=== PATIENT | male | born 1940 | race Caucasian/White ===

== ENCOUNTER → 2017-06-08 | Outpatient (CLI) | payer OTHER ==
[~2017-06-08] MED LIST: ADVIN25050 INH; ALBU1AER9 INH; ASPI81TA21 PO; FURO20TA PO; OXYC-57 PO; SIMV20TA2 PO; TIOTCAP INH; oxygen NAE
[2017-06-08 17:44] LABS: BASO % 0.3 %; BASO ABS # 0.04 K/uL (0-0.2); COMPLETE YES; EOS % 1.5 %; HEMATOCRIT 39.8 % (42-52); IG% 0.6 %; LYMPH % 21.4 %; LYMPH ABS # 3.03 K/uL (1.2-3.4); MEAN CELL VOLUME 96.1 fL (80-100); MEAN CORPUSCULAR HEMOGLOBIN 31.9 pg (25-34); MEAN CORPUSCULAR HGB CONC 33.2 g/dl (32-36); MEAN PLATELET VOLUME 10.2 fL (7.4-10.4); MONO % 6.8 %; NEUT % 69.4 %; PLATELET COUNT 216 K/uL (130-400); RED BLOOD COUNT 4.14 M/uL (4.7-6.1); WHITE BLOOD COUNT 14.17 K/uL (4.8-10.8)
[2017-06-08 17:56] LABS: URINE APPEARANCE CLEAR (CLEAR); URINE BILIRUBIN NEG (NEG); URINE COLOR YELLOW; URINE EPITHELIAL CELL AUTO 0-5 /lpf (0-5); URINE NITRITE NEG (NEG); UROBILINOGEN NEG (NEG); ZZUR CULT IF INDIC CLEAN CATCH NO
[2017-06-08 18:08] LABS: MANUAL MICROSCOPIC REQUIRED? NO; REVIEW REQ? NO
[2017-06-08 18:12] LABS: ALT/SGPT 19 U/L (12-78); AST/SGOT 16 U/L (15-37); BLOOD UREA NITROGEN 20 mg/dl (7-18); BUN/CREATININE RATIO 12.3 (10-20); CALCIUM 9.4 mg/dl (8.5-10.1); CARBON DIOXIDE 30 mmol/L (21-32); CHLORIDE 106 mmol/L (98-107); GLUCOSE 89 mg/dl (70-99); POTASSIUM 4.5 mmol/L (3.5-5.1); SODIUM 141 mmol/L (136-145)
[2017-06-08 18:14] LABS: ALKALINE PHOSPHATASE 99 U/L (45-117); CHOLESTEROL 147 mg/dl (0-200); CHOLESTEROL/HDL RATIO 3.8; HDL CHOLESTEROL 39 mg/dl; LDL CHOLESTEROL CALCULATED 84 mg/dl; TRIGLYCERIDES 120 mg/dl (0-150); VERY LOW DENSITY LIPOPROT CALC 24 mg/dl
== END | disposition home or self-care (01) ==
LOC: C.LABBFT 11:56
PROVIDERS: ATTEND Internal Medicine
DX: I50.9 Heart failure, unspecified (principal); E78.00 Pure hypercholesterolemia, unspecified

== ENCOUNTER → 2017-12-15 | Outpatient (CLI) | payer OTHER ==
[2017-12-15 17:15] LABS: BASO % 0.3 %; BASO ABS # 0.04 K/uL (0-0.2); EOS % 1.5 %; EOS ABS # 0.21 K/uL (0-0.5); HEMATOCRIT 40.9 % (42-52); HEMOGLOBIN 13.4 g/dL (14.0-18.0); IG# 0.11 K/uL (0.00-0.02); LYMPH % 21.2 %; LYMPH ABS # 2.94 K/uL (1.2-3.4); MEAN CELL VOLUME 94.5 fL (80-100); MEAN CORPUSCULAR HEMOGLOBIN 30.9 pg (25-34); MEAN CORPUSCULAR HGB CONC 32.8 g/dl (32-36); MONO % 7.6 %; MONO ABS # 1.05 K/uL (0.11-0.59); NEUT % 68.6 %; NEUT ABS # 9.51 K/uL (1.4-6.5); PLATELET COUNT 214 K/uL (130-400); RED CELL DISTRIBUTION WIDTH CV 14.1 % (11.5-14.5); RED CELL DISTRIBUTION WIDTH SD 48.5 fL (36.4-46.3); WHITE BLOOD COUNT 13.86 K/uL (4.8-10.8)
[2017-12-15 17:38] LABS: ALBUMIN 3.8 gm/dl (3.4-5.0); BLOOD UREA NITROGEN 27 mg/dl (7-18); CALCIUM 9.5 mg/dl (8.5-10.1); CARBON DIOXIDE 29 mmol/L (21-32); CREATININE 1.36 mg/dl (0.60-1.40); GLUCOSE 90 mg/dl (70-99); PHOSPHORUS 3.1 mg/dl (2.5-4.9); POTASSIUM 4.5 mmol/L (3.5-5.1); SODIUM 138 mmol/L (136-145)
== END | disposition home or self-care (01) ==
LOC: C.LABBFT 13:21
PROVIDERS: ATTEND Internal Medicine
DX: D64.9 Anemia, unspecified (principal); N18.3 Chronic kidney disease, stage 3 (moderate)

== ENCOUNTER 2019-08-18 14:00 | Inpatient (IN) ==
[2019-08-18] MEDS ORDERED: methylPREDNISolone 125 MG/2 ML VIAL IV STA (14:16)
[2019-08-18] MEDS ORDERED: ALBUT/IPRATROP 3MG/0.5MG NEB 3 ML VIAL NEB STA (14:16)
[2019-08-18] MEDS ORDERED: SODIUM CHLORIDE 0.9% 500 ML IV ONE ×2 (14:17→15:27)
--- NOTE | 2019-08-18 14:46 | XRay Report ---
SINGLE VIEW CHEST CLINICAL HISTORY: Atypical chest pain. FINDINGS: 2 AP, portable, upright chest radiographs are compared to study dated 04/19/2015. Correlatio n is made with chest CT dated 01/06/2012. The examination is degraded by portable technique and patien t rotation. The cardiomediastinal silhouette is unremarkable noting atherosclerotic calcification of the thoracic aorta. There is advanced emphysematous change. A bleb largely fills the right lung. The re is airspace consolidation seen in the left mid to lower lung and a small left pleural effusion. No pneumothorax is seen. The skeletal structures are osteopenic. The bony thorax is grossly intact. IMPRESSION: 1. Airspace consolidation is seen in the left mid to lower lung and there is a small left pleural eff usion. The appearance is typical for pneumonia/aspiration pneumonitis. Clinical correlation will be r equired and radiographic follow-up to resolution is recommended. 2. Advanced emphysematous change is again noted. A bleb largely fills the right lung and this is unch anged from prior examinations. Electronically signed by: Reggie Huerta M.D. 08/18/2019 2:45 PM
[2019-08-18 14:49] LABS: Basophils # (auto) 0.01 K/uL (0-0.2); Basophils % (auto) 0.1 %; Eosinophils # (auto) 0.01 K/uL (0-0.5); Eosinophils % (auto) 0.1 %; Hematocrit (blood only) 36.1 % (42-52); Hemoglobin 12.1 g/dL (14.0-18.0); Immature Granulocytes # (auto) 0.07 K/uL (0.00-0.02); Immature Granulocytes % (auto) 0.8 %; Lymphocytes # (auto) 0.45 K/uL (1.2-3.4); Lymphocytes % (auto) 5.3 %; Mean Corpuscular Hemoglobin 31.7 pg (25-34); Mean Corpuscular Hgb Conc 33.5 g/dL (32-36); Mean Corpuscular Volume 94.5 fL (80-100); Mean Platelet Volume 10.5 fL (7.4-10.4); Monocytes # (auto) 0.31 K/uL (0.11-0.59); Monocytes % (auto) 3.6 %; Neutrophils # (auto) 7.67 K/uL (1.4-6.5); Neutrophils % (auto) 90.1 %; Platelet Count 154 K/uL (130-400); RDW Standard Deviation 51.6 fL (36.4-46.3); Red Blood Count 3.82 M/uL (4.7-6.1); White Blood Count 8.52 K/uL (4.8-10.8)
[2019-08-18] MEDS ORDERED: PIPERACILL/TAZOBAC CONSULT ACTIVE PRN (14:50)
[2019-08-18] MEDS ORDERED: VANCOMYCIN HCL 1,250 MG in SODIUM CHLORIDE 0.9% 500 ML IV ONE (14:50)
[2019-08-18] MEDS ORDERED: VANCOMYCIN CONSULT ACTIVE PRN (14:50)
[2019-08-18] MEDS ORDERED: PIPERACILLIN/TAZOBACTAM 4.5 GM/120 ML BAG IV ONE (14:50)
[2019-08-18 15:06] LABS: Alanine Aminotransferase 22 U/L (12-78); Albumin Level 2.7 gm/dl (3.4-5.0); Aspartate Aminotransferase 30 U/L (15-37); BUN Creatinine Ratio 24.1 (10-20); Blood Urea Nitrogen 79 mg/dl (7-18); Calcium 9.7 mg/dl (8.5-10.1); Carbon Dioxide 22 mmol/L (21-32); Chloride 109 mmol/L (98-107); Est GFR (African American) 19.6; Glucose 106 mg/dl (70-99); Lipase 25 U/L (73-393); Magnesium 2.6 mg/dl (1.8-2.4); Potassium 5.9 mmol/L (3.5-5.1); Sodium 141 mmol/L (136-145)
[2019-08-18 15:13] LABS: Base Excess VBG -6.8 mEq/L; HCO3 VBG 21 mmol/L; PCO2 VBG 50 mmHg (38-50); PO2 VBG 20 mmHg; pH VBG 7.23 (7.36-7.41)
[2019-08-18 15:15] LABS: Oxygen Saturation VBG < 60.0 %
[2019-08-18 15:16] LABS: Albumin Globulin Ratio 0.5 (0.9-2); Alkaline Phosphatase 115 U/L (45-117); Bilirubin,Total 1.3 mg/dl (0.2-1); NT Pro B Type Natriuretic Pept 21648 pg/ml (0-1800); Phosphorus 5.9 mg/dl (2.5-4.9); Total Protein 7.7 gm/dl (6.4-8.2); Troponin I 0.141 ng/ml (0-0.045)
--- NOTE | 2019-08-18 16:31 | History & Physical Report ---
Date of Service August 18, 2019 Assessment & Plan (1) Sepsis: Admits to PCU on telemetry. Vital signs every 4 hours Patient was started on vancomycin and Zosyn in the ER for pneumonia. Continue continued treatment with vancomycin and Zosyn for hospital-acquired pneumonia and sepsis. Repeated lactate trended down from 2.7-1.8. DVT prophylaxis heparin 5000 units every 12 hours. Pulmonology consult placed. Dr. Arita informed. Continue supplemental oxygen and BiPAP. Follow-up blood cultures. Continue Solu-Medrol 40 mg IV twice daily. Continue duo nebs and home medicine albuterol sulfate 90 MCG's 2 puffs every 4 hours as needed, Advair discus 1 each inhalation twice daily. Spiriva 1 cap inhalation daily. And increase as per RT. Full code Present on Admission?: Yes (2) Pneumonia: As above Present on Admission?: Yes (3) Acute on chronic respiratory failure: As above Refer to pulmonary. She will most likely need pulmonary rehabilitation. Present on Admission?: Yes (4) Pulmonary hypertension, secondary: Continue current regimen. Will discuss with pulmonary Dr. Arita. Present on Admission?: Yes (5) Pulmonary emphysema: As above Present on Admission?: Yes (6) Hypercholesterolemia: Lipid panel pending. Continue atorvastatin 80 mg p.o. every afternoon. Present on Admission?: Yes (7) Elevated prostate specific antigen (PSA): PSA pending. Follow-up with the results. Present on Admission?: Yes (8) Chronic kidney disease, stage IV (severe): Avoid nephrotoxic agents. Patient creatinine is worsening. Refered to nephrology. Patient appears to be intravascularly dry,with some third spacing such as small left pleural effusion. Present on Admission?: Yes (9) Cardiac failure: Patient appears to be euvolemic. Elevated BNP is due to poor clearance and caused by failing kidneys. Present on Admission?: Yes (10) Anemia: Appears to be of chronic disease. Continue monitoring H&H. Present on Admission?: Yes (11) Elevated troponin: Likely due to worsening renal failure and poor clearance. Patient does not have complaints of chest pain. There are noted T wave inversion in inferior leads, anterior leads and lateral leads. Could be a sign of demand ischemia due to acute infection associated with sepsis and tachycardia. Plan to do TTE. Will repeat troponin in addition x2 with EKG. Consider consulting cardiology in a.m. Present on Admission?: Yes History of Present Illness Chief Complaint: Acute respiratory failure, hypoxia and shortness of breath associated with cough. Primary Care Provider: Andrew Matthews MD Patient is a 79 years old male with past medical history of abdominal aortic aneurysm without rupture, congestive heart failure, chronic kidney disease stage III, chronic respiratory failure, elevated PSA, hypercholesterolemia, COPD/emphysema who presents to the emergency room with a complaint of constant shortness of breath that started yesterday and it is worsening. She reports that shortness of breath is associated with cough with very small amount of sputum. Patient was given DuoNeb treatments en route to the emergency department which he reports made him feel better. Patient said that he is typically on oxygen 2 to 3L but denies using BiPAP or CPAP. Patient continues chewing tobacco but states that he quit smoking approximately 15 years ago. Patient denies having fever, chills, headache, chest pain, abdominal pain, frequency, urgency, syncope or near syncope. Labs are reviewed: Which shows WBCs of 8.52, hemoglobin 12.1, hematocrit 36.1. PT 10.9, INR 1.1, APTT 34.3. Gas pH 7.23, PCO2 50, PO2 20, HCO2 21, sodium 141, potassium 5.9-we will repeat potassium BMP stat pending, BUN 79, creatinine 3.28, GFR of 17, lactate of 2.7 repeated 1.8, calcium of 9.7, phosphorus 5.9 , magnesium 2.6, total bilirubin 1.3, AST 30, ALT 22, alkaline phosphatase 115, troponin 0 0.141, BNP 40306, lipase 25, procalcitonin 7.4 extremely high TSH 0.624. Blood cultures pending. Chest x-ray significant for a spares consolidation in the left mid to lower lung and there is a small left pleural effusion. The appearance is typical for pneumonia/aspiration pneumonitis. Advanced emphysematous changes is again noted. Labs largely feels the right lung and this is unchanged from the prior examination. Emergency room patient was given DuoNeb x1, 1 L of normal saline bolus, Solu-Medrol 125 mg x 1, Zosyn 4.5 mg x 1, BiPAP. Decision was made to admit patient to PCU on telemetry for further management and treatment of pneumonia, respiratory failure, sepsis and hypoxia. Allergies Allergy/AdvReac Type Severity Reaction Status Date / Time No Known Allergies Allergy Unknown Verified 08/18/19 16:18 Home Medications Home Medications Medication Instructions Recorded Confirmed Type Oxygen Home #1 ea 06/13/19 06/13/19 History albuterol sulfate 90 mcg/actuation 2 puffs INHALATION Q4H PRN #3 gm 06/13/19 08/18/19 History aerosol inhaler aspirin [Aspir-81] 81 mg PO Q OTHER DAY 08/18/19 08/18/19 History atorvastatin [Lipitor] 80 mg PO QPM 08/18/19 08/18/19 History fluticasone propion-salmeterol 1 ea INHALATION BID 08/18/19 08/18/19 History [Advair Diskus] furosemide [Lasix] 20 mg PO DAILY 08/18/19 08/18/19 History metoprolol succinate [Toprol XL] 25 mg PO DAILY 08/18/19 08/18/19 History potassium chloride [Klor-Con M20] 20 meq PO BID 08/18/19 08/18/19 History tiotropium bromide [Spiriva with 1 cap INHALATION DAILY 08/18/19 08/18/19 History HandiHaler] Past Med/Surg History Medical History Anemia (Acute) Cardiac failure (Acute) Chronic kidney disease, stage 3 (Acute) Chronic respiratory failure (Acute) COPD (chronic obstructive pulmonary disease) Elevated prostate specific antigen (PSA) (Acute) Hypercholesterolemia (Acute) Hypokalemia (Acute) Leukocytosis (Acute) Pulmonary emphysema (Acute) Pulmonary hypertension, secondary (Acute) Vitamin D deficiency (Acute) Family History Other No significant family history Social History Preferred Language: Hebrew Communication Ability: Effective Roofer Required: No Beliefs That Will Affect Care: None Current Living Situation: Alone Other Information That Helps Us Care for You: No Feels Safe at Home: Yes Safety Concerns: Feels Safe At This Time Smoking Status: Former smoker Do You Dip or Chew Tobacco: Yes (1 can of snuff /week.) ; Smoking End Date: 15 years ago. ; Second Hand Exposure: No ; Tobacco Cessation Education Requested by Patient: No Hx Alcohol Use: No Hx Substance Use: No Review of Systems Review of Systems: All systems reviewed & are unremarkable except as noted in HPI & below Physical Exam Constitutional: WD/WN, vitals as above well developed and + cachectic Eyes: PERRL, conjunctivae normal, anicteric sclerae ENMT: external ear and nose normal, oropharynx normal Neck: trachea midline, no thyromegaly Respiratory: + respiratory distress Auscultation: + crackles and + wheezes Cardiovascular: Heart Sounds: normal S1 and normal S2 Vessels: dorsalis pedis pulses present Musculoskeletal: no cyanosis or clubbing, extremities motor strength 5/5 Skin: no rashes, warm and dry Neurologic: patellar DTR's 2+ bilat, sensation intact Psychiatric: A+Ox3, euthymic affect Lymphatic: no cervical or axillary lymphadenopathy Results & Data Vital Signs (Past 12 Hours) Vital Signs Temp Pulse Pulse Resp BP Pulse Ox 08/18/19 16:00 110 H 21 97 08/18/19 15:30 115 H 27 H 94 08/18/19 15:00 115 H 25 H 95 08/18/19 14:30 118 H 19 08/18/19 14:26 119 H 25 H 93 08/18/19 14:25 119 H 25 H 93 08/18/19 14:16 122 H 19 92 08/18/19 14:05 36.6 C 124 H 21 107/77 89 L Code Status & VTE Plan Code Status Full Code VTE Prophylaxis Plan VTE Prophylaxis will be ordered: Yes PG Care Time/CCT Total # of Minutes Spent Total Time Spent with Patient: Total time spent is greater than 50% in environmental services coordinator rdination of care (as documented) at patient's floor/unit and/or counseling patient: (1) Sepsis Sepsis acute organ dysfunction status: unspecified Sepsis type: sepsis due to unspecified organism Qualified Code(s): A41.9 - Sepsis, unspecified organism (2) Pneumonia Laterality: unspecified laterality Lung location: unspecified part of lung Pneumonia type: due to unspecified organism Qualified Code(s): J18.9 - Pneumonia, unspecified organism (3) Acute on chronic respiratory failure Respiratory failure complication: hypoxia Qualified Code(s): J96.21 - Acute and chronic respiratory failure with hypoxia
--- NOTE | 2019-08-18 16:32 | Emergency Department Note ---
Entered by Trace Dejesus acting as a scribe for Hernan White MD History of Present Illness General Chief complaint: Shortness of Breath/Dyspnea Stated complaint: sob Time Seen by Provider: 08/18/19 14:01 Source: patient and RN notes reviewed History of Present Illness Onset (ago): day(s) (yesterday) Location: chest Pain Consistency: + constant Quality: + other (shortness of breath) Associated symptoms: + cough; no chest pain Treatments prior to arrival: other (Duoneb) The patient is a 79 year old male, with past medical history of COPD and emphysema, who presents to the Emergency Room with complaints of constant shortness of breath beginning yesterday. The RN notes the patient denies having chest pain, but she states the patient has had a cough. The patient states he is bringing up very little sputum with his cough. The RN also notes the patient was given a Duoneb treatment en route to the ED, which the patient reports made him feel better. The patient states he is typically on oxygen, but he denies ever using a BIPAP or CPAP. The patient states he does not believe his present symptoms are a flare up of his emphysema, as he notes his present symptoms feel different from his past emphysema flare ups. The patient admits to chewing tobacco, but he states he quit smoking about 15 years ago. Home Medications Home Medications Medication Instructions Recorded Confirmed Type Oxygen Home #1 ea 06/13/19 06/13/19 History albuterol sulfate 90 mcg/actuation 2 puffs INHALATION Q4H PRN #3 gm 06/13/19 08/18/19 History aerosol inhaler aspirin [Aspir-81] 81 mg PO Q OTHER DAY 08/18/19 08/18/19 History atorvastatin [Lipitor] 80 mg PO QPM 08/18/19 08/18/19 History fluticasone propion-salmeterol 1 ea INHALATION BID 08/18/19 08/18/19 History [Advair Diskus] furosemide [Lasix] 20 mg PO DAILY 08/18/19 08/18/19 History metoprolol succinate [Toprol XL] 25 mg PO DAILY 08/18/19 08/18/19 History potassium chloride [Klor-Con M20] 20 meq PO BID 08/18/19 08/18/19 History tiotropium bromide [Spiriva with 1 cap INHALATION DAILY 08/18/19 08/18/19 History HandiHaler] Allergies Allergy/AdvReac Type Severity Reaction Status Date / Time No Known Allergies Allergy Unknown Verified 08/18/19 16:18 Past Med/Surg History Medical History Anemia (Acute) Cardiac failure (Acute) Chronic kidney disease, stage 3 (Acute) Chronic respiratory failure (Acute) COPD (chronic obstructive pulmonary disease) Elevated prostate specific antigen (PSA) (Acute) Hypercholesterolemia (Acute) Hypokalemia (Acute) Leukocytosis (Acute) Pulmonary emphysema (Acute) Pulmonary hypertension, secondary (Acute) Vitamin D deficiency (Acute) Family History Other No significant family history Social History Preferred Language: Tam[place] Communication Ability: Effective Medical Office Specialist Required: No Beliefs That Will Affect Care: None Current Living Situation: Alone Other Information That Helps Us Care for You: No Feels Safe at Home: Yes Safety Concerns: Feels Safe At This Time Smoking Status: Former smoker Do You Dip or Chew Tobacco: Yes (1 can of snuff /week.) ; Smoking End Date: 15 years ago. ; Second Hand Exposure: No ; Tobacco Cessation Education Requested by Patient: No Hx Alcohol Use: No Hx Substance Use: No Review of Systems See HPI for pertinent positives & negatives. and A total of 10 systems reviewed and were otherwise negative Physical Exam Vital Signs Vital Signs - 24 hr 08/18/19 14:05 08/18/19 14:16 08/18/19 14:25 Temperature 36.6 C Temperature Source Oral Pulse Rate 124 H 122 H 119 H Pulse Rate [Apical] Pulse Rate from SpO2 Sensor 122 H Respiratory Rate 21 19 25 H Respiratory Effort / Characteristics Spontaneous Accessory Muscle Use Labored Short of Breath Spontaneous Respiratory Depth Deep Respiratory Pattern Tachypnea Blood Pressure 107/77 Blood Pressure Mean 91 Pulse Oximetry 89 L 92 93 Oxygen Delivery Method Non-rebreather Oxygen Flow Rate 3 Fraction of Inspired Oxygen 60 Sepsis Recent Fever Within 48 Hours No Sepsis New/Unexplained Change in Mental Status No Sepsis Action Taken by Nursing No Action Required Oxygen Flow Rate - Titration 15 08/18/19 14:26 08/18/19 14:30 08/18/19 15:00 Temperature Temperature Source Pulse Rate 118 H 115 H Pulse Rate [Apical] 119 H Pulse Rate from SpO2 Sensor 129 H 116 H Respiratory Rate 25 H 19 25 H Respiratory Effort / Characteristics Spontaneous Respiratory Depth Respiratory Pattern Blood Pressure Blood Pressure Mean Pulse Oximetry 93 95 Oxygen Delivery Method BiPAP Oxygen Flow Rate Fraction of Inspired Oxygen 60 Sepsis Recent Fever Within 48 Hours Sepsis New/Unexplained Change in Mental Status Sepsis Action Taken by Nursing Oxygen Flow Rate - Titration 08/18/19 15:30 08/18/19 16:00 08/18/19 16:12 Temperature Temperature Source Pulse Rate 115 H 110 H Pulse Rate [Apical] Pulse Rate from SpO2 Sensor 109 H 111 H Respiratory Rate 27 H 21 Respiratory Effort / Characteristics Spontaneous Respiratory Depth Respiratory Pattern Blood Pressure Blood Pressure Mean Pulse Oximetry 94 97 Oxygen Delivery Method BiPAP Oxygen Flow Rate Fraction of Inspired Oxygen 40 Sepsis Recent Fever Within 48 Hours Sepsis New/Unexplained Change in Mental Status Sepsis Action Taken by Nursing Oxygen Flow Rate - Titration GENERAL: Chronically ill and cachectic appearing. HENT: Normocephalic, atraumatic. Oropharynx with dry mucous membranes and otherwise unremarkable. Poor dentition. EYES: Normal conjunctiva. Sclera non-icteric. NECK: Supple. No nuchal rigidity. FROM. No JVD. RESPIRATORY: In moderate respiratory distress with accessory muscle use. Diminished breath sounds throughout. CARDIAC: tachycardic rate, normal rhythm. Extremities warm and well perfused. Pulses equal. ABDOMEN: Soft, non-distended. No tenderness to palpation. No rebound or guarding. No masses. RECTAL: Deferred. MUSCULOSKELETAL: Chest examination reveals no tenderness. The back is symmetrical on inspection without obvious abnormality. There is no CVA tenderness to palpation. No joint edema. LOWER EXTREMITIES: Calves are equal size bilaterally and non-tender. No edema. No discoloration. NEURO: Normal sensorium. No sensory or motor deficits noted. SKIN: No rash or jaundice noted. Course Course 1411: Past medical records reviewed. The patient was evaluated in room A11B. A complete history and physical exam was performed. 1520: I reviewed the [facility]. Dr. Wallace will evaluate the patient for further management. Consultations Consultation #1: I reviewed the patient's case with Dr. Wallace-[facility]. Dr. Wallace will evaluate the patient for further management. Time: 15:20 Administered Medications Albuterol (Duoneb) 3 ml NEB Q4R SAYRA Stop: 09/17/19 18:59 Last Admin: 08/19/19 03:17 Dose: 3 ml Documented by: [id number] Admin: 08/18/19 22:58 Dose: 3 ml Documented by: [id number] Admin: 08/18/19 19:47 Dose: 3 ml Documented by: [id number] Heparin Sodium (Porcine) (Heparin Sodium (Porcine)) 5,000 units SQ Q12 SAYRA Stop: 09/17/19 20:59 Last Admin: 08/18/19 21:09 Dose: 5,000 units Documented by: [id number] Cosigned by: [id number] Methylprednisolone 30 mg/ (Syringe) 0.48 mls @ 1.5 mls/min IV Q12H SAYRA Stop: 09/17/19 18:59 Last Admin: 08/18/19 19:28 Dose: 1.5 mls/min Documented by: [id number] Piperacillin Sod/Tazobactam (Sod 3.375 gm/ Dextrose) 115 mls @ 28.75 mls/hr IV Q12H SAYRA; Protocol Stop: 08/26/19 00:00 Last Admin: 08/19/19 00:00 Dose: 28.8 mls/hr Documented by: [id number] Fluticasone/Salmeterol (Advair Diskus 500/50) 1 puffs INH BID SAYRA Stop: 09/17/19 20:59 Last Admin: 08/18/19 21:09 Dose: 1 puffs Documented by: [id number] Tiotropium Bradshaw (Spiriva) 1 puffs INH DAILY SAYRA Stop: 09/17/19 18:59 Last Admin: 08/18/19 20:43 Dose: 1 puffs Documented by: [id number] Discontinued Medications Albuterol (Duoneb) 3 ml NEB NOW STA Stop: 08/18/19 14:17 Last Admin: 08/18/19 14:24 Dose: 3 ml Documented by: [id number] Sodium Chloride (Nss) 500 mls @ 999 mls/hr IV .Q31M ONE Stop: 08/18/19 14:47 Last Infusion: 08/18/19 15:14 Dose: 0 mls/hr Documented by: [id number] Admin: 08/18/19 14:36 Dose: 999 mls/hr Documented by: [id number] Piperacillin Sod/Tazobactam Sod (Zosyn) 4.5 gm in 120 mls @ 240 mls/hr IV NOW ONE Stop: 08/18/19 15:19 Last Infusion: 08/18/19 16:16 Dose: 0 mls/hr Documented by: [id number] Admin: 08/18/19 15:39 Dose: 240 mls/hr Documented by: [id number] Vancomycin HCl 1,250 mg/ (Sodium Chloride) 525 mls @ 200 mls/hr IV NOW ONE Stop: 08/18/19 17:27 Last Infusion: 08/18/19 18:16 Dose: 0 mls/hr Documented by: [id number] Admin: 08/18/19 15:38 Dose: 200 mls/hr Documented by: [id number] Sodium Chloride (Nss) 500 mls @ 999 mls/hr IV .Q31M ONE Stop: 08/18/19 15:57 Last Infusion: 08/18/19 17:22 Dose: 0 mls/hr Documented by: [id number] Admin: 08/18/19 16:16 Dose: 999 mls/hr Documented by: [id number] Furosemide 20 mg/ Syringe 2 mls @ 4 mls/min IV [id number] SAYRA Stop: 09/17/19 20:59 Last Admin: 08/18/19 19:29 Dose: 4 mls/min Documented by: [id number] Sodium Chloride (Nss 1000ml) 1,000 mls @ 80 mls/hr IV .[id number] SAYRA Stop: 08/19/19 06:41 Last Admin: 08/18/19 18:40 Dose: 80 mls/hr Documented by: [id number] Methylprednisolone (Solumedrol) 125 mg IV NOW STA Stop: 08/18/19 14:17 Last Admin: 08/18/19 14:36 Dose: 125 mg Documented by: [id number] Critical Care Time Critical Care Time: Yes Total Critical Care Time: 55 I have personally spent 55 minutes of critical care time in the direct management of this patient. This includes bedside care, interpretation of diagnostic studies, and testing, discussion with consultants, patient, and family members, and other required patient management activities. This 55 minutes is in excess of all separately billable procedures. Medical Decision Making Differential Diagnosis Differential diagnosis: Etiologies such as infections, reactive airway disease, pneumonia, pneumothorax, COPD, CHF, cardiac ischemia, pulmonary embolism, musculoskeletal, gastrointestinal, as well as others were entertained. Medical Records Attestation: I reviewed the patient's medical records. Home Medications Current Medication List: was personally reviewed by me Laboratory Data Attestation: I reviewed the patient's lab results. Result diagrams: 08/19/19 02:34 08/19/19 02:34 Lab Results 08/18/19 08/18/19 08/18/19 Range/Units 14:35 14:35 14:35 WBC 8.52 (4.8-10.8) K/uL RBC 3.82 L (4.7-6.1) M/uL Hgb 12.1 L (14.0-18.0) g/dL Hct 36.1 L (42-52) % MCV 94.5 (80-100) fL MCH 31.7 (25-34) pg MCHC 33.5 (32-36) g/dL RDW Std Deviation 51.6 H (36.4-46.3) fL RDW Coeff of Rupali 15.0 H (11.5-14.5) % Plt Count 154 (130-400) K/uL MPV 10.5 H (7.4-10.4) fL Immature Gran % (Auto) 0.8 % Neut % (Auto) 90.1 % Lymph % (Auto) 5.3 % Banner % (Auto) 3.6 % Eos % (Auto) 0.1 % Baso % (Auto) 0.1 % Immature Gran # (Auto) 0.07 H (0.00-0.02) K/uL Neut # (Auto) 7.67 H (1.4-6.5) K/uL Lymph # (Auto) 0.45 L (1.2-3.4) K/uL Banner # (Auto) 0.31 (0.11-0.59) K/uL Eos # (Auto) 0.01 (0-0.5) K/uL Baso # (Auto) 0.01 (0-0.2) K/uL PT (9.0-12.0) Seconds INR (0.9-1.1) APTT (21.0-31.0) Seconds PTT Ratio VBG pH (7.36-7.41) VBG pCO2 (38-50) mmHg VBG pO2 mmHg VBG HCO3 mmol/L VBG O2 Saturation % VBG Base Excess mEq/L Barometric Pressure mm/Hg Sodium 141 (136-145) mmol/L Potassium 5.9 H (3.5-5.1) mmol/L Chloride 109 H (98-107) mmol/L Carbon Dioxide 22 (21-32) mmol/L Anion Gap 11.0 (3-11) BUN 79 H (7-18) mg/dl Creatinine 3.28 H (0.6-1.4) mg/dl Est Cr Clr Drug Dosing Not Reportable Est GFR ( Amer) 19.6 Est GFR (Non-Af Amer) 17.0 BUN/Creatinine Ratio 24.1 H (10-20) Glucose 106 H (70-99) mg/dl Lactate 2.7 H* (0.4-2.0) mmol/L Calcium 9.7 (8.5-10.1) mg/dl Phosphorus 5.9 H (2.5-4.9) mg/dl Magnesium 2.6 H (1.8-2.4) mg/dl Total Bilirubin 1.3 H (0.2-1) mg/dl AST 30 (15-37) U/L ALT 22 (12-78) U/L Alkaline Phosphatase 115 (45-117) U/L Troponin I 0.141 H* (0-0.045) ng/ml NT-Pro-B Natriuret Pep 69704 H (0-1800) pg/ml Total Protein 7.7 (6.4-8.2) gm/dl Albumin 2.7 L (3.4-5.0) gm/dl Globulin 5.0 H (2.5-4.0) gm/dl Albumin/Globulin Ratio 0.5 L (0.9-2) Lipase 25 L (73-393) U/L Procalcitonin (0-0.5) ng/ml 08/18/19 08/18/19 08/18/19 Range/Units 14:35 14:35 15:01 WBC (4.8-10.8) K/uL RBC (4.7-6.1) M/uL Hgb (14.0-18.0) g/dL Hct (42-52) % MCV (80-100) fL MCH (25-34) pg MCHC (32-36) g/dL RDW Std Deviation (36.4-46.3) fL RDW Coeff of Rupali (11.5-14.5) % Plt Count (130-400) K/uL MPV (7.4-10.4) fL Immature Gran % (Auto) % Neut % (Auto) % Lymph % (Auto) % Banner % (Auto) % Eos % (Auto) % Baso % (Auto) % Immature Gran # (Auto) (0.00-0.02) K/uL Neut # (Auto) (1.4-6.5) K/uL Lymph # (Auto) (1.2-3.4) K/uL Banner # (Auto) (0.11-0.59) K/uL Eos # (Auto) (0-0.5) K/uL Baso # (Auto) (0-0.2) K/uL PT 10.9 (9.0-12.0) Seconds INR 1.1 (0.9-1.1) APTT 34.3 H (21.0-31.0) Seconds PTT Ratio 1.3 VBG pH 7.23 L (7.36-7.41) VBG pCO2 50 (38-50) mmHg VBG pO2 20 mmHg VBG HCO3 21 mmol/L VBG O2 Saturation < 60.0 % VBG Base Excess -6.8 mEq/L Barometric Pressure 736.4 mm/Hg Sodium (136-145) mmol/L Potassium (3.5-5.1) mmol/L Chloride (98-107) mmol/L Carbon Dioxide (21-32) mmol/L Anion Gap (3-11) BUN (7-18) mg/dl Creatinine (0.6-1.4) mg/dl Est Cr Clr Drug Dosing Est GFR ( Amer) Est GFR (Non-Af Amer) BUN/Creatinine Ratio (10-20) Glucose (70-99) mg/dl Lactate (0.4-2.0) mmol/L Calcium (8.5-10.1) mg/dl Phosphorus (2.5-4.9) mg/dl Magnesium (1.8-2.4) mg/dl Total Bilirubin (0.2-1) mg/dl AST (15-37) U/L ALT (12-78) U/L Alkaline Phosphatase (45-117) U/L Troponin I (0-0.045) ng/ml NT-Pro-B Natriuret Pep (0-1800) pg/ml Total Protein (6.4-8.2) gm/dl Albumin (3.4-5.0) gm/dl Globulin (2.5-4.0) gm/dl Albumin/Globulin Ratio (0.9-2) Lipase (73-393) U/L Procalcitonin 7.40 H (0-0.5) ng/ml Imaging Data Radiologist's Impression: Radiology results as stated below per my review and the radiologist's interpretation: SINGLE VIEW CHEST CLINICAL HISTORY: Atypical chest pain. FINDINGS: 2 AP, portable, upright chest radiographs are compared to study dated 04/19/2015. Correlation is made with chest CT dated 01/06/2012. The examination is degraded by portable technique and patient rotation. The cardiomediastinal silhouette is unremarkable noting atherosclerotic calcification of the thoracic aorta. There is advanced emphysematous change. A bleb largely fills the right lung. There is airspace consolidation seen in the left mid to lower lung and a small left pleural effusion. No pneumothorax is seen. The skeletal structures are osteopenic. The bony thorax is grossly intact. IMPRESSION: 1. Airspace consolidation is seen in the left mid to lower lung and there is a small left pleural effusion. The appearance is typical for pneumonia/aspiration pneumonitis. Clinical correlation will be required and radiographic follow-up to resolution is recommended. 2. Advanced emphysematous change is again noted. A bleb largely fills the right lung and this is unchanged from prior examinations. Electronically signed by: Reggie Huerta M.D. 08/18/2019 2:45 PM ECG Data Attestation: I personally reviewed and interpreted this ECG as follows: Indication: + SOB/dyspnea Rate (beats per minute): 133 Rhythm: + sinus tachycardia ECG [place]: + Normal ECG ST segments: no Normal ST segments (ST and T wave abnormalities anteriorly), no ST depression and no ST elevation ECG Findings: + Other (QTC 419; lateral artifact ) Additional Comments: REPEAT ECG: Sinus tachycardia. Rate of 115. Occasional PVCs. Normal axis. No acute ischemia. ST and T wave abnormalities anteriorly. QTC 442 Blood Pressure Blood Pressure Findings: Normal blood pressure MDM Narrative The patient is a pleasant 79-year-old gentleman with a past medical history of emphysema and pulmonary hypertension who presents emergency department with worsening shortness of breath over the past 24 hours per HPI. On arrival the patient is in moderate respiratory distress, cachectic and dry appearing. He is using accessory muscle use. And saturating low 90s on 6 L nasal cannula. Given the patient's respiratory failure patient was placed on BiPAP on arrival given steroids and DuoNeb with improvement in his work of breathing. EKG without overt acute ischemia. Chest x-ray demonstrates chronic large right- sided bleb and likely left sided aspiration pneumonia. WBC within normal limits. H/H 12.1/36.1 approximate 2 prior range of values. Platelets within normal limits. Chemistry demonstrates acute on chronic renal failure with creatinine of 3.2 increased from the patient's baseline of 1.2-2.0. Potassium is 5.9 likely related to the patient's dehydration. There are no EKG changes at this time. Lactate 2.7 and VBG pH 7.23 however no significant acidosis on chemistry. Troponin 0.14 likely related to demand in the setting of the patient's pneumonia. BNP 21K, in the setting of the patient's history of pulmonary hypertension. However the patient does appear clinically dry at this time in the setting of suspicion for sepsis. Blood cultures were drawn. The patient was ordered for vancomycin and Zosyn for empiric broad coverage. Case was discussed with Dr. Wallace [facility] hospitalist, who will evaluate the patient for admission. Continuous Cardiac Monitoring: Indication: Respiratory failure Rhythm: Sinus tachycardia Rate: 119 Other: 95% on Bipap 40% FiO2 Impression & Plan Sepsis, Pneumonia, Acute on chronic respiratory failure, Elevated troponin, Acute on chronic kidney failure Discharge Plan Visit Data *Final* Discharge Date/Time: 08/18/19 17:30 Chief Complaint: Shortness of Breath/Dyspnea Stated Complaint: sob ED Provider: Hernan White Discharge Problem: Sepsis, Pneumonia, Acute on chronic respiratory failure, Elevated troponin, Acute on chronic kidney failure Patient Disposition: Admitted As Inpatient Discharge Instructions Interventions: ED Discharge Assessment Last Done: 08/18/19 17:30 Discharge Problem: Sepsis Qualifiers: Sepsis type: sepsis due to unspecified organism Sepsis acute organ dysfunction status: unspecified Qualified Code(s): A41.9 - Sepsis, unspecified organism Pneumonia Qualifiers: Pneumonia type: due to unspecified organism Laterality: unspecified laterality Lung location: unspecified part of lung Qualified Code(s): J18.9 - Pneumonia, unspecified organism Acute on chronic respiratory failure Qualifiers: Respiratory failure complication: hypoxia Qualified Code(s): J96.21 - Acute and chronic respiratory failure with hypoxia The scribe's documentation has been prepared under my direction and personally reviewed by me in its entirety. I confirm that the note above accurately reflects all work, treatment, procedures, and medical decision making performed by me.
[2019-08-18] MEDS ORDERED: SODIUM CHLORIDE 0.9% 1000ML 1,000 ML IV SCH (18:12)
[2019-08-18] MEDS ORDERED: ALUMINUM/MAGNESIUM SUSP 30 ML UDC PO PRN (18:12)
[2019-08-18] MEDS ORDERED: MAGNESIUM HYDROXIDE SUSP 30 ML UDC PO PRN (18:12)
[2019-08-18] MEDS ORDERED: ACETAMINOPHEN 325 MG TAB PO PRN (18:12)
[2019-08-18] MEDS ORDERED: POLYETHYLENE (MIRALAX) 17 GM PACK PO PRN (18:12)
[2019-08-18] MEDS ORDERED: ALBUTEROL HFA 8 GM INHALER INH PRN (18:24)
[2019-08-18 18:33] LABS: INR 1.1 (0.9-1.1); Partial Thromboplastin Ratio 1.3; Partial Thromboplastin Time 34.3 Seconds (21.0-31.0); Prothrombin Time 10.9 Seconds (9.0-12.0)
[2019-08-18] MEDS ORDERED: ALBUTEROL HFA 8 GM INHALER INH SCH (19:00)
[2019-08-18] MEDS ORDERED: FUROSEMIDE 20 MG TAB PO SCH (19:00)
[2019-08-18 19:27] LABS: Thyroid Stimulating Hormone 0.624 uIu/ml (0.300-4.500)
[2019-08-18] MEDS: methylPREDNISolone 30 MG in SYRINGE 0 ML IV SCH (19:28)
--- NOTE | 2019-08-18 19:43 | Pharmacy Report ---
Pharmacy Abx Initial Consult - Date of Service August 18, 2019 - Pharmacy Dosing Scope Date of Consult: 08/18/19 Consultation requested by: Dr. Wallace Pharmacy is consulted to initiate vancomycin and Zosyn IV dosing therapy, order appropriate labs and adjust drug dose/frequency. - Subjective The patient is a 79 year old M admitted on 08/18/19 16:26. - Objective Height: 5 ft 10 in Weight: 69.5 kg Vital Signs (Past 12hrs): Vital Signs Temp Pulse Pulse Resp BP BP Pulse Ox 08/18/19 19:08 36.4 C L 106 H 20 100/60 92 08/18/19 18:30 112 H 08/18/19 18:12 36.6 C 108 H 20 117/78 92 08/18/19 18:05 113 H 24 92 08/18/19 17:37 104 H 23 94 08/18/19 16:00 110 H 21 97 08/18/19 15:30 115 H 27 H 94 08/18/19 15:00 115 H 25 H 95 08/18/19 14:30 118 H 19 08/18/19 14:26 119 H 25 H 93 08/18/19 14:25 119 H 25 H 93 08/18/19 14:16 122 H 19 92 08/18/19 14:05 36.6 C 124 H 21 107/77 89 L Lab Results (24hrs): Laboratory Tests (24 Hours) 08/18/19 08/18/19 08/18/19 14:35 14:35 14:35 WBC 8.52 Neut # (Auto) 7.67 H Creatinine 3.28 H Est Cr Clr Drug Dosing Not Reportable Procalcitonin 7.40 H Micro Results: 08/18/19 15:01 Aerobic Blood Culture - Pending Blood Anaerobic Blood Culture - Pending 08/18/19 14:35 Aerobic Blood Culture - Pending Blood Anaerobic Blood Culture - Pending - Assessment & Plan Assessment 79 year old M admitted with possible pneumonia Plan vancomycin/Zosyn for treatment of pneumonia Vancomycin IV * Estimated PK Parameters: Vd 0.7 L/kg, Mohan 0.019 hr-1, t1/2 36 hr * Loading dose: 1250 mg (18 mg/kg) * Goal trough level for pulmonary infection : 15 to 20 mcg/mL * Random level ordered for 08/19/19 * Do not expect level to fall below 15 tomorrow - check random in the morning and dose accordingly Piperacillin/tazobactam * 4.5 g bolus administered over 30 minutes, then 3.375 every 12 hours for CrCl 20 mL/min or less and dialysis. Pharmacy will continue to follow and will adjust dose/frequency as necessary. Thank you.
[2019-08-18] MEDS: ALBUT/IPRATROP 3MG/0.5MG NEB 3 ML VIAL NEB SCH ×2 (19:47→22:58)
[2019-08-18] MEDS: TIOTROPIUM BROMIDE 5 PUFF/90 MCG INH INH SCH (20:43)
[2019-08-18] MEDS ORDERED: FUROSEMIDE 20 MG in SYRINGE 0 ML IV SCH (21:00)
[2019-08-18] MEDS: FLUTICASONE/SALMETEROL (ADVAIR) 500/50 INH 14 PUFF INH SCH (21:09)
[2019-08-18] MEDS: HEPARIN SOD 5,000 UNIT/0.5 ML VIAL SQ SCH (21:09)
[2019-08-19] MEDS ORDERED: PIPERACILLIN/TAZOBACTAM 3.375 GM in DEXTROSE 5% 100 ML IV SCH
[2019-08-19 01:06] LABS: BUN Creatinine Ratio 27.9 (10-20); Calcium 9.3 mg/dl (8.5-10.1); Est GFR (African American) 22.3; Est GFR (Non-African American) 19.3; Potassium 5.2 mmol/L (3.5-5.1)
[2019-08-19 03:01] LABS: Hematocrit (blood only) 33.1 % (42-52); Hemoglobin 10.8 g/dL (14.0-18.0); Immature Granulocytes # (auto) 0.08 K/uL (0.00-0.02); Lymphocytes # (auto) 0.34 K/uL (1.2-3.4); Lymphocytes % (auto) 4.2 %; Mean Corpuscular Hemoglobin 30.9 pg (25-34); Mean Corpuscular Hgb Conc 32.6 g/dL (32-36); Mean Corpuscular Volume 94.6 fL (80-100); Monocytes # (auto) 0.23 K/uL (0.11-0.59); Monocytes % (auto) 2.8 %; Neutrophils # (auto) 7.51 K/uL (1.4-6.5); Platelet Count 139 K/uL (130-400); RDW Coefficient of Variation 15.2 % (11.5-14.5); RDW Standard Deviation 52.3 fL (36.4-46.3); White Blood Count 8.16 K/uL (4.8-10.8)
[2019-08-19 03:16] LABS: INR 1.1 (0.9-1.1); Prothrombin Time 10.9 Seconds (9.0-12.0)
[2019-08-19] MEDS: ALBUT/IPRATROP 3MG/0.5MG NEB 3 ML VIAL NEB SCH ×6 (03:17→22:41)
[2019-08-19 03:19] LABS: Albumin Level 2.3 gm/dl (3.4-5.0); BUN Creatinine Ratio 26.3 (10-20); Calcium 9.1 mg/dl (8.5-10.1); Creatinine Clr Calc Pharmacy 19.8 ml/min; Est GFR (African American) 22.1; Potassium 4.7 mmol/L (3.5-5.1)
[2019-08-19 03:39] LABS: Albumin Globulin Ratio 0.5 (0.9-2); Bilirubin,Total 0.9 mg/dl (0.2-1); Globulin 4.5 gm/dl (2.5-4.0); Total Protein 6.8 gm/dl (6.4-8.2); Troponin I 0.111 ng/ml (0-0.045)
[2019-08-19] MEDS: methylPREDNISolone 30 MG in SYRINGE 0 ML IV SCH (06:26)
[2019-08-19 07:13] LABS: Estimated Average Glucose 128 mg/dl; Hemoglobin A1C 6.1 % (4.5-5.6)
[2019-08-19] MEDS ORDERED: PERFLUTREN LIPID MICROSPHERE (DEFINITY) IV ONE (08:21)
[2019-08-19] MEDS ORDERED: ERGOCALCIFEROL 50,000 UNITS CAP PO SCH (09:00)
[2019-08-19] MEDS: FLUTICASONE/SALMETEROL (ADVAIR) 500/50 INH 14 PUFF INH SCH (09:15)
[2019-08-19] MEDS: HEPARIN SOD 5,000 UNIT/0.5 ML VIAL SQ SCH (09:15)
[2019-08-19] MEDS: TIOTROPIUM BROMIDE 5 PUFF/90 MCG INH INH SCH (09:16)
[2019-08-19] MEDS: CHOLECALCIFEROL 1,000 UNITS TAB PO SCH (09:26)
--- NOTE | 2019-08-19 09:30 | Hospitalist Progress Note ---
Date of Service August 19, 2019 Assessment & Plan (1) Pneumonia: 79 yo M PMHx emphysema, CKD stage III, pulmonary HTN, anemia presents for 1 week of worsening shortness of breath and found to be bacteremic with a left sided pneumonia and MERLYN. Pneumonia - On admission pt had increased oxygen demand with a CXR showing evidence of left lung pneumonia. Started at that time on vanc and Zosyn. - BCx initial results show G (-) bacilli, pulmonary adjusted Abx to Rocephin + azithromycin. Will continue to follow BCx for species and sensitivity. - Pt does not have any risk factors for HCAP. - Pt overall feeling better and requiring less oxygen at this time, 5LNC. - Trend CBC. Pt did not have leukocytosis this admission. MERLYN on CKD - Pt found on admission to have an MERLYN with Cr 3.28, baseline 1.3-1.6. - Decreased to 2.98 after 2L fluid repletion, will replete further with LR @120cc/hr. - Pt euvolemic on exam. - Nephrology recommendations include: check urine microscopy, FeNa, Renal US, monitor UO and PRP. Pulmonary emphysema - Pt with chronic emphysema and a 50 pack year smoking history on chronic 3-4L NC at home. Using 5LNC at this time. - CXR 08/18/19: Advanced emphysematous change is again noted. A bleb largely fills the right lung and this is unchanged from prior examinations. - Continue oxygen by nasal cannula and titrate down to baseline as tolerated. - Pulmonary service consulted, recommendations include: Transition the patient to budesonide and Perforomist as well as Spiriva to see if he has a better clinical response. Elevated troponin - Likely due to worsening renal failure and poor clearance. Patient does not have complaints of chest pain. There are noted T wave inversion in inferior leads, anterior leads and lateral leads. Could be a sign of demand ischemia due to acute infection associated with sepsis and tachycardia. - Troponins trending down from 0.147 -> 0.111. - TTE 08/19/19 showed EF 60-65%, mild MR, no wall motion abnormalities. - Continue to monitor for cardiac signs and symptoms. Vitamin D deficiency - Pt receiving supplementation with Vitamin D3 2000IU daily, one dose Vitamin D2 given inpatient. Anemia of chronic disease - Pt's Hgb fluctuates between 9-12 over the last 3 years. Today 10.8 and without signs or symptoms that correlate with active bleeding. Hx of hypokalemia - Pt takes potassium 20meq PO BID at home; on admission had K 5.9 -> 5.2 -> 4.7 today. This elevation likely due to MERLYN and is trending down with fluids. - Holding potassium supplementation. Code Status: FULL CODE FEN/GI: Encourage further PO intake, fluids LR @120cc/hr DVT ppx: Heparin 5000u SQ q12h Dispo: jai/surg (2) Acute on chronic kidney failure: (3) Chronic respiratory failure: (4) Pulmonary emphysema: (5) Elevated troponin: (6) Vitamin D deficiency: (7) Pulmonary hypertension, secondary: (8) Anemia: (9) Hypercholesterolemia: Supervising Physician Co-Signing Physician Notes I personally examined the patient and verified all wilkerson points of history and exam, discussed case, and agree with decision making with Dr Francis. Feeling much better. Breathing better. No fevers chills sweats no rigors Vitals noted, in general he is awake and alert pleasant no distress. HEENT normocephalic atraumatic mucous members moist. Left lung is coarse rhonchi throughout right is extremely quiet. Chest x-ray noted. Sepsis present on admission related to left-sided pneumonia with gram-negative bacteremiacontinue supportive care and antibiotics. He appears to be improving. MERLYN on CKDrelated to dehydration from poor oral intake as well as from septic physiology. IV fluids and follow. Is improving somewhat. Secondary hyperparathyroidism related to vitamin D deficiencyreplace vitamin D, follow periodically. Otherwise as above. Subjective Overnight blood cultures came back positive for gram negative rods. Pt without symptom changes overnight. Feels comfortable on 5L NC without SOB or wheezing. No fevers or chills.Asked nurse to plae a spaulding since he was "peeing a lot". Review of Systems Constitutional: no fever, no chills and no malaise Respiratory: no cough and no dyspnea Cardiovascular: no chest pain, no palpitations and no edema Gastrointestinal: no abdominal pain, no constipation and no diarrhea/loose stools Physical Exam Constitutional: well developed, + thin and + cachectic Respiratory: right lung with diminished breath sounds. left lung with diffuse crackles. Cardiovascular: RRR, no murmur, no edema Gastrointestinal (Abdomen): normal bowel sounds, soft, nontender, no hepatosplenomegaly Skin: no rashes, warm and dry Psychiatric: A+Ox3, euthymic affect Results & Data Vital Signs (Past 12 Hours) Vital Signs Temp Pulse Pulse Pulse Resp BP Pulse Ox 08/19/19 07:31 36.5 C 77 18 117/75 94 08/19/19 07:12 100 H 20 96 08/19/19 03:17 69 21 96 08/19/19 03:00 36.4 C L 106 H 20 121/71 94 08/18/19 23:33 112 H 08/18/19 23:10 36.2 C L 107 H 20 96/61 L 95 08/18/19 22:59 105 H 18 95 08/18/19 22:58 105 H 18 95 Laboratory Results Laboratory Results - last 24 hr 08/18/19 08/18/19 08/18/19 14:35 14:35 14:35 WBC 8.52 RBC 3.82 L Hgb 12.1 L Hct 36.1 L MCV 94.5 MCH 31.7 MCHC 33.5 RDW Std Deviation 51.6 H RDW Coeff of Rupali 15.0 H Plt Count 154 MPV 10.5 H Immature Gran % (Auto) 0.8 Neut % (Auto) 90.1 Lymph % (Auto) 5.3 [place] % (Auto) 3.6 Eos % (Auto) 0.1 Baso % (Auto) 0.1 Immature Gran # (Auto) 0.07 H Neut # (Auto) 7.67 H Lymph # (Auto) 0.45 L [place] # (Auto) 0.31 Eos # (Auto) 0.01 Baso # (Auto) 0.01 PT INR APTT PTT Ratio VBG pH VBG pCO2 VBG pO2 VBG HCO3 VBG O2 Saturation VBG Base Excess Barometric Pressure Sodium 141 Potassium 5.9 H Chloride 109 H Carbon Dioxide 22 Anion Gap 11.0 BUN 79 H Creatinine 3.28 H Est Cr Clr Drug Dosing Not Reportable Est GFR ( Amer) 19.6 Est GFR (Non-Af Amer) 17.0 BUN/Creatinine Ratio 24.1 H Glucose 106 H Estimat Average Glucose Hemoglobin A1c Lactate 2.7 H* Calcium 9.7 Phosphorus 5.9 H Magnesium 2.6 H Total Bilirubin 1.3 H AST 30 ALT 22 Alkaline Phosphatase 115 Troponin I 0.141 H* NT-Pro-B Natriuret Pep 60359 H Total Protein 7.7 Albumin 2.7 L Globulin 5.0 H Albumin/Globulin Ratio 0.5 L Triglycerides Cholesterol LDL Cholesterol, Calc VLDL Cholesterol, Calc HDL Cholesterol Cholesterol/HDL Ratio Lipase 25 L Procalcitonin TSH Nasal Screen MRSA (PCR) Random Vancomycin 08/18/19 08/18/19 08/18/19 14:35 14:35 15:01 WBC RBC Hgb Hct MCV MCH MCHC RDW Std Deviation RDW Coeff of Rupali Plt Count MPV Immature Gran % (Auto) Neut % (Auto) Lymph % (Auto) [place] % (Auto) Eos % (Auto) Baso % (Auto) Immature Gran # (Auto) Neut # (Auto) Lymph # (Auto) [place] # (Auto) Eos # (Auto) Baso # (Auto) PT 10.9 INR 1.1 APTT 34.3 H PTT Ratio 1.3 VBG pH 7.23 L VBG pCO2 50 VBG pO2 20 VBG HCO3 21 VBG O2 Saturation < 60.0 VBG Base Excess -6.8 Barometric Pressure 736.4 Sodium Potassium Chloride Carbon Dioxide Anion Gap BUN Creatinine Est Cr Clr Drug Dosing Est GFR ( Amer) Est GFR (Non-Af Amer) BUN/Creatinine Ratio Glucose Estimat Average Glucose Hemoglobin A1c Lactate Calcium Phosphorus Magnesium Total Bilirubin AST ALT Alkaline Phosphatase Troponin I NT-Pro-B Natriuret Pep Total Protein Albumin Globulin Albumin/Globulin Ratio Triglycerides Cholesterol LDL Cholesterol, Calc VLDL Cholesterol, Calc HDL Cholesterol Cholesterol/HDL Ratio Lipase Procalcitonin 7.40 H TSH Nasal Screen MRSA (PCR) Random Vancomycin 08/18/19 08/18/19 08/18/19 18:52 18:52 18:52 WBC RBC Hgb Hct MCV MCH MCHC RDW Std Deviation RDW Coeff of Rupali Plt Count MPV Immature Gran % (Auto) Neut % (Auto) Lymph % (Auto) [place] % (Auto) Eos % (Auto) Baso % (Auto) Immature Gran # (Auto) Neut # (Auto) Lymph # (Auto) [place] # (Auto) Eos # (Auto) Baso # (Auto) PT INR APTT PTT Ratio VBG pH VBG pCO2 VBG pO2 VBG HCO3 VBG O2 Saturation VBG Base Excess Barometric Pressure Sodium Potassium Chloride Carbon Dioxide Anion Gap BUN Creatinine Est Cr Clr Drug Dosing Est GFR ( Amer) Est GFR (Non-Af Amer) BUN/Creatinine Ratio Glucose Estimat Average Glucose Hemoglobin A1c Lactate 1.8 Calcium Phosphorus Magnesium Total Bilirubin AST ALT Alkaline Phosphatase Troponin I 0.147 H* NT-Pro-B Natriuret Pep 52813 H Total Protein Albumin Globulin Albumin/Globulin Ratio Triglycerides Cholesterol LDL Cholesterol, Calc VLDL Cholesterol, Calc HDL Cholesterol Cholesterol/HDL Ratio Lipase Procalcitonin TSH 0.624 Nasal Screen MRSA (PCR) Random Vancomycin 08/18/19 08/19/19 08/19/19 20:05 00:33 02:34 WBC RBC Hgb Hct MCV MCH MCHC RDW Std Deviation RDW Coeff of Rupali Plt Count MPV Immature Gran % (Auto) Neut % (Auto) Lymph % (Auto) [place] % (Auto) Eos % (Auto) Baso % (Auto) Immature Gran # (Auto) Neut # (Auto) Lymph # (Auto) [place] # (Auto) Eos # (Auto) Baso # (Auto) PT INR APTT PTT Ratio VBG pH VBG pCO2 VBG pO2 VBG HCO3 VBG O2 Saturation VBG Base Excess Barometric Pressure Sodium 145 145 Potassium 5.2 H 4.7 Chloride 111 H 111 H Carbon Dioxide 23 23 Anion Gap 11.0 11.0 BUN 82 H 78 H Creatinine 2.95 H D 2.98 H Est Cr Clr Drug Dosing 20.0 19.8 Est GFR ( Amer) 22.3 22.1 Est GFR (Non-Af Amer) 19.3 19.0 BUN/Creatinine Ratio 27.9 H 26.3 H Glucose 145 H 158 H Estimat Average Glucose Hemoglobin A1c Lactate Calcium 9.3 9.1 Phosphorus Magnesium Total Bilirubin 0.9 AST 23 ALT 20 Alkaline Phosphatase 92 Troponin I 0.111 H* NT-Pro-B Natriuret Pep Total Protein 6.8 Albumin 2.3 L Globulin 4.5 H Albumin/Globulin Ratio 0.5 L Triglycerides 75 Cholesterol 62 LDL Cholesterol, Calc 31 VLDL Cholesterol, Calc 15 HDL Cholesterol 16 Cholesterol/HDL Ratio 4 Lipase Procalcitonin TSH Nasal Screen MRSA (PCR) Negative Random Vancomycin 08/19/19 08/19/19 08/19/19 02:34 02:34 02:34 WBC 8.16 RBC 3.50 L Hgb 10.8 L Hct 33.1 L MCV 94.6 MCH 30.9 MCHC 32.6 RDW Std Deviation 52.3 H RDW Coeff of Rupali 15.2 H Plt Count 139 MPV 11.0 H Immature Gran % (Auto) 1.0 Neut % (Auto) 92.0 Lymph % (Auto) 4.2 [place] % (Auto) 2.8 Eos % (Auto) 0.0 Baso % (Auto) 0.0 Immature Gran # (Auto) 0.08 H Neut # (Auto) 7.51 H Lymph # (Auto) 0.34 L [place] # (Auto) 0.23 Eos # (Auto) 0.00 Baso # (Auto) 0.00 PT 10.9 INR 1.1 APTT PTT Ratio VBG pH VBG pCO2 VBG pO2 VBG HCO3 VBG O2 Saturation VBG Base Excess Barometric Pressure Sodium Potassium Chloride Carbon Dioxide Anion Gap BUN Creatinine Est Cr Clr Drug Dosing Est GFR ( Amer) Est GFR (Non-Af Amer) BUN/Creatinine Ratio Glucose Estimat Average Glucose 128 Hemoglobin A1c 6.1 H Lactate Calcium Phosphorus Magnesium Total Bilirubin AST ALT Alkaline Phosphatase Troponin I NT-Pro-B Natriuret Pep Total Protein Albumin Globulin Albumin/Globulin Ratio Triglycerides Cholesterol LDL Cholesterol, Calc VLDL Cholesterol, Calc HDL Cholesterol Cholesterol/HDL Ratio Lipase Procalcitonin TSH Nasal Screen MRSA (PCR) Random Vancomycin 08/19/19 02:34 WBC RBC Hgb Hct MCV MCH MCHC RDW Std Deviation RDW Coeff of Rupali Plt Count MPV Immature Gran % (Auto) Neut % (Auto) Lymph % (Auto) [place] % (Auto) Eos % (Auto) Baso % (Auto) Immature Gran # (Auto) Neut # (Auto) Lymph # (Auto) [place] # (Auto) Eos # (Auto) Baso # (Auto) PT INR APTT PTT Ratio VBG pH VBG pCO2 VBG pO2 VBG HCO3 VBG O2 Saturation VBG Base Excess Barometric Pressure Sodium Potassium Chloride Carbon Dioxide Anion Gap BUN Creatinine Est Cr Clr Drug Dosing Est GFR ( Amer) Est GFR (Non-Af Amer) BUN/Creatinine Ratio Glucose Estimat Average Glucose Hemoglobin A1c Lactate Calcium Phosphorus Magnesium Total Bilirubin AST ALT Alkaline Phosphatase Troponin I NT-Pro-B Natriuret Pep Total Protein Albumin Globulin Albumin/Globulin Ratio Triglycerides Cholesterol LDL Cholesterol, Calc VLDL Cholesterol, Calc HDL Cholesterol Cholesterol/HDL Ratio Lipase Procalcitonin TSH Nasal Screen MRSA (PCR) Random Vancomycin 14.4 Diagnostic Findings CXR 08/18/19: 1. Airspace consolidation is seen in the left mid to lower lung and there is a small left pleural effusion. The appearance is typical for pneumonia/aspiration pneumonitis. Clinical correlation will be required and radiographic follow-up to resolution is recommended. 2. Advanced emphysematous change is again noted. A bleb largely fills the right lung and this is unchanged from prior examinations. Medications Administered Current Medications Acetaminophen (Tylenol) 650 mg PO Q4H PRN PRN Reason: Pain or Fever Stop: 09/17/19 18:11 Al Hydrox/Mg Hydrox/Simethicone (Maalox) 15 ml PO Q4H PRN PRN Reason: Dyspepsia Stop: 09/17/19 18:11 Albuterol (Duoneb) 3 ml NEB Q4R SAYRA Stop: 09/17/19 18:59 Last Admin: 08/19/19 10:58 Dose: 3 ml Documented by: Albuterol (Ventolin Hfa) 2 puffs INH Q4R PRN PRN Reason: SOB/WHEEZING Stop: 09/17/19 18:23 Azithromycin (Zithromax) 250 mg PO QAM SAYRA Stop: 08/26/19 10:59 Last Admin: 08/19/19 11:50 Dose: 250 mg Documented by: Budesonide (Pulmicort Respules) 0.5 mg NEB BIDR SAYRA Stop: 09/18/19 18:59 Ergocalciferol (Vitamin D2) 50,000 units PO Sa@0900 SAYRA Stop: 09/18/19 08:59 Last Admin: 08/19/19 09:25 Dose: 50,000 units Documented by: Formoterol Fumarate (Perforomist) 20 mcg NEB BIDR SAYRA Stop: 09/18/19 10:59 Heparin Sodium (Porcine) (Heparin Sodium (Porcine)) 5,000 units SQ Q12 SAYRA Stop: 09/17/19 20:59 Last Admin: 08/19/19 09:15 Dose: 5,000 units Documented by: Ceftriaxone Sodium 1,000 mg/ (Dextrose) 50 mls @ 100 mls/hr IV Q24H SAYRA; Protocol Stop: 08/26/19 09:59 Last Infusion: 08/19/19 11:11 Dose: Infused Documented by: Lactated Ringer's (Lr) 1,000 mls @ 120 mls/hr IV .[id number] SAYRA Stop: 09/18/19 10:29 Last Admin: 08/19/19 10:41 Dose: 120 mls/hr Documented by: Magnesium Hydroxide (Milk Of Magnesia) 30 ml PO Q12H PRN PRN Reason: Constipation Stop: 09/17/19 18:11 Polyethylene Glycol (Miralax Powder Packet) 17 gm PO DAILY PRN PRN Reason: Constipation Stop: 09/17/19 18:11 Tiotropium [place] (Spiriva) 1 puffs INH DAILY [facility] Stop: 09/17/19 18:59 Last Admin: 08/19/19 09:16 Dose: 1 puffs Documented by: Vitamin D (Vitamin D3) 2,000 units PO QAM [facility] Stop: 09/18/19 08:59 Last Admin: 08/19/19 09:26 Dose: 2,000 units Documented by: Resident Activity Tracking Resident Involvement: Resident Care Provided Care Provided: Adult Hospital Medicine (1) Pneumonia Laterality: unspecified laterality Lung location: unspecified part of lung Pneumonia type: due to unspecified organism Qualified Code(s): J18.9 - Pneumonia, unspecified organism
--- NOTE | 2019-08-19 09:51 | Pulmonary Consultation ---
Date of Consultation August 19, 2019 Assessment & Plan (1) Pneumonia: Impression: 79-year-old male with end-stage bullous emphysema now admitted with pneumonia and progressive hypoxemic respiratory failure acute on chronic. Recommendations: 1. Pneumonia: We de-escalate therapy to Rocephin and azithromycin. Can check procalcitonin in 24 to 48 hours to ensure its decreasing. He will need a follow-up chest x-ray in 2 to 4 weeks 2. COPD: We will transition the patient to budesonide and Perforomist as well as Spiriva to see if he has a better clinical response. Do not think the marcela ent is overtly bronchospastic currently and will discontinue the methylprednisolone. Given his significant bullae, could consider evaluation for bullectomy as an outpatient however he would need to be much more clinically stable and he is currently and given his advanced age, and medical comorbidities he may not be a candidate. 3. Acute on chronic hypoxemic respiratory failure: Continue oxygen titrated to keep saturations at or above 80%. 4. Cachexia: Nutritional consult recommended. Increase caloric intake. We will continue to follow with you. Feel free to contact us with questions or concerns. Laterality: unspecified laterality Lung location: unspecified part of lung Pneumonia type: due to unspecified organism Qualified Code(s): J18.9 - Pneumonia, unspecified organism (2) Acute on chronic respiratory failure: Respiratory failure complication: hypoxia Qualified Code(s): J96.21 - Acute and chronic respiratory failure with hypoxia (3) Pulmonary emphysema: History of Present Illness Attending Physician: Michael Green DO History of Present Illness Asked by hospitalist to evaluate this patient with end-stage obstructive lung disease and pneumonia. History is obtained from review the electronic medical record as well as interview the patient at bedside. The patient is a 79-year-old male with very advanced bullous emphysema. He is chronically on oxygen therapy at home. He has been maintained on a regiment of Advair and Spiriva. He has been followed by a variety of retail pharmacy merchandiser in the past including Dr. Del Castillo and most recently Dr. hughes. He has an appointment with Dr. hughes set up for next month. He presented to the emergency room with complaints of feeling poorly. His complaints included dyspnea. He did not really have much in the way of productive cough and no significant phlegm production or hemoptysis. Quit smoking 15 years ago but has never [id number] history. Chest x-ray in the emergency room demonstrated severe bullous changes bilaterally with increasing opacity within the left hemithorax concerning for an infectious etiology. Procalcitonin was elevated but his white count was normal. He was initiated on antibiotics and admitted to the floor. He is done reasonably well overnight. Allergies Allergy/AdvReac Type Severity Reaction Status Date / Time No Known Allergies Allergy Unknown Verified 08/18/19 16:18 Home Medications Home Medications Medication Instructions Recorded Confirmed Type Oxygen Home #1 ea 06/13/19 06/13/19 History albuterol sulfate 90 mcg/actuation 2 puffs INHALATION Q4H PRN #3 gm 06/13/19 08/18/19 History aerosol inhaler aspirin [Aspir-81] 81 mg PO Q OTHER DAY 08/18/19 08/18/19 History atorvastatin [Lipitor] 80 mg PO QPM 08/18/19 08/18/19 History fluticasone propion-salmeterol 1 ea INHALATION BID 08/18/19 08/18/19 History [Advair Diskus] furosemide [Lasix] 20 mg PO DAILY 08/18/19 08/18/19 History metoprolol succinate [Toprol XL] 25 mg PO DAILY 08/18/19 08/18/19 History potassium chloride [Klor-Con M20] 20 meq PO BID 08/18/19 08/18/19 History tiotropium bromide [Spiriva with 1 cap INHALATION DAILY 08/18/19 08/18/19 History HandiHaler] Patient History Medical History Anemia (Acute) Cardiac failure (Acute) Chronic kidney disease, stage 3 (Acute) Chronic respiratory failure (Acute) COPD (chronic obstructive pulmonary disease) Elevated prostate specific antigen (PSA) (Acute) Hypercholesterolemia (Acute) Hypokalemia (Acute) Leukocytosis (Acute) Pulmonary emphysema (Acute) Pulmonary hypertension, secondary (Acute) Vitamin D deficiency (Acute) Family History Other No significant family history Social History Preferred Language: Citizen Of [place] Communication Ability: Effective Disintegrator Required: No Beliefs That Will Affect Care: None Current Living Situation: Alone Other Information That Helps Us Care for You: No Feels Safe at Home: Yes Safety Concerns: Feels Safe At This Time Smoking Status: Former smoker Do You Dip or Chew Tobacco: Yes (1 can of snuff /week.) ; Smoking End Date: 15 years ago. ; Second Hand Exposure: No ; Tobacco Cessation Education Requested by Patient: No Hx Alcohol Use: No Hx Substance Use: No Review of Systems Review of Systems: 12 point review of systems completed with the patient. P lease refer to admission H&P. I have no additions or deletions Physical Exam Constitutional: + thin and + cachectic; not in distress ENMT: external ear and nose normal, oropharynx normal Neck: trachea midline, no thyromegaly Respiratory: Diminished breath sounds bilaterally without wheezing. Few crackles in the left thorax anteriorly Cardiovascular: RRR, no murmur, no edema Gastrointestinal (Abdomen): normal bowel sounds, soft, nontender, no hepatosplenomegaly Musculoskeletal: Muscle wasting noted Skin: Thin skin with several ecchymoses Neurologic: Nonfocal exam Psychiatric: A+Ox3, euthymic affect Results & Data Vital Signs (Past 12 Hours) Vital Signs Temp Pulse Pulse Pulse Resp BP Pulse Ox 08/19/19 07:31 36.5 C 77 18 117/75 94 08/19/19 07:12 100 H 20 96 08/19/19 03:17 69 21 96 08/19/19 03:00 36.4 C L 106 H 20 121/71 94 08/18/19 23:33 112 H 08/18/19 23:10 36.2 C L 107 H 20 96/61 L 95 08/18/19 22:59 105 H 18 95 08/18/19 22:58 105 H 18 95 Laboratory Results 08/19/19 02:34 08/19/19 02:34 Microbiology 08/18/19 15:01 Blood Aerobic Blood Culture - Preliminary Gram negative bacilli 08/18/19 14:35 Blood Aerobic Blood Culture - Preliminary Gram negative bacilli Diagnostic Findings CT of the chest from 08/18/2019 was independently reviewed. Severe bullous emphysematous changes are noted with massive bullae bilaterally. Increasing airspace opacity identified in the left lung. No recent comparison films. PG Care Time/CCT Total # of Minutes Spent Total Time Spent with Patient: Total time spent is greater than 50% in co ordination of care (as documented) at patient's floor/unit and/or counseling patient:
[2019-08-19] MEDS ORDERED: LACTATED RINGER'S 1,000 ML IV SCH (10:30)
[2019-08-19] MEDS: cefTRIAXone SODIUM 1,000 MG in DEXTROSE 5% 50 ML IV SCH (10:41)
--- NOTE | 2019-08-19 11:16 | Nephrology Consultation ---
Date of Consultation August 19, 2019 Assessment & Plan (1) Acute kidney injury: -- MERLYN due to intravascular volume contraction, PNA -- Will check urine microscopy, FeNa -- Renal US -- Will order gentle hydration -- Monitor UO, PRP (2) Chronic kidney disease, stage 3: -- Baseline Cr 1.3 - 1.6 (3) Pneumonia: -- Blood cultures w/ G- bacilli -- On Ceftriaxone and Azithromycin therapy History of Present Illness Reason for Consultation: MERLYN/CKD Attending Physician: Michael Green DO History of Present Illness Mr. Jim is a 79 year old white male who is seen at the request of Dr. Green for evaluation of MERLYN/CKD. Medical records in the EMR were reviewed today and are summarized as follows: Mr. Jim has CKD w/ baseline Cr 1.3 - 1.6. His medical history is significant for COPD, pulmonary HTN, CHF, AAA s/p E MARAH and chronic anemia (refused outpatient colonoscopy). Mr. Jim was admitted for evaluation of dyspnea. CXR revealed LLL infiltrate. Cr was elevated at 3.2. He was treated w/ BiPAP, steroids, Vancomycin and Zosyn therapy. Mr. Jim was clinically volume contracted and given gentle hydration. Cr improved to 2.98. Allergies Allergy/AdvReac Type Severity Reaction Status Date / Time No Known Allergies Allergy Unknown Verified 08/18/19 16:18 Home Medications Home Medications Medication Instructions Recorded Confirmed Type Oxygen Home #1 ea 06/13/19 06/13/19 History albuterol sulfate 90 mcg/actuation 2 puffs INHALATION Q4H PRN #3 gm 06/13/19 08/18/19 History aerosol inhaler aspirin [Aspir-81] 81 mg PO Q OTHER DAY 08/18/19 08/18/19 History atorvastatin [Lipitor] 80 mg PO QPM 08/18/19 08/18/19 History fluticasone propion-salmeterol 1 ea INHALATION BID 08/18/19 08/18/19 History [Advair Diskus] furosemide [Lasix] 20 mg PO DAILY 08/18/19 08/18/19 History metoprolol succinate [Toprol XL] 25 mg PO DAILY 08/18/19 08/18/19 History potassium chloride [Klor-Con M20] 20 meq PO BID 08/18/19 08/18/19 History tiotropium bromide [Spiriva with 1 cap INHALATION DAILY 08/18/19 08/18/19 History HandiHaler] Patient History Medical History Anemia (Acute) Cardiac failure (Acute) Chronic kidney disease, stage 3 (Acute) Chronic respiratory failure (Acute) COPD (chronic obstructive pulmonary disease) Elevated prostate specific antigen (PSA) (Acute) Hypercholesterolemia (Acute) Hypokalemia (Acute) Leukocytosis (Acute) Pulmonary emphysema (Acute) Pulmonary hypertension, secondary (Acute) Vitamin D deficiency (Acute) Family History Other No significant family history Social History Preferred Language: [place] Communication Ability: Effective Ore Charger Required: No Beliefs That Will Affect Care: None Current Living Situation: Alone Other Information That Helps Us Care for You: No Feels Safe at Home: Yes Safety Concerns: Feels Safe At This Time Smoking Status: Former smoker Do You Dip or Chew Tobacco: Yes (1 can of snuff /week.) ; Smoking End Date: 15 years ago. ; Second Hand Exposure: No ; Tobacco Cessation Education Requested by Patient: No Hx Alcohol Use: No Hx Substance Use: No Review of Systems Constitutional: no fever and no weakness Eyes: no worsening vision and no problem reported Ear, Nose, Mouth, Throat: no problem reported Respiratory: + cough and + dyspnea Cardiovascular: no chest pain, no palpitations and no edema Gastrointestinal: no abdominal pain, no nausea, no vomiting and no diarrhea/loose stools Genitourinary: no dysuria, no urinary hesitancy and no hematuria Musculoskeletal: no back pain Integumentary: no rash Neurologic: no falls Physical Exam Constitutional: + cachectic; not in distress Eyes: PERRL, conjunctivae normal, anicteric sclerae ENMT: external ear and nose normal, oropharynx normal Neck: trachea midline, no thyromegaly Respiratory: + prolonged expiratory phase Auscultation: + crackles and + wheezes Cardiovascular: RRR, no murmur, no edema Gastrointestinal (Abdomen): normal bowel sounds, soft, nontender, no hepatosplenomegaly Musculoskeletal: Extremities: no cyanosis Skin: no rashes, warm and dry Neurologic: awake; not confused Results & Data Vital Signs (Past 12 Hours) Vital Signs Temp Pulse Pulse Resp BP Pulse Ox 08/19/19 10:58 80 16 93 08/19/19 08:00 102 H 08/19/19 07:31 36.5 C 77 18 117/75 94 08/19/19 07:12 100 H 20 96 08/19/19 03:17 69 21 96 08/19/19 03:00 36.4 C L 106 H 20 121/71 94 08/18/19 23:33 112 H Laboratory Results Laboratory Tests 08/19/19 08/19/19 02:34 02:34 WBC 8.16 Hgb 10.8 L Hct 33.1 L Plt Count 139 Sodium 145 Potassium 4.7 Chloride 111 H Carbon Dioxide 23 BUN 78 H Creatinine 2.98 H Glucose 158 H PG Care Time/CCT Total # of Minutes Spent Total Time Spent with Patient: Total time spent is greater than 50% in coordination of care (as documented) at patient's floor/unit and/or counseling patient: (1) Pneumonia Laterality: unspecified laterality Lung location: unspecified part of lung Pneumonia type: due to unspecified organism Qualified Code(s): J18.9 - Pneumonia, unspecified organism
[2019-08-19] MEDS: AZITHROMYCIN 250 MG TAB PO SCH (11:50)
[2019-08-19] MEDS: FORMOTEROL 20 MCG/2 ML VIAL NEB SCH ×2 (14:49→19:05)
[2019-08-19 14:53] LABS: Appearance Urine Turbid (Clear); Bacteria Urine Automated Negative (Negative); Bilirubin Urine Negative (Negative); Blood Urine 3+ (Negative); Color Urine Yellow; Epithelial Cell Urine Auto >30 /lpf (0-5); Glucose Urine UA Negative (Negative); Ketones Urine Negative (Negative); Leukocyte Esterase Urine Trace (Negative); Nitrite Urine Negative (Negative); Protein Urine 1+ (Negative); Urobilinogen Urine Negative (Negative)
[2019-08-19 15:09] LABS: RBC Urine Automated >30 /hpf (0-4)
--- NOTE | 2019-08-19 16:30 | Billing Data ---
Coding Level of Care Code 45624 Subseq Hosp Care Lvl 3
[2019-08-19] MEDS ORDERED: METOPROLOL TARTRATE 1 MG/ML VIAL IV STA ×2 (16:47→17:00)
[2019-08-19] MEDS ORDERED: SODIUM CHLORIDE 0.9% 1000ML 1,000 ML IV ONE (17:12)
[2019-08-19] MEDS: dilTIAZem HCL 125 MG in DEXTROSE 5% 100 ML IV SCH (17:47)
[2019-08-19] MEDS ORDERED: AMIODARONE / D5W 150 MG/100 ML BAG IV STA (18:32)
[2019-08-19] MEDS ORDERED: AMIODARONE IV BOLUS / DRIP IV STA (18:32)
[2019-08-19] MEDS ORDERED: Heparin IV Low Dose *NO* Bolus IV ONE (18:33)
--- NOTE | 2019-08-19 18:55 | Billing Data ---
Coding Level of Care Code Critical Care 1st 30-74 mins
--- NOTE | 2019-08-19 19:01 | Cardiology Consultation ---
Date of Consultation August 19, 2019 Assessment & Plan (1) Atrial fibrillation: He does not have a history of atrial fibrillation to my knowledge, he does not recognize it and he is not on an anticoagulant as an outpatient. He is however asymptomatic but the rate is very fast. The arrhythmia could be due to his acute state currently but is possible he has asymptomatic paroxysmal atrial fibrillation in the past as well. At this point I would try to control the rate and perhaps convert the rhythm, since he is only been in it for about 3 hours in a sustained manner and he does not tolerate rate controlling medications due to hypotension it would be reasonable to use amiodarone to try to convert the rhythm and that may also help control rate if the rhythm does not convert. Digoxin can be used, I would give him a low loading dose if he needs further rate control (no more than 0.5 mg) and then not use a daily dose but monitor levels. Amiodarone will tend to raise digoxin levels and I suspect his volume of distribution will be very low due to his size. Over the long run he will probably need anticoagulation, now if possible. (2) Elevated troponin: He did have elevated troponin on admission, there is not a particular trend and the levels were relatively low although abnormal. This is likely due to demand ischemia due to his lung disease, to my knowledge he does not have coronary disease although he could have underlying coronary disease. I do not know if it is necessary to trend troponins again, I would not be surprised if they were somewhat elevated with his rapid heart rates. History of Present Illness Attending Physician: Michael Green DO History of Present Illness This is a 79-year-old male followed by Dr. Parikh at [place] with a history of chronic kidney disease, respiratory failure with COPD, congestive heart failure and abdominal aortic aneurysm. He presented to the emergency room on August 18, 2019 with shortness of breath and was in acute respiratory failure. He did have evidence of sepsis, was admitted for management of this. He did have an echocardiogram done August 19, 2019 which showed normal left ventricular size with mild left ventricular hypertrophy and normal systolic function. His right ventricular was dilated and hypocontractile although was not well-visualized. This afternoon he developed atrial fibrillation with a rapid ventricular response. This occurred at around 4 PM (although on review of telemetry he may have had short bursts of atrial fibrillation before that). He was given intravenous metoprolol with some drop in blood pressure, diltiazem was also tried as well after some fluid. His heart rate remains fast. 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 His only complaint is his breathing. Allergies Allergy/AdvReac Type Severity Reaction Status Date / Time No Known Allergies Allergy Unknown Verified 08/18/19 16:18 Home Medications Home Medications Medication Instructions Recorded Confirmed Type Oxygen Home #1 ea 06/13/19 06/13/19 History albuterol sulfate 90 mcg/actuation 2 puffs INHALATION Q4H PRN #3 gm 06/13/19 08/18/19 History aerosol inhaler aspirin [Aspir-81] 81 mg PO Q OTHER DAY 08/18/19 08/18/19 History atorvastatin [Lipitor] 80 mg PO QPM 08/18/19 08/18/19 History fluticasone propion-salmeterol 1 ea INHALATION BID 08/18/19 08/18/19 History [Advair Diskus] furosemide [Lasix] 20 mg PO DAILY 08/18/19 08/18/19 History metoprolol succinate [Toprol XL] 25 mg PO DAILY 08/18/19 08/18/19 History potassium chloride [Klor-Con M20] 20 meq PO BID 08/18/19 08/18/19 History tiotropium bromide [Spiriva with 1 cap INHALATION DAILY 08/18/19 08/18/19 History HandiHaler] Patient History Medical History Acute kidney injury Anemia (Acute) Cardiac failure (Acute) Chronic kidney disease, stage 3 (Acute) Chronic respiratory failure (Acute) COPD (chronic obstructive pulmonary disease) Hypercholesterolemia (Acute) Leukocytosis (Acute) Pulmonary emphysema (Acute) Pulmonary hypertension, secondary (Acute) Vitamin D deficiency (Acute) Family History Other No significant family history Social History Preferred Language: Citizen Of [place] Communication Ability: Effective Senior Consultant Required: No Beliefs That Will Affect Care: None Current Living Situation: Alone Other Information That Helps Us Care for You: No Feels Safe at Home: Yes Safety Concerns: Feels Safe At This Time Smoking Status: Former smoker Do You Dip or Chew Tobacco: Yes (1 can of snuff /week.) ; Smoking End Date: 15 years ago. ; Second Hand Exposure: No ; Tobacco Cessation Education Requested by Patient: No Hx Alcohol Use: No Hx Substance Use: No Review of Systems Review of Systems: All systems reviewed & are unremarkable except as noted in HPI & below Physical Exam Physical Exam: Constitutional: Alert, cooperative and in no distress. HEENT: Unremarkable Neck: No jugular venous distention, carotid pulses are irregular and rapid but otherwise normal and equal bilaterally without bruits. Pulmonary: Clear to auscultation bilaterally but with diminished breath sounds. Cardiac: Irregular rapid rhythm with no murmur, gallop or rub. Abdomen: Soft, nontender with normal bowel sounds. Extremities: No edema. Distal pulses intact. Neurologic: No focal findings. Gait is steady. Skin: No rash, ecchymoses or petechiae. Results & Data Vital Signs (Past 12 Hours) Vital Signs Temp Pulse Pulse Pulse Resp BP BP 08/19/19 18:34 154 H 24 08/19/19 18:12 150 H 08/19/19 18:00 160 H 08/19/19 17:49 145 H 08/19/19 17:28 156 H 92/49 L 08/19/19 17:15 170 H 80/50 L 08/19/19 16:54 170 H 108/64 08/19/19 16:52 179 H 08/19/19 16:40 160 H 24 08/19/19 15:47 107 H 16 08/19/19 15:43 36.4 C L 101 H 20 08/19/19 11:44 36.6 C 91 H 18 99/64 L 08/19/19 10:58 80 16 08/19/19 08:00 102 H 08/19/19 07:31 36.5 C 77 18 117/75 08/19/19 07:12 100 H 20 BP Pulse Ox 08/19/19 18:34 96/53 L 87 L 08/19/19 18:12 95/57 L 08/19/19 18:00 102/64 08/19/19 17:49 94/59 L 08/19/19 17:28 08/19/19 17:15 08/19/19 16:54 08/19/19 16:52 108/67 08/19/19 16:40 124/77 08/19/19 15:47 94 08/19/19 15:43 126/82 95 08/19/19 11:44 96 08/19/19 10:58 93 08/19/19 08:00 08/19/19 07:31 94 08/19/19 07:12 96 Laboratory Results Abnormal lab results 08/18/19 08/18/19 08/18/19 Range/Units 14:35 14:35 18:52 RBC (4.7-6.1) M/uL Hgb (14.0-18.0) g/dL Hct (42-52) % RDW Std Deviation (36.4-46.3) fL RDW Coeff of Rupali (11.5-14.5) % MPV (7.4-10.4) fL Immature Gran # (Auto) (0.00-0.02) K/uL Neut # (Auto) (1.4-6.5) K/uL Lymph # (Auto) (1.2-3.4) K/uL APTT 34.3 H (21.0-31.0) Seconds Potassium (3.5-5.1) mmol/L Chloride (98-107) mmol/L BUN (7-18) mg/dl Creatinine (0.6-1.4) mg/dl BUN/Creatinine Ratio (10-20) Glucose (70-99) mg/dl Hemoglobin A1c (4.5-5.6) % Troponin I (0-0.045) ng/ml NT-Pro-B Natriuret Pep 53425 H (0-1800) pg/ml Albumin (3.4-5.0) gm/dl Globulin (2.5-4.0) gm/dl Albumin/Globulin Ratio (0.9-2) Procalcitonin 7.40 H (0-0.5) ng/ml Urine Appearance (Clear) Urine Protein (Negative) Urine Blood (Negative) Ur Leukocyte Esterase (Negative) Urine RBC (Auto) (0-4) /hpf U Epithel Cells (Auto) (0-5) /lpf Granular Casts (0) /lpf 08/18/19 08/19/19 08/19/19 Range/Units 18:52 00:33 02:34 RBC (4.7-6.1) M/uL Hgb (14.0-18.0) g/dL Hct (42-52) % RDW Std Deviation (36.4-46.3) fL RDW Coeff of Rupali (11.5-14.5) % MPV (7.4-10.4) fL Immature Gran # (Auto) (0.00-0.02) K/uL Neut # (Auto) (1.4-6.5) K/uL Lymph # (Auto) (1.2-3.4) K/uL APTT (21.0-31.0) Seconds Potassium 5.2 H (3.5-5.1) mmol/L Chloride 111 H 111 H (98-107) mmol/L BUN 82 H 78 H (7-18) mg/dl Creatinine 2.95 H D 2.98 H (0.6-1.4) mg/dl BUN/Creatinine Ratio 27.9 H 26.3 H (10-20) Glucose 145 H 158 H (70-99) mg/dl Hemoglobin A1c (4.5-5.6) % Troponin I 0.147 H* 0.111 H* (0-0.045) ng/ml NT-Pro-B Natriuret Pep (0-1800) pg/ml Albumin 2.3 L (3.4-5.0) gm/dl Globulin 4.5 H (2.5-4.0) gm/dl Albumin/Globulin Ratio 0.5 L (0.9-2) Procalcitonin (0-0.5) ng/ml Urine Appearance (Clear) Urine Protein (Negative) Urine Blood (Negative) Ur Leukocyte Esterase (Negative) Urine RBC (Auto) (0-4) /hpf U Epithel Cells (Auto) (0-5) /lpf Granular Casts (0) /lpf 08/19/19 08/19/19 08/19/19 Range/Units 02:34 02:34 Unknown RBC 3.50 L (4.7-6.1) M/uL Hgb 10.8 L (14.0-18.0) g/dL Hct 33.1 L (42-52) % RDW Std Deviation 52.3 H (36.4-46.3) fL RDW Coeff of Rupali 15.2 H (11.5-14.5) % MPV 11.0 H (7.4-10.4) fL Immature Gran # (Auto) 0.08 H (0.00-0.02) K/uL Neut # (Auto) 7.51 H (1.4-6.5) K/uL Lymph # (Auto) 0.34 L (1.2-3.4) K/uL APTT (21.0-31.0) Seconds Potassium (3.5-5.1) mmol/L Chloride (98-107) mmol/L BUN (7-18) mg/dl Creatinine (0.6-1.4) mg/dl BUN/Creatinine Ratio (10-20) Glucose (70-99) mg/dl Hemoglobin A1c 6.1 H (4.5-5.6) % Troponin I (0-0.045) ng/ml NT-Pro-B Natriuret Pep (0-1800) pg/ml Albumin (3.4-5.0) gm/dl Globulin (2.5-4.0) gm/dl Albumin/Globulin Ratio (0.9-2) Procalcitonin (0-0.5) ng/ml Urine Appearance Turbid A (Clear) Urine Protein 1+ H (Negative) Urine Blood 3+ H (Negative) Ur Leukocyte Esterase Trace H (Negative) Urine RBC (Auto) >30 H (0-4) /hpf U Epithel Cells (Auto) >30 H (0-5) /lpf Granular Casts 5-10 H (0) /lpf Diagnostic Findings His presenting electrocardiogram shows sinus tachycardia at 133 bpm with low voltage and some anterior T wave abnormalities. This was repeated several hours later and is similar at a slightly slower heart rate. Telemetry: Initially sinus rhythm with a sinus arrhythmia and some sinus tachycardia, periods of rapid atrial fibrillation or atrial tachycardia until around 4 PM when he converted to a sustained atrial fibrillation with a rapid heart rate. PG Care Time/CCT Total # of Minutes Spent Total Time Spent with Patient: Total time spent is greater than 50% in coordination of care (as documented) at patient's floor/unit and/or counseling patient:
[2019-08-19] MEDS: BUDESONIDE 0.5 MG/2 ML VIAL (PULMICORT) NEB SCH (19:05)
[2019-08-19] MEDS: AMIODARONE / D5W 360 MG/200 ML BAG IV SCH (19:29)
[2019-08-19 19:59] LABS: Partial Thromboplastin Ratio 1.7
[2019-08-19 20:01] LABS: Partial Thromboplastin Time 46.8 Seconds (21.0-31.0)
[2019-08-19] MEDS: HEPARIN SODIUM/DEXTROSE 25,000 UNITS/500 ML BAG IV SCH (20:10)
[2019-08-20] MEDS: AMIODARONE / D5W 360 MG/200 ML BAG IV SCH ×4 (00:40→23:22)
[2019-08-20 02:24] LABS: Basophils # (auto) 0.01 K/uL (0-0.2); Basophils % (auto) 0.1 %; Eosinophils # (auto) 0.01 K/uL (0-0.5); Eosinophils % (auto) 0.1 %; Hematocrit (blood only) 29.1 % (42-52); Hemoglobin 9.6 g/dL (14.0-18.0); Immature Granulocytes # (auto) 0.14 K/uL (0.00-0.02); Immature Granulocytes % (auto) 1.3 %; Lymphocytes # (auto) 0.48 K/uL (1.2-3.4); Lymphocytes % (auto) 4.6 %; Mean Corpuscular Hemoglobin 31.5 pg (25-34); Mean Corpuscular Volume 95.4 fL (80-100); Mean Platelet Volume 10.3 fL (7.4-10.4); Monocytes # (auto) 0.45 K/uL (0.11-0.59); Monocytes % (auto) 4.3 %; Neutrophils # (auto) 9.37 K/uL (1.4-6.5); Neutrophils % (auto) 89.6 %; Nucleated RBC # (auto) 0.02 K/uL (0-0); Nucleated RBC % (auto) 0.2 %; Platelet Count 124 K/uL (130-400); RDW Coefficient of Variation 15.3 % (11.5-14.5); RDW Standard Deviation 53.1 fL (36.4-46.3); Red Blood Count 3.05 M/uL (4.7-6.1); White Blood Count 10.46 K/uL (4.8-10.8)
[2019-08-20 02:43] LABS: Partial Thromboplastin Ratio 4.3
[2019-08-20 02:48] LABS: Partial Thromboplastin Time 115.7 Seconds (21.0-31.0)
[2019-08-20 02:56] LABS: BUN Creatinine Ratio 30.3 (10-20); Calcium 9.1 mg/dl (8.5-10.1); Est GFR (African American) 27.3; Est GFR (Non-African American) 23.5; Potassium 3.8 mmol/L (3.5-5.1)
[2019-08-20] MEDS: ALBUT/IPRATROP 3MG/0.5MG NEB 3 ML VIAL NEB SCH ×6 (03:07→22:09)
--- NOTE | 2019-08-20 06:11 | Ultrasound Report ---
EXAMINATION: RENAL ULTRASOUND CLINICAL HISTORY: Acute renal insufficiency COMPARISON STUDY: CT scan dated 06/20/2015 FINDINGS: The right kidney measures 9.8 cm. The left kidney measures 9 cm. There is no evidence of h ydronephrosis. There is bilateral renal cortical thinning. There is mild increase in renal cortical echogenicity There is an indwelling Velez catheter. The bladder was decompressed. Neither ureteral jet was visuali zed. Incidental note is made of cholelithiasis. IMPRESSION : 1. Bilateral renal cortical thinning 2. No evidence of hydronephrosis 3. Cholelithiasis Electronically signed by: Puneet Hameed M.D. 08/20/2019 6:10 AM
[2019-08-20] MEDS: FORMOTEROL 20 MCG/2 ML VIAL NEB SCH ×2 (07:10→18:55)
[2019-08-20] MEDS: BUDESONIDE 0.5 MG/2 ML VIAL (PULMICORT) NEB SCH ×2 (07:10→18:55)
--- NOTE | 2019-08-20 07:12 | Hospitalist Progress Note ---
Date of Service August 20, 2019 Assessment & Plan (1) Pneumonia: 79 yo M PMHx emphysema, CKD stage III, pulmonary HTN, anemia presents for 1 week of worsening shortness of breath and found to be bacteremic with a left sided pneumonia and MERLYN, with new-onset AFib with RVR overnight. Pneumonia - On admission pt had increased oxygen demand with a CXR showing evidence of left lung pneumonia. Started at that time on vanc and Zosyn. - BCx initial results show G (-) bacilli, pulmonary adjusted Abx to Rocephin + azithromycin. Will continue to follow BCx for species and sensitivity. - Pt does not have any risk factors for HCAP. - Pt overall feeling the same as yesterday but is increased oxygen demand 6LNC likely due to AFib last night. Will decrease oxygen as pt can tolerate. - Trend CBC. Pt did not have leukocytosis this admission. - Flutter valve q4h to help expectoration of mucus. Incentive spirometer to maintain good movement of air. - Pt's son Willi asked to be called if his father is either worsening or being considered for discharge. Phone number . - On discharge pt will need [employer] contacted regarding his oxygen services as he uses them to provide his oxygen. New-Onset AFib with RVR - Overnight was able to rate control pt with amiodarone and dilt drip; dilt eventually titrated down to 0 by 3am. At 12pm received page that pt back in AFib with oxygen saturation to 76% on 6LNC; dilt drop titrated up to 2.5 and oxymask 8L started with oxygenation >90%. Will continue titrating up as tolerated by pt's BP. - Cardiology Dr. Sher following. - Will continue to monitor for symptoms. Pt's oxygen status is tenuous due to inability to tolerate pressure (BiPAP, CPAP) due to very large emphysematous bleb in right lung. Will continue to closely watch fluid status and oxygen status as we treat his AFib. MERLYN on CKD - Pt found on admission to have an MERLYN with Cr 3.28, baseline 1.3-1.6. - Decreased to 2.50 with hydration and several fluid boluses. - Pt euvolemic on exam, however last night while in AFib sounded fluid overloaded, so have to take care with rehydrating him. Per nephrology to get NSS 1L @ 80/hr and will monitor. - Has hematuria related to Velez catheter. FeNa 1.2% but urine microscopy shows granular casts c/w ATN. Renal US: 9.5 cm kidneys w/ cortical thinning. No obstruction. Pulmonary emphysema - Pt with chronic emphysema and a 50 pack year smoking history on chronic 3-4L NC at home. Using 5LNC at this time. - CXR 08/18/19: Advanced emphysematous change is again noted. A bleb largely fills the right lung and this is unchanged from prior examinations. - Continue oxygen by nasal cannula and titrate down to baseline as tolerated. - Pulmonary service consulted, recommendations include: Transition the patient to budesonide and Perforomist as well as Spiriva to see if he has a better clinical response. Elevated troponin - Likely due to worsening renal failure and poor clearance. Patient does not have complaints of chest pain. There are noted T wave inversion in inferior leads, anterior leads and lateral leads. Could be a sign of demand ischemia due to acute infection associated with sepsis and tachycardia. - Troponins trending down from 0.147 -> 0.111. - TTE 08/19/19 showed EF 60-65%, mild MR, no wall motion abnormalities. - Continue to monitor for cardiac signs and symptoms. Odynophagia - Pt reported sore throat on exam and throat exam reveals whitish patches on tongue and soft palate consistent with oral candidiasis. Pt does use inhalers on a regular basis. - Have educated further on rinsing mouth following use of inhalers. - Have prescribed Nystatin swish and swallows q4h and will reassess patient tomorrow for improvement. Vitamin D deficiency - Pt receiving supplementation with Vitamin D3 2000IU daily, one dose Vitamin D2 given inpatient. Anemia of chronic disease - Pt's Hgb fluctuates between 9-12 over the last 3 years. Today 10.8 and without signs or symptoms that correlate with active bleeding. Hx of hypokalemia - Pt takes potassium 20meq PO BID at home; on admission had K 5.9 -> 5.2 -> 4.7 3.8 today. This elevation likely due to MERLYN and is trending down with fluids. - Will resume potassium supplementation at 20meq qAM and check BMP tomorrow AM. Code Status: FULL CODE FEN/GI: Encourage further PO intake DVT ppx: currently on heparin drip due to AFib Dispo: jai/surg (2) Acute on chronic kidney failure: (3) Chronic respiratory failure: (4) Pulmonary emphysema: (5) Elevated troponin: (6) Vitamin D deficiency: (7) Pulmonary hypertension, secondary: (8) Anemia: (9) Hypercholesterolemia: Supervising Physician Co-Signing Physician Notes I personally examined the patient and verified all wilkerson points of history and exam, discussed case, and agree with decision making with Dr Francis. No shortness of breath. No chest pain. Generally feeling better overall. Rates were controlled through the night, a little bit faster this afternoon. Vitals noted, in general he is awake and alert pleasant no distress. HEENT normocephalic atraumatic mucous members moist. Left lung surprisingly clear now, (does seem to have a waxing and waning lung exam) right is extremely quiet. Chest x-ray noted. Sepsis present on admission related to left-sided pneumonia with gram-negative bacteremiacontinue supportive care and antibiotics. Increase pulmonary toilet to hopefully improve oxygenation New onset A. fib with rapid ventricular responseon again off again he has shown hints of acute diastolic CHF related to his rate, right now he does not. It seems generally whenever he is in the higher 100s is where he starts to decompensate in this respectwhich is understandable given that the max predicted heart rate for his age would be around 140. Continue amiodarone, continue diltiazem, continue anticoagulation. MERLYN on CKDrelated to dehydration from poor oral intake as well as from septic physiology. Careful IV fluids given his potential for diastolic CHF related to the rates with his A. fib, but agree that right now fluids are necessary. Creatinine is improving. Secondary hyperparathyroidism related to vitamin D deficiencycontinue to replace vitamin D, follow periodically. Otherwise as above. Subjective Before my sign out last night pt developed asymptomatic AFib with RVR HR in 170's, was given metoprolol which dropped BP, given fluids and dilt drip and sounded fluid overloaded temporarily with O2 saturation to 86% on NC. Was transitioned to oxymask, amiodarone drip started, and cards consulted. Around 1 1PM patient converted to sinus rhythm. Currently only on amiodarone drip and still in sinus rhythm and now on 6LNC with SPO2 90%. Reports no increased SOB, no wheezing, no fevers or chills, CP. Review of Systems Constitutional: no fever, no chills and no malaise Ear, Nose, Mouth, Throat: + dry mouth and + sore throat Respiratory: + dyspnea (no change from yesterday); no cough Cardiovascular: no chest pain, no palpitations and no edema Gastrointestinal: no abdominal pain, no constipation and no diarrhea/loose stools Physical Exam Constitutional: WD/WN, vitals as above ENMT: whitish plaques on back of tongue and soft palate. Respiratory: normal respiratory effort right lung with diminished breath sounds. left lung with diffuse crackles. Cardiovascular: RRR, no murmur, no edema Gastrointestinal (Abdomen): normal bowel sounds, soft, nontender, no hepatosplenomegaly Skin: no rashes, warm and dry Psychiatric: A+Ox3, euthymic affect Results & Data Vital Signs (Past 12 Hours) Vital Signs Temp Pulse Pulse Pulse Resp BP Pulse Ox 08/20/19 07:11 73 18 91 08/20/19 07:06 36.6 C 72 18 103/62 93 08/20/19 03:07 91 H 18 94 08/20/19 03:00 36.4 C L 74 24 102/62 95 08/19/19 23:26 85 08/19/19 23:10 36.4 C L 74 16 96/60 L 97 08/19/19 22:42 71 18 98 08/19/19 19:19 36.4 C L 102 H 22 102/61 90 Laboratory Results Laboratory Results - last 24 hr 08/19/19 08/19/19 08/19/19 19:30 Unknown Unknown WBC RBC Hgb Hct MCV MCH MCHC RDW Std Deviation RDW Coeff of Rupali Plt Count MPV Immature Gran % (Auto) Neut % (Auto) Lymph % (Auto) [place] % (Auto) Eos % (Auto) Baso % (Auto) Immature Gran # (Auto) Neut # (Auto) Lymph # (Auto) [place] # (Auto) Eos # (Auto) Baso # (Auto) Absolute Nucleated RBC Nucleated RBC % (auto) APTT 46.8 H* PTT Ratio 1.7 Sodium Potassium Chloride Carbon Dioxide Anion Gap BUN Creatinine Est Cr Clr Drug Dosing Est GFR ( Amer) Est GFR (Non-Af Amer) BUN/Creatinine Ratio Glucose Calcium 25-OH Vitamin D Total Urine Color Yellow Urine Appearance Turbid A Urine pH 5.0 Ur Specific Perry 1.020 Urine Protein 1+ H Urine Glucose (UA) Negative Urine Ketones Negative Urine Blood 3+ H Urine Nitrite Negative Urine Bilirubin Negative Urine Urobilinogen Negative Ur Leukocyte Esterase Trace H Urine WBC (Auto) 1-5 Urine RBC (Auto) >30 H U Hyaline Cast (Auto) 1-5 U Epithel Cells (Auto) >30 H Urine Bacteria (Auto) Negative Granular Casts 5-10 H Urine Yeast Not Reportable Ur Random Creatinine 50.8 Ur Random Sodium 08/19/19 08/20/19 08/20/19 Unknown 01:56 01:56 WBC RBC Hgb Hct MCV MCH MCHC RDW Std Deviation RDW Coeff of Rupali Plt Count MPV Immature Gran % (Auto) Neut % (Auto) Lymph % (Auto) [place] % (Auto) Eos % (Auto) Baso % (Auto) Immature Gran # (Auto) Neut # (Auto) Lymph # (Auto) [place] # (Auto) Eos # (Auto) Baso # (Auto) Absolute Nucleated RBC Nucleated RBC % (auto) APTT 115.7 H* PTT Ratio 4.3 Sodium 144 Potassium 3.8 D Chloride 110 H Carbon Dioxide 25 Anion Gap 9.0 BUN 76 H Creatinine 2.50 H D Est Cr Clr Drug Dosing 22.0 Est GFR ( Amer) 27.3 Est GFR (Non-Af Amer) 23.5 BUN/Creatinine Ratio 30.3 H Glucose 132 H Calcium 9.1 25-OH Vitamin D Total Urine Color Urine Appearance Urine pH Ur Specific Perry Urine Protein Urine Glucose (UA) Urine Ketones Urine Blood Urine Nitrite Urine Bilirubin Urine Urobilinogen Ur Leukocyte Esterase Urine WBC (Auto) Urine RBC (Auto) U Hyaline Cast (Auto) U Epithel Cells (Auto) Urine Bacteria (Auto) Granular Casts Urine Yeast Ur Random Creatinine Ur Random Sodium 30 08/20/19 08/20/19 01:56 01:56 WBC 10.46 RBC 3.05 L Hgb 9.6 L Hct 29.1 L MCV 95.4 MCH 31.5 MCHC 33.0 RDW Std Deviation 53.1 H RDW Coeff of Rupali 15.3 H Plt Count 124 L MPV 10.3 Immature Gran % (Auto) 1.3 Neut % (Auto) 89.6 Lymph % (Auto) 4.6 [place] % (Auto) 4.3 Eos % (Auto) 0.1 Baso % (Auto) 0.1 Immature Gran # (Auto) 0.14 H Neut # (Auto) 9.37 H Lymph # (Auto) 0.48 L [place] # (Auto) 0.45 Eos # (Auto) 0.01 Baso # (Auto) 0.01 Absolute Nucleated RBC 0.02 H Nucleated RBC % (auto) 0.2 APTT PTT Ratio Sodium Potassium Chloride Carbon Dioxide Anion Gap BUN Creatinine Est Cr Clr Drug Dosing Est GFR ( Amer) Est GFR (Non-Af Amer) BUN/Creatinine Ratio Glucose Calcium 25-OH Vitamin D Total 25.9 L Urine Color Urine Appearance Urine pH Ur Specific [place] Urine Protein Urine Glucose (UA) Urine Ketones Urine Blood Urine Nitrite Urine Bilirubin Urine Urobilinogen Ur Leukocyte Esterase Urine WBC (Auto) Urine RBC (Auto) U Hyaline Cast (Auto) U Epithel Cells (Auto) Urine Bacteria (Auto) Granular Casts Urine Yeast Ur Random Creatinine Ur Random Sodium Medications Administered Current Medications Acetaminophen (Tylenol) 650 mg PO Q4H PRN PRN Reason: Pain or Fever Stop: 09/17/19 18:11 Al Hydrox/Mg Hydrox/Simethicone (Maalox) 15 ml PO Q4H PRN PRN Reason: Dyspepsia Stop: 09/17/19 18:11 Albuterol (Duoneb) 3 ml NEB Q4R SAYRA Stop: 09/17/19 18:59 Last Admin: 08/20/19 07:11 Dose: Not Given Documented by: Albuterol (Ventolin Hfa) 2 puffs INH Q4R PRN PRN Reason: SOB/WHEEZING Stop: 09/17/19 18:23 Azithromycin (Zithromax) 250 mg PO QAM [facility] Stop: 08/26/19 10:59 Last Admin: 08/20/19 08:30 Dose: 250 mg Documented by: Budesonide (Pulmicort Respules) 0.5 mg NEB BIDR [facility] Stop: 09/18/19 18:59 Last Admin: 08/20/19 07:10 Dose: 0.5 mg Documented by: Ergocalciferol (Vitamin D2) 50,000 units PO Sa@0900 [facility] Stop: 09/18/19 08:59 Last Admin: 08/19/19 09:25 Dose: 50,000 units Documented by: Formoterol Fumarate (Perforomist) 20 mcg NEB BIDR [facility] Stop: 09/18/19 10:59 Last Admin: 08/20/19 07:10 Dose: 20 mcg Documented by: Ceftriaxone Sodium 1,000 mg/ (Dextrose) 50 mls @ 100 mls/hr IV Q24H [facility]; Protocol Stop: 08/26/19 09:59 Last Infusion: 08/19/19 11:11 Dose: Infused Documented by: Diltiazem HCl 125 mg/ Dextrose 125 mls @ 0 mls/hr IV .Q0M [facility]; Protocol Stop: 09/18/19 17:59 Last Titration: 08/20/19 04:39 Dose: 0 mg/hr, 0 mls/hr Documented by: Amiodarone HCl/Dextrose (Nexterone / D5w) 360 mg in 200 mls @ 16.667 mls/hr IV .Q12H SAYRA Stop: 09/19/19 00:32 Last Admin: 08/20/19 01:01 Dose: 0.5 mg/min, 16.7 mls/hr Documented by: Heparin Sodium/Dextrose (Heparin Sodium/Dextrose) 25,000 units in 500 mls @ 12 mls/hr IV .Q24H [facility]; Protocol Stop: 09/18/19 18:44 Last Titration: 08/20/19 07:07 Dose: 6,000 units/hr, 120 mls/hr Documented by: Magnesium Hydroxide (Milk Of Magnesia) 30 ml PO Q12H PRN PRN Reason: Constipation Stop: 09/17/19 18:11 Nystatin (Mycostatin) 5 ml PO QID [facility] Stop: 08/30/19 08:59 Polyethylene Glycol (Miralax Powder Packet) 17 gm PO DAILY PRN PRN Reason: Constipation Stop: 09/17/19 18:11 Sodium Chloride ([place] Nasal) 2 sprays NA TID PRN PRN Reason: Congestion Stop: 09/19/19 08:44 Tiotropium [place] (Spiriva) 1 puffs INH DAILY [facility] Stop: 09/17/19 18:59 Last Admin: 08/20/19 08:28 Dose: 1 puffs Documented by: Vitamin D (Vitamin D3) 2,000 units PO QAM SAYRA Stop: 09/18/19 08:59 Last Admin: 08/20/19 08:29 Dose: 2,000 units Documented by: Resident Activity Tracking Resident Involvement: Resident Care Provided Care Provided: Adult Hospital Medicine (1) Pneumonia Laterality: unspecified laterality Lung location: unspecified part of lung Pneumonia type: due to unspecified organism Qualified Code(s): J18.9 - Pneumonia, unspecified organism
[2019-08-20] MEDS: TIOTROPIUM BROMIDE 5 PUFF/90 MCG INH INH SCH (08:28)
[2019-08-20] MEDS: CHOLECALCIFEROL 1,000 UNITS TAB PO SCH (08:29)
[2019-08-20] MEDS: AZITHROMYCIN 250 MG TAB PO SCH (08:30)
[2019-08-20] MEDS ORDERED: SODIUM CHLORIDE 0.65% NA SOLN 45 ML (OCEAN) PRN (08:45)
[2019-08-20] MEDS ORDERED: SODIUM CHLORIDE 0.65% NA SOLN 45 ML (OCEAN) ONE (08:49)
--- NOTE | 2019-08-20 10:20 | Cardiology Progress Note ---
Date of Service August 20, 2019 Assessment & Plan (1) Atrial fibrillation: He does not have a history of atrial fibrillation to my knowledge, he does not recognize it and he is not on an anticoagulant as an outpatient. He is however asymptomatic but the rate is very fast. The arrhythmia could be due to his acute state currently but is possible he has asymptomatic paroxysmal atrial fibrillation in the past as well. With such a good response to intravenous amiodarone I would recommend continuing it despite his lung disease. I would recommend adding amiodarone 400 mg twice daily to his IV dose today and then discontinue the intravenous tomorrow morning. I would continue the 400 mg twice daily for about a week and then drop the dose down. I would also recommend anticoagulation, I prefer Eliquis but I will leave that up to the primary service. I have not entered these orders but I can if the primary service would like. (2) Elevated troponin: He did have elevated troponin on admission, there is not a clear trend although the third is the lowest and the levels were relatively low although abnormal. This is likely due to demand ischemia due to his lung disease, to my knowledge he does not have a diagnosis of coronary disease although he could have underlying coronary disease. I would not pursue further at this time. Subjective He feels and looks better today, he has no specific cardiac complaints. He is still complaining of having phlegm that he cannot bring up in some shortness of breath but no cardiac complaints. Physical Exam Physical Exam: Constitutional: Alert, cooperative and in no distress. Pulmonary: Clear to auscultation bilaterally. Cardiac: Regular rhythm with no murmur, gallop or rub. Abdomen: Soft, nontender with normal bowel sounds. Extremities: No edema. Skin: No rash, ecchymoses or petechiae. Results & Data Vital Signs (Past 12 Hours) Vital Signs Temp Pulse Pulse Pulse Resp BP Pulse Ox 08/20/19 07:11 73 18 91 08/20/19 07:06 36.6 C 72 18 103/62 93 08/20/19 03:07 91 H 18 94 08/20/19 03:00 36.4 C L 74 24 102/62 95 08/19/19 23:26 85 08/19/19 23:10 36.4 C L 74 16 96/60 L 97 08/19/19 22:42 71 18 98 Laboratory Results Abnormal lab results 08/19/19 08/19/19 08/20/19 Range/Units 19:30 Unknown 01:56 RBC (4.7-6.1) M/uL Hgb (14.0-18.0) g/dL Hct (42-52) % RDW Std Deviation (36.4-46.3) fL RDW Coeff of Rupali (11.5-14.5) % Plt Count (130-400) K/uL Immature Gran # (Auto) (0.00-0.02) K/uL Neut # (Auto) (1.4-6.5) K/uL Lymph # (Auto) (1.2-3.4) K/uL Absolute Nucleated RBC (0-0) K/uL APTT 46.8 H* (21.0-31.0) Seconds Chloride 110 H (98-107) mmol/L BUN 76 H (7-18) mg/dl Creatinine 2.50 H D (0.6-1.4) mg/dl BUN/Creatinine Ratio 30.3 H (10-20) Glucose 132 H (70-99) mg/dl 25-OH Vitamin D Total (30-100) ng/ml Urine Appearance Turbid A (Clear) Urine Protein 1+ H (Negative) Urine Blood 3+ H (Negative) Ur Leukocyte Esterase Trace H (Negative) Urine RBC (Auto) >30 H (0-4) /hpf U Epithel Cells (Auto) >30 H (0-5) /lpf Granular Casts 5-10 H (0) /lpf 08/20/19 08/20/19 08/20/19 Range/Units 01:56 01:56 01:56 RBC 3.05 L (4.7-6.1) M/uL Hgb 9.6 L (14.0-18.0) g/dL Hct 29.1 L (42-52) % RDW Std Deviation 53.1 H (36.4-46.3) fL RDW Coeff of Rupali 15.3 H (11.5-14.5) % Plt Count 124 L (130-400) K/uL Immature Gran # (Auto) 0.14 H (0.00-0.02) K/uL Neut # (Auto) 9.37 H (1.4-6.5) K/uL Lymph # (Auto) 0.48 L (1.2-3.4) K/uL Absolute Nucleated RBC 0.02 H (0-0) K/uL APTT 115.7 H* (21.0-31.0) Seconds Chloride (98-107) mmol/L BUN (7-18) mg/dl Creatinine (0.6-1.4) mg/dl BUN/Creatinine Ratio (10-20) Glucose (70-99) mg/dl 25-OH Vitamin D Total 25.9 L (30-100) ng/ml Urine Appearance (Clear) Urine Protein (Negative) Urine Blood (Negative) Ur Leukocyte Esterase (Negative) Urine RBC (Auto) (0-4) /hpf U Epithel Cells (Auto) (0-5) /lpf Granular Casts (0) /lpf Diagnostic Findings Telemetry: His rhythm has stabilized on telemetry on IV amiodarone. He may have brief bursts of atrial fibrillation but the rhythm is much better controlled. He is generally in sinus rhythm with a controlled heart rate. PG Care Time/CCT Total # of Minutes Spent Total Time Spent with Patient: Total time spent is greater than 50% in coordination of care (as documented) at patient's floor/unit and/or counseling patient:
--- NOTE | 2019-08-20 10:40 | Pulmonology Progress Note ---
Date of Service August 20, 2019 Assessment & Plan (1) Pneumonia: Impression: 79-year-old male with end-stage bullous emphysema now admitted with pneumonia and progressive hypoxemic respiratory failure acute on chronic. Recommendations: 1. Pneumonia: Continue Rocephin and azithromycin. Blood cultures 2 out of 2 with gram-negative rods. Speciation and sensitivity currently pending. White blood cell count remains normal and the patient has not had any evidence of fevers or sepsis. Can check procalcitonin in 24 to 48 hours to ensure its decreasing. He will need a follow-up chest x-ray in 2 to 4 weeks 2. COPD: We will continue the patient on budesonide and Perforomist as well as Spiriva to see if he has a better clinical response. Hold systemic steroids. Add Mucinex and hypertonic saline to his regimen to improve pulmonary toilet. Given his significant bullae, could consider evaluation for bullectomy as an outpatient however he would need to be much more clinically stable and he is currently and given his advanced age, and medical comorbidities he may not be a candidate. Briefly reviewed films with thoracic surgery who felt he would be an appropriate surgical candidate 3. Acute on chronic hypoxemic respiratory failure: Continue oxygen titrated to keep saturations at or above 88%. 4. Cachexia: Nutritional consult recommended. Increase caloric intake. We will continue to follow with you. Feel free to contact us with questions or concerns. Laterality: unspecified laterality Lung location: unspecified part of lung Pneumonia type: due to unspecified organism Qualified Code(s): J18.9 - Pneumonia, unspecified organism (2) Acute on chronic respiratory failure: Respiratory failure complication: hypoxia Qualified Code(s): J96.21 - Acute and chronic respiratory failure with hypoxia (3) Pulmonary emphysema: Subjective Patient seen and examined. He feels he is improving somewhat. He continues to have difficulty expectorating phlegm. He is less short of breath than yester day. Review of Systems Review of Systems: Unchanged from prior Physical Exam Constitutional: + thin and + cachectic; not in distress ENMT: external ear and nose normal, oropharynx normal Neck: trachea midline, no thyromegaly Respiratory: Breath sounds diminished bilaterally. No wheezing Cardiovascular: RRR, no murmur, no edema Gastrointestinal (Abdomen): normal bowel sounds, soft, nontender, no hepatosplenomegaly Psychiatric: A+Ox3, euthymic affect Results & Data Vital Signs (Past 12 Hours) Vital Signs Temp Pulse Pulse Pulse Resp BP Pulse Ox 08/20/19 07:11 73 18 91 08/20/19 07:06 36.6 C 72 18 103/62 93 08/20/19 03:07 91 H 18 94 08/20/19 03:00 36.4 C L 74 24 102/62 95 08/19/19 23:26 85 08/19/19 23:10 36.4 C L 74 16 96/60 L 97 08/19/19 22:42 71 18 98 Laboratory Results 08/20/19 01:56 08/20/19 01:56 Diagnostic Findings No new films PG Care Time/CCT Total # of Minutes Spent Total Time Spent with Patient: Total time spent is greater than 50% in coordination of care (as documented) at patient's floor/unit and/or counseling patient:
[2019-08-20] MEDS: NYSTATIN SUSP 500,000 U/5 ML UDC PO SCH ×4 (10:42→20:32)
--- NOTE | 2019-08-20 10:43 | Nephrology Progress Note ---
Date of Service August 20, 2019 Assessment & Plan (1) Acute kidney injury: -- MERLYN due to intravascular volume contraction, PNA -- Hematuria related to Velez catheter. FeNa 1.2% but urine microscopy shows granular casts c/w ATN -- Renal US: 9.5 cm kidneys w/ cortical thinning. No obstruction -- Will provide 1 L 0.9NS today -- Monitor UO, PRP (2) Chronic kidney disease, stage 3: -- Baseline Cr 1.3 - 1.6 (3) Pneumonia: -- Blood cultures w/ G- bacilli -- On Ceftriaxone and Azithromycin therapy Subjective Mr. Jim was seen & examined in his hospital room this morning. He denies fever or angina. He reports that his dyspnea is mildly improved. Review of Systems Constitutional: + weakness; no fever and no chills Eyes: no worsening vision and no problem reported Ear, Nose, Mouth, Throat: no problem reported Respiratory: + cough and + dyspnea Cardiovascular: no chest pain, no palpitations and no edema Gastrointestinal: no abdominal pain, no nausea, no vomiting and no diarrhea/loose stools Genitourinary: no dysuria, no urinary hesitancy and no hematuria Musculoskeletal: no back pain Integumentary: no rash Neurologic: no falls and no dizziness Physical Exam Constitutional: + cachectic; not in distress Eyes: PERRL, conjunctivae normal, anicteric sclerae ENMT: external ear and nose normal, oropharynx normal Neck: trachea midline, no thyromegaly Respiratory: + prolonged expiratory phase Auscultation: + crackles and + wheezes Cardiovascular: RRR, no murmur, no edema Gastrointestinal (Abdomen): normal bowel sounds, soft, nontender, no hepatosplenomegaly Musculoskeletal: Extremities: no cyanosis Skin: no rashes, warm and dry Neurologic: awake; not confused Results & Data Vital Signs (Past 12 Hours) Vital Signs Temp Pulse Pulse Pulse Resp BP Pulse Ox 08/20/19 07:11 73 18 91 08/20/19 07:06 36.6 C 72 18 103/62 93 08/20/19 03:07 91 H 18 94 08/20/19 03:00 36.4 C L 74 24 102/62 95 08/19/19 23:26 85 08/19/19 23:10 36.4 C L 74 16 96/60 L 97 08/19/19 22:42 71 18 98 Laboratory Results Laboratory Tests 08/20/19 08/20/19 01:56 01:56 WBC 10.46 Hgb 9.6 L Hct 29.1 L Plt Count 124 L Sodium 144 Potassium 3.8 D Chloride 110 H Carbon Dioxide 25 BUN 76 H Creatinine 2.50 H D Glucose 132 H PG Care Time/CCT Total # of Minutes Spent Total Time Spent with Patient: Total time spent is greater than 50% in coordination of care (as documented) at patient's floor/unit and/or counseling patient: (1) Pneumonia Laterality: unspecified laterality Lung location: unspecified part of lung Pneumonia type: due to unspecified organism Qualified Code(s): J18.9 - Pneumonia, unspecified organism
[2019-08-20] MEDS ORDERED: SODIUM CHLORIDE 0.9% 1000ML 1,000 ML IV SCH (10:45)
[2019-08-20 10:55] LABS: Partial Thromboplastin Time 109.3 Seconds (21.0-31.0)
[2019-08-20] MEDS: dilTIAZem HCL 125 MG in DEXTROSE 5% 100 ML IV SCH ×2 (11:25→18:04)
[2019-08-20] MEDS: cefTRIAXone SODIUM 1,000 MG in DEXTROSE 5% 50 ML IV SCH (12:03)
[2019-08-20] MEDS: POTASSIUM CHLORIDE 20 MEQ TABCR PO SCH (12:12)
--- NOTE | 2019-08-20 16:46 | Billing Data ---
Coding Level of Care Code 20784 Subseq Hosp Care Lvl 3
[2019-08-20 17:35] LABS: Partial Thromboplastin Ratio 2.7
[2019-08-20 17:38] LABS: Partial Thromboplastin Time 72.3 Seconds (21.0-31.0)
[2019-08-20] MEDS: SODIUM CHLOR 7% 4 ML NEB NEB SCH (18:55)
[2019-08-20] MEDS: guaiFENesin 600 MG TABCR PO SCH (20:32)
[2019-08-21 00:14] LABS: Partial Thromboplastin Ratio 2.4
[2019-08-21 00:18] LABS: Partial Thromboplastin Time 64.3 Seconds (21.0-31.0)
[2019-08-21] MEDS: ALBUT/IPRATROP 3MG/0.5MG NEB 3 ML VIAL NEB SCH ×6 (03:02→23:22)
[2019-08-21] MEDS: dilTIAZem HCL 125 MG in DEXTROSE 5% 100 ML IV SCH ×3 (05:56→23:44)
[2019-08-21 06:57] LABS: Basophils # (auto) 0.01 K/uL (0-0.2); Basophils % (auto) 0.1 %; Hematocrit (blood only) 29.6 % (42-52); Hemoglobin 9.9 g/dL (14.0-18.0); Immature Granulocytes # (auto) 0.25 K/uL (0.00-0.02); Immature Granulocytes % (auto) 1.7 %; Lymphocytes % (auto) 4.9 %; Mean Corpuscular Hemoglobin 31.9 pg (25-34); Mean Corpuscular Hgb Conc 33.4 g/dL (32-36); Mean Corpuscular Volume 95.5 fL (80-100); Mean Platelet Volume 11.1 fL (7.4-10.4); Monocytes # (auto) 0.79 K/uL (0.11-0.59); Monocytes % (auto) 5.5 %; Neutrophils # (auto) 12.58 K/uL (1.4-6.5); Neutrophils % (auto) 87.8 %; Nucleated RBC # (auto) 0.02 K/uL (0-0); Nucleated RBC % (auto) 0.1 %; Platelet Count 129 K/uL (130-400); RDW Coefficient of Variation 15.7 % (11.5-14.5); RDW Standard Deviation 54.6 fL (36.4-46.3); White Blood Count 14.33 K/uL (4.8-10.8)
[2019-08-21] MEDS: BUDESONIDE 0.5 MG/2 ML VIAL (PULMICORT) NEB SCH ×2 (07:11→19:10)
[2019-08-21] MEDS: FORMOTEROL 20 MCG/2 ML VIAL NEB SCH ×2 (07:11→19:10)
[2019-08-21 07:27] LABS: Partial Thromboplastin Time 54.1 Seconds (21.0-31.0)
[2019-08-21] MEDS: SODIUM CHLOR 7% 4 ML NEB NEB SCH (07:30)
--- NOTE | 2019-08-21 07:44 | Hospitalist Progress Note ---
Date of Service August 21, 2019 Assessment & Plan (1) Pneumonia: 79 yo M PMHx emphysema, CKD stage III, pulmonary HTN, anemia presents for 1 week of worsening shortness of breath and found to be bacteremic with a left sided pneumonia and MERLYN, with new-onset AFib with RVR overnight. 1) Pneumonia - Rocephin + Azithromycin 2/2 G - bacilli on blood cx. Awaiting sensitivities. - No risk factors for HCAP. - Trending CBC; new leukocytosis of 14k this AM. - Flutter valve q4h to help expectoration of mucus. Incentive spirometer to maintain good movement of air. - Pt's son Willi asked to be called if his father is either worsening or being considered for discharge. Phone number . - On discharge pt will need [employer] contacted regarding his oxygen services as he uses them to provide his oxygen. 2) Hypoxia 2/2 PNA + Chronic Emphysema - increasing oxygen requirements - does not tolerate BIPAP/CPAP due to emphysematous bleb - on oxymask in room with high flow oxygen - attempting titration to O2 Sat > 90% 3) New-Onset AFib with RVR - Attempting rate control with 10mg/hr Cardizem drip and 0.5 mg/min Amiodarone drip. Monitoring O2 sat and BP to titrate. - anticoagulation with Heparin drip - Cardiology Dr. Sher following. 4) MERLYN on CKD - Pt found on admission to have an MERLYN with Cr 3.28, baseline 1.3-1.6. - Decreased to 2.0 with hydration and several fluid boluses. - Per nephrology NSS 1L @ 80/hr for gentle hydration 5) Pulmonary emphysema - Pt with chronic emphysema and a 50 pack year smoking history on chronic 3-4L NC at home. Using 8LNC at this time. - CXR 08/18/19: Advanced emphysematous change is again noted. A bleb largely fills the right lung and this is unchanged from prior examinations. - CXR 08/21 shows no change in bleb rupture - Pulmonary recommendations: added budesonide and Perforomist as well as Spiriva to see if he has a better clinical response. 6) Elevated troponin - Likely due to worsening renal failure and poor clearance. Patient does not have complaints of chest pain. There are noted T wave inversion in inferior leads, anterior leads and lateral leads. Could be a sign of demand ischemia due to acute infection associated with sepsis and tachycardia. - Troponins trending down from 0.0.141 -> 147 -> 0.111. - TTE 08/19/19 showed EF 60-65%, mild MR, no wall motion abnormalities. - Continue to monitor for cardiac signs and symptoms. 7) Odynophagia - Pt reported sore throat on exam and throat exam reveals whitish patches on tongue and soft palate consistent with oral candidiasis. Pt does use inhalers on a regular basis. - Have educated further on rinsing mouth following use of inhalers. - Have prescribed Nystatin swish and swallows q4h 8) Vitamin D deficiency - Pt receiving supplementation with Vitamin D3 2000IU daily, one dose Vitamin D2 given inpatient. 9) Anemia of chronic disease - Pt's Hgb fluctuates between 9-12 over the last 3 years. 9.9 this AM, down from 12.1 at admission on 08/18. - FOBT ordered to r/o GI bleed on heparin drip 10) Hx of hypokalemia - Pt takes potassium 20meq PO BID at home; on admission had K 5.9 -> 5.2 -> 4.7 3.8 today. This elevation likely due to MERLYN and is trending down with fluids. - Will resume potassium supplementation at 20meq qAM and check BMP tomorrow AM. Code Status: FULL CODE FEN/GI: Encourage further PO intake DVT ppx: currently on heparin drip due to AFib Dispo: jai/surg (2) Acute on chronic kidney failure: (3) Chronic respiratory failure: (4) Pulmonary emphysema: (5) Elevated troponin: (6) Vitamin D deficiency: (7) Pulmonary hypertension, secondary: (8) Anemia: (9) Hypercholesterolemia: Supervising Physician Co-Signing Physician Notes Attending attestation Pt seen and examined in concert with Dr. Salas. In agreement with the documented findings as noted in the resident documentation with any exceptions or additions as noted here. Improving cough and stable SOB approaching baseline on increased O2 need. on examination, S1/S2 nl RRR no MCG. Left lung mildly rhonchorous and decreased right sided breath sounds throughout. Abd NT/ND BS+ve Left sided pneumonia w/ sepsis on admission - pulmonology consultation - continue abx therapy, budesonide nebs, monitor for changes Emphysema, severe - avoid +ve pressure ventilation 2/2 large unilateral bleb, else as above Atrial fibrillation, new, with RVR - cardiology consultation - improved throughout the day with titration. Continue amiodarone, dilt and AC MERLYN on CKD III - continue gentle hydration, trend Else see resident documentation as noted. Subjective 79 yo M with PMH end stage emphysema, CKD, COPD admitted for malaise and found to have a R emphysematous bleb, L sided PNA and sepsis. This morning says he is breathing much better than at admission. Has been using flutter valve and incentive spirometer; says it makes him cough up more "gunk" from his lungs. No other acute complaints. Review of Systems Constitutional: no fever, no chills, no body aches and no fatigue Respiratory: no cough and no dyspnea Cardiovascular: no chest pain, no dyspnea and no edema Gastrointestinal: no abdominal pain, no nausea, no vomiting, no constipation and no diarrhea/loose stools Physical Exam Constitutional: + thin; no acute distress Respiratory: R breath sounds greatly diminshed 2/2 emphysematous bleb L lung sounds rhonchorous throughout, no obvious crackles Visible effort of breathing with intercostal retractions and belly breathing when saturations drop below 90 Cardiovascular: Tachycardic, no murmurs gallops or rubs appreciated on exam Gastrointestinal (Abdomen): Inspection/Auscultation: normal bowel sounds; abdomen not distended Percussion/Palpation: abdomen soft; abdomen nontender Results & Data Vital Signs (Past 12 Hours) Vital Signs Temp Pulse Pulse Resp BP Pulse Ox 08/21/19 04:17 36.2 C L 94 H 24 101/70 94 08/21/19 03:02 101 H 18 94 08/20/19 23:24 115 H 08/20/19 22:35 36.4 C L 119 H 20 104/62 92 08/21/19 08/21/19 08/21/19 Range/Units 06:20 06:20 06:20 WBC 14.33 H (4.8-10.8) K/uL RBC 3.10 L (4.7-6.1) M/uL Hgb 9.9 L (14.0-18.0) g/dL Hct 29.6 L (42-52) % MCV 95.5 (80-100) fL MCH 31.9 (25-34) pg MCHC 33.4 (32-36) g/dL RDW Std Deviation 54.6 H (36.4-46.3) fL RDW Coeff of Rupali 15.7 H (11.5-14.5) % Plt Count 129 L (130-400) K/uL MPV 11.1 H (7.4-10.4) fL Immature Gran % (Auto) 1.7 % Neut % (Auto) 87.8 % Lymph % (Auto) 4.9 % [place] % (Auto) 5.5 % Eos % (Auto) 0.0 % Baso % (Auto) 0.1 % Immature Gran # (Auto) 0.25 H (0.00-0.02) K/uL Neut # (Auto) 12.58 H (1.4-6.5) K/uL Lymph # (Auto) 0.70 L (1.2-3.4) K/uL [place] # (Auto) 0.79 H (0.11-0.59) K/uL Eos # (Auto) 0.00 (0-0.5) K/uL Baso # (Auto) 0.01 (0-0.2) K/uL Absolute Nucleated RBC 0.02 H (0-0) K/uL Nucleated RBC % (auto) 0.1 % APTT 54.1 H* (21.0-31.0) Seconds PTT Ratio 2.0 Sodium Pending Potassium Pending Chloride Pending Carbon Dioxide Pending Anion Gap Pending BUN Pending Creatinine Pending Est Cr Clr Drug Dosing Pending Est GFR ( Amer) Pending Est GFR (Non-Af Amer) Pending BUN/Creatinine Ratio Pending Glucose Pending Calcium Pending 08/20/19 08/20/19 08/20/19 Range/Units 23:31 17:04 10:13 WBC (4.8-10.8) K/uL RBC (4.7-6.1) M/uL Hgb (14.0-18.0) g/dL Hct (42-52) % MCV (80-100) fL MCH (25-34) pg MCHC (32-36) g/dL RDW Std Deviation (36.4-46.3) fL RDW Coeff of Rupali (11.5-14.5) % Plt Count (130-400) K/uL MPV (7.4-10.4) fL Immature Gran % (Auto) % Neut % (Auto) % Lymph % (Auto) % [place] % (Auto) % Eos % (Auto) % Baso % (Auto) % Immature Gran # (Auto) (0.00-0.02) K/uL Neut # (Auto) (1.4-6.5) K/uL Lymph # (Auto) (1.2-3.4) K/uL [place] # (Auto) (0.11-0.59) K/uL Eos # (Auto) (0-0.5) K/uL Baso # (Auto) (0-0.2) K/uL Absolute Nucleated RBC (0-0) K/uL Nucleated RBC % (auto) % APTT 64.3 H* 72.3 H* 109.3 H* (21.0-31.0) Seconds PTT Ratio 2.4 2.7 4.0 Sodium Potassium Chloride Carbon Dioxide Anion Gap BUN Creatinine Est Cr Clr Drug Dosing Est GFR ( Amer) Est GFR (Non-Af Amer) BUN/Creatinine Ratio Glucose Calcium (1) Pneumonia Laterality: unspecified laterality Lung location: unspecified part of lung Pneumonia type: due to unspecified organism Qualified Code(s): J18.9 - Pneumonia, unspecified organism
[2019-08-21 07:51] LABS: BUN Creatinine Ratio 31.9 (10-20); Calcium 9.1 mg/dl (8.5-10.1); Creatinine Clr Calc Pharmacy 28.1 ml/min; Est GFR (African American) 34.5; Est GFR (Non-African American) 29.7; Potassium 4.5 mmol/L (3.5-5.1)
[2019-08-21] MEDS: HEPARIN SODIUM/DEXTROSE 25,000 UNITS/500 ML BAG IV SCH (08:03)
[2019-08-21] MEDS: guaiFENesin 600 MG TABCR PO SCH ×2 (08:04→20:39)
[2019-08-21] MEDS: POTASSIUM CHLORIDE 20 MEQ TABCR PO SCH (08:04)
[2019-08-21] MEDS: TIOTROPIUM BROMIDE 5 PUFF/90 MCG INH INH SCH (08:05)
[2019-08-21] MEDS: CHOLECALCIFEROL 1,000 UNITS TAB PO SCH (08:05)
[2019-08-21] MEDS: NYSTATIN SUSP 500,000 U/5 ML UDC PO SCH ×4 (08:05→20:39)
[2019-08-21] MEDS: AZITHROMYCIN 250 MG TAB PO SCH (08:05)
--- NOTE | 2019-08-21 08:54 | Pulmonology Progress Note ---
Date of Service August 21, 2019 Assessment & Plan (1) Pneumonia: Impression: 79-year-old male with end-stage bullous emphysema now admitted with pneumonia and progressive hypoxemic respiratory failure acute on chronic. Recommendations: 1. Pneumonia: Continue Rocephin and azithromycin. Blood cultures 2 out of 2 with Achromobacter sensitive to Rocephin. Recheck procalcitonin and surveil jamie cultures to ensure bacteremia is clearing. Will likely need 7 to 10 days of IV antibiotics. Would complete 5 days of azithromycin 2. COPD: We will continue the patient on budesonide and Perforomist as well as Spiriva to see if he has a better clinical response. Hold systemic steroids. Continue Mucinex but will hold hypertonic saline as the patient believes this made him worse. It may actually be that he is just mobilizing secretions. Given his significant bullae, could consider evaluation for bullectomy as an outpatient however he would need to be much more clinically stable and he is currently and given his advanced age, and medical comorbidities he may not be a candidate. The patient is not sure he would want surgery. Outpatient pulmonary rehab would be an additional consideration for him. 3. Acute on chronic hypoxemic respiratory failure: Continue oxygen titrated to keep saturations at or above 88%. 4. Cachexia: Nutritional consult recommended. Increase caloric intake. We will continue to follow with you. Feel free to contact us with questions or concerns. Laterality: unspecified laterality Lung location: unspecified part of lung Pneumonia type: due to unspecified organism Qualified Code(s): J18.9 - Pneumonia, unspecified organism (2) Acute on chronic respiratory failure: Respiratory failure complication: hypoxia Qualified Code(s): J96.21 - Acute and chronic respiratory failure with hypoxia (3) Pulmonary emphysema: Subjective Patient feels that his shortness of breath is slightly worse this morning. He believes this is related to the hypertonic saline nebs. He continues to cough and does have difficulty expectorating phlegm. His oxygen requirement is slightly increased. Review of Systems Review of Systems: Unchanged from prior Physical Exam Constitutional: + thin and + cachectic; not in distress ENMT: external ear and nose normal, oropharynx normal Neck: trachea midline, no thyromegaly Respiratory: decreased BS bilaterally. no wheezing. Cardiovascular: RRR, no murmur, no edema Gastrointestinal (Abdomen): normal bowel sounds, soft, nontender, no hepatosplenomegaly Psychiatric: A+Ox3, euthymic affect Results & Data Vital Signs (Past 12 Hours) Vital Signs Temp Pulse Pulse Resp BP Pulse Ox 08/21/19 08:02 36.2 C L 114 H 18 126/71 92 08/21/19 04:17 36.2 C L 94 H 24 101/70 94 08/21/19 03:02 101 H 18 94 08/20/19 23:24 115 H 08/20/19 22:35 36.4 C L 119 H 20 104/62 92 Laboratory Results 08/21/19 06:20 08/21/19 06:20 Diagnostic Findings No new films PG Care Time/CCT Total # of Minutes Spent Total Time Spent with Patient: Total time spent is greater than 50% in coordination of care (as documented) at patient's floor/unit and/or counseling patient:
--- NOTE | 2019-08-21 09:46 | Nephrology Progress Note ---
Date of Service August 21, 2019 Assessment & Plan (1) Acute kidney injury: -- MERLYN due to intravascular volume contraction, PNA -- Hematuria related to Velez catheter. FeNa 1.2% but urine microscopy shows granular casts c/w ATN -- Renal US: 9.5 cm kidneys w/ cortical thinning. No obstruction -- Creatinine improving with positive fluid balance -- Tolerating PO fluids -- Monitor UO, PRP (2) Chronic kidney disease, stage 3: -- Baseline Cr 1.3 - 1.6 (3) Pneumonia: -- Blood cultures w/ G- bacilli -- On Ceftriaxone and Azithromycin therapy Subjective No acute events overnight. No fevers or chills. Dyspnea improving. Review of Systems Review of Systems: All systems reviewed & are unremarkable except as noted in HPI & below Physical Exam Constitutional: well developed; no acute distress Eyes: no conjunctival abnormality and no corneal abnormality ENMT: Mouth: no oral mucosal abnormality and oral mucous membranes not dry Neck: normal visual inspection and trachea midline Respiratory: normal respiratory effort Auscultation: + rales Cardiovascular: Heart Sounds: normal S1 and normal S2 Extremities: no edema Gastrointestinal (Abdomen): Percussion/Palpation: abdomen soft; abdomen nontender Musculoskeletal: Extremities: no cyanosis and no clubbing Skin: normal turgor; no rashes Neurologic: Motor/Sensory: no tremor and no asterixis Results & Data Vital Signs (Past 12 Hours) Vital Signs Temp Pulse Pulse Resp BP Pulse Ox 08/21/19 09:07 105 H 08/21/19 08:02 36.2 C L 114 H 18 126/71 92 08/21/19 04:17 36.2 C L 94 H 24 101/70 94 08/21/19 03:02 101 H 18 94 08/20/19 23:24 115 H 08/20/19 22:35 36.4 C L 119 H 20 104/62 92 Laboratory Results Laboratory Results - last 24 hr 08/20/19 08/20/19 08/20/19 10:13 17:04 23:31 WBC RBC Hgb Hct MCV MCH MCHC RDW Std Deviation RDW Coeff of Rupali Plt Count MPV Immature Gran % (Auto) Neut % (Auto) Lymph % (Auto) [place] % (Auto) Eos % (Auto) Baso % (Auto) Immature Gran # (Auto) Neut # (Auto) Lymph # (Auto) [place] # (Auto) Eos # (Auto) Baso # (Auto) Absolute Nucleated RBC Nucleated RBC % (auto) APTT 109.3 H* 72.3 H* 64.3 H* PTT Ratio 4.0 2.7 2.4 Sodium Potassium Chloride Carbon Dioxide Anion Gap BUN Creatinine Est Cr Clr Drug Dosing Est GFR ( Amer) Est GFR (Non-Af Amer) BUN/Creatinine Ratio Glucose Calcium Procalcitonin 08/21/19 08/21/19 08/21/19 06:20 06:20 06:20 WBC 14.33 H RBC 3.10 L Hgb 9.9 L Hct 29.6 L MCV 95.5 MCH 31.9 MCHC 33.4 RDW Std Deviation 54.6 H RDW Coeff of Rupali 15.7 H Plt Count 129 L MPV 11.1 H Immature Gran % (Auto) 1.7 Neut % (Auto) 87.8 Lymph % (Auto) 4.9 [place] % (Auto) 5.5 Eos % (Auto) 0.0 Baso % (Auto) 0.1 Immature Gran # (Auto) 0.25 H Neut # (Auto) 12.58 H Lymph # (Auto) 0.70 L [place] # (Auto) 0.79 H Eos # (Auto) 0.00 Baso # (Auto) 0.01 Absolute Nucleated RBC 0.02 H Nucleated RBC % (auto) 0.1 APTT 54.1 H* PTT Ratio 2.0 Sodium 144 Potassium 4.5 D Chloride 112 H Carbon Dioxide 28 Anion Gap 4.0 BUN 66 H Creatinine 2.06 H D Est Cr Clr Drug Dosing 28.1 Est GFR ( Amer) 34.5 Est GFR (Non-Af Amer) 29.7 BUN/Creatinine Ratio 31.9 H Glucose 115 H Calcium 9.1 Procalcitonin 08/21/19 09:28 WBC RBC Hgb Hct MCV MCH MCHC RDW Std Deviation RDW Coeff of Rupali Plt Count MPV Immature Gran % (Auto) Neut % (Auto) Lymph % (Auto) [place] % (Auto) Eos % (Auto) Baso % (Auto) Immature Gran # (Auto) Neut # (Auto) Lymph # (Auto) [place] # (Auto) Eos # (Auto) Baso # (Auto) Absolute Nucleated RBC Nucleated RBC % (auto) APTT PTT Ratio Sodium Potassium Chloride Carbon Dioxide Anion Gap BUN Creatinine Est Cr Clr Drug Dosing Est GFR ( Amer) Est GFR (Non-Af Amer) BUN/Creatinine Ratio Glucose Calcium Procalcitonin Pending PG Care Time/CCT Total # of Minutes Spent Total Time Spent with Patient: Total time spent is greater than 50% in coordination of care (as documented) at patient's floor/unit and/or counseling patient: (1) Pneumonia Laterality: unspecified laterality Lung location: unspecified part of lung Pneumonia type: due to unspecified organism Qualified Code(s): J18.9 - Pneumonia, unspecified organism
[2019-08-21] MEDS: cefTRIAXone SODIUM 1,000 MG in DEXTROSE 5% 50 ML IV SCH (10:14)
[2019-08-21] MEDS: AMIODARONE / D5W 360 MG/200 ML BAG IV SCH ×2 (11:49→23:44)
--- NOTE | 2019-08-21 13:33 | XRay Report ---
XR chest 1V portable CLINICAL HISTORY: hypoxia COMPARISON STUDY: 08/18/2019 FINDINGS: There is continued radiographic evidence of severe emphysema. A large bulla occupies The entire right hemithorax. This has mass effect with mild cardiac and mediastinal shift to the left . Chronic pleural changes are present on the left. There are persistent left mid and lower lung zone airspace opacities. IMPRESSION: 1. Severe emphysema with a large bulla occupying the right hemithorax with secondary mass effect with cardiac and mediastinal shift to the left. 2. Persistent left mid and lower lung zone airspace opacities Electronically signed by: Puneet Hameed M.D. 08/21/2019 1:32 PM
[2019-08-22] MEDS: ALBUT/IPRATROP 3MG/0.5MG NEB 3 ML VIAL NEB SCH ×6 (03:12→22:44)
[2019-08-22] MEDS: dilTIAZem HCL 125 MG in DEXTROSE 5% 100 ML IV SCH ×3 (06:58→23:27)
[2019-08-22] MEDS: BUDESONIDE 0.5 MG/2 ML VIAL (PULMICORT) NEB SCH ×2 (07:08→19:01)
[2019-08-22] MEDS: FORMOTEROL 20 MCG/2 ML VIAL NEB SCH ×2 (07:08→19:01)
[2019-08-22 07:35] LABS: Partial Thromboplastin Ratio 1.5; Partial Thromboplastin Time 41.7 Seconds (21.0-31.0)
[2019-08-22 07:37] LABS: Hematocrit (blood only) 34.7 % (42-52); Hemoglobin 11.2 g/dL (14.0-18.0); Mean Corpuscular Hgb Conc 32.3 g/dL (32-36); Mean Corpuscular Volume 96.1 fL (80-100); Mean Platelet Volume 10.9 fL (7.4-10.4); Nucleated RBC # (auto) 0.09 K/uL (0-0); Nucleated RBC % (auto) 0.4 %; Platelet Count 174 K/uL (130-400); RDW Coefficient of Variation 15.7 % (11.5-14.5); RDW Standard Deviation 54.9 fL (36.4-46.3); Red Blood Count 3.61 M/uL (4.7-6.1); White Blood Count 23.07 K/uL (4.8-10.8)
[2019-08-22 07:48] LABS: Basophils # (auto) 0.05 K/uL (0-0.2); Basophils % (auto) 0.2 %; Echinocytes 1+; Eosinophils # (auto) 0.02 K/uL (0-0.5); Eosinophils % (auto) 0.1 %; Immature Granulocytes # (auto) 1.04 K/uL (0.00-0.02); Immature Granulocytes % (auto) 4.5 %; Lymphocytes # (auto) 0.85 K/uL (1.2-3.4); Lymphocytes % (auto) 3.7 %; Monocytes # (auto) 0.73 K/uL (0.11-0.59); Monocytes % (auto) 3.2 %; Neutrophils # (auto) 20.38 K/uL (1.4-6.5); Neutrophils % (auto) 88.3 %; Toxic Granulation 1+; Toxic Vacuolation 1+
[2019-08-22] MEDS ORDERED: HEPARIN IV BOLUS 3,000 UNITS in SYRINGE 0 ML IV STA (07:55)
[2019-08-22 08:01] LABS: Albumin Level 2.1 gm/dl (3.4-5.0); Calcium 9.2 mg/dl (8.5-10.1); Creatinine Clr Calc Pharmacy 33.5 ml/min; Est GFR (African American) 41.4; Est GFR (Non-African American) 35.7
[2019-08-22] MEDS: HEPARIN SODIUM/DEXTROSE 25,000 UNITS/500 ML BAG IV SCH (08:28)
[2019-08-22] MEDS: NYSTATIN SUSP 500,000 U/5 ML UDC PO SCH ×4 (08:30→20:31)
[2019-08-22] MEDS: CHOLECALCIFEROL 1,000 UNITS TAB PO SCH (08:30)
[2019-08-22] MEDS: AZITHROMYCIN 250 MG TAB PO SCH (08:30)
[2019-08-22] MEDS: guaiFENesin 600 MG TABCR PO SCH ×2 (08:30→20:30)
[2019-08-22] MEDS: TIOTROPIUM BROMIDE 5 PUFF/90 MCG INH INH SCH (08:33)
--- NOTE | 2019-08-22 08:58 | Pulmonology Progress Note ---
Date of Service August 22, 2019 Assessment & Plan (1) Pneumonia: Impression: 79-year-old male with end-stage bullous emphysema now admitted with pneumonia and progressive hypoxemic respiratory failure acute on chronic. Recommendations: 1. Pneumonia: Continue Rocephin and azithromycin. Blood cultures 2 out of 2 with Achromobacter sensitive to Rocephin. His surveillance cultures have shown 1 out of 2 gram-negative rods despite appropriate antibiotics. Will await and see if this is persistent bacteremia. ID consultation may be appropriate. Procalcitonin is decreasing which is somewhat encouraging. 2. COPD: We will continue the patient on budesonide and Perforomist as well as Spiriva to see if he has a better clinical response. Hold systemic steroids. Continue Mucinex but will hold hypertonic saline as the patient believes this made him worse. It may actually be that he is just mobilizing secretions. Given his significant bullae, could consider evaluation for bullectomy as an outpatient however he would need to be much more clinically stable and he is currently and given his advanced age, and medical comorbidities he may not be a candidate. The patient is not sure he would want surgery. Outpatient pulmonary rehab would be an additional consideration for him. 3. Acute on chronic hypoxemic respiratory failure: Increased oxygen requirement: We will repeat chest x-ray and arterial blood gas today as the patient did demonstrate hypercarbia previously. Given the patient's severe bullous emphysematous changes, I think he is a poor candidate for mechanical ventilation as the probability of iatrogenic pneumothorax or barotrauma is quite significant in this patient. If his CO2 levels are high, we could consider noninvasive positive pressure ventilation with BiPAP again however his severe bullous emphysema would be somewhat problematic. Addressing CODE STATUS is highly appropriate. I initially had a discussion with the patient and he stated he wanted everything done. If the patient were to progress to grey respiratory failure, the likelihood of him coming off of the ventilator without a tracheostomy I think would be quite low. 4. Cachexia: Nutritional consult recommended. Increase caloric intake. 5. Atrial fibrillation: Management per primary service. Agree with restarting diuretics. Given his significant lung disease, amiodarone may not be the best long-term option for him however I am not sure we have decent alternatives. Per cardiology We will continue to follow with you. Feel free to contact us with questions or concerns. Laterality: unspecified laterality Lung location: unspecified part of lung Pneumonia type: due to unspecified organism Qualified Code(s): J18.9 - Pneumonia, unspecified organism (2) Acute on chronic respiratory failure: Respiratory failure complication: hypoxia Qualified Code(s): J96.21 - Acute and chronic respiratory failure with hypoxia (3) Pulmonary emphysema: Subjective Patient seen and examined. EMR reviewed. Overnight he has had an escalation of his oxygen requirement was transition to heated high flow nasal cannula. He is currently on an FiO2 of 100% with 30 L/min. He states his cough is becoming mor e productive. He denies any chest pain or palpitations. He has not noted significant lower extremity edema. No hemoptysis. He is tolerating a diet and appears comfortable and in no acute respiratory distress currently. Review of Systems Review of Systems: Unchanged from prior Physical Exam Constitutional: + thin and + cachectic; not in distress ENMT: external ear and nose normal, oropharynx normal Neck: trachea midline, no thyromegaly Respiratory: Breath sounds diminished throughout without wheezing Cardiovascular: RRR, no murmur, no edema Gastrointestinal (Abdomen): normal bowel sounds, soft, nontender, no hepatosplenomegaly Psychiatric: A+Ox3, euthymic affect Results & Data Vital Signs (Past 12 Hours) Vital Signs Temp Pulse Pulse Resp BP Pulse Ox 08/22/19 07:57 92 H 08/22/19 07:46 36.4 C L 104 H 21 139/85 91 08/22/19 07:40 106 H 26 H 93 08/22/19 07:09 85 26 H 84 L 08/22/19 04:08 36.7 C 96 H 20 110/68 90 08/21/19 23:49 105 H 08/21/19 23:34 36.6 C 104 H 19 105/64 83 L 08/21/19 23:24 100 H 20 86 L Laboratory Results 08/22/19 07:14 08/22/19 07:14 Diagnostic Findings Chest x-ray from today pending PG Care Time/CCT Total # of Minutes Spent Total Time Spent with Patient: Total time spent is greater than 50% in coordination of care (as documented) at patient's floor/unit and/or counseling patient:
[2019-08-22] MEDS ORDERED: FUROSEMIDE 20 MG in SYRINGE 0 ML IV ONE ×2 (09:00→19:00)
--- NOTE | 2019-08-22 09:07 | XRay Report ---
XR chest 1V portable CLINICAL HISTORY: Shortness of breath COMPARISON STUDY: 08/21/2019 FINDINGS: There is continued radiographic evidence of severe emphysema. A large bulla occupies nearly the entire right hemithorax.. There are persistent diffuse left lung airspace opacities most pronoun elaine within the left mid and lower lung zones.[There are no significant pleural effusions IMPRESSION: 1. Left lung volume loss with stable to slightly progressive relatively diffuse left lung airspace op acities 2. Emphysema with a large right lung bulla, occupying nearly the entire right hemithorax Electronically signed by: Puneet Hameed M.D. 08/22/2019 9:06 AM
--- NOTE | 2019-08-22 09:19 | Nephrology Progress Note ---
Date of Service August 22, 2019 Assessment & Plan (1) Acute kidney injury: -- MERLYN due to intravascular volume contraction, PNA -- Hematuria related to Velez catheter. FeNa 1.2% but urine microscopy shows granular casts c/w ATN -- Renal US: 9.5 cm kidneys w/ cortical thinning. No obstruction -- Creatinine continues to improve -- Tolerating PO fluids -- Obligatory IV intake remains high, agree with starting low dose loop diuretic to encourage even to slightly negative fluid balance -- Monitor UO, PRP (2) Chronic kidney disease, stage 3: -- Baseline Cr 1.3 - 1.6 (3) Pneumonia: -- Blood cultures w/ G- bacilli -- On Ceftriaxone and Azithromycin therapy Subjective Increased O2 requirement overnight. Overall, the patient states that he feels better today. Cough is more productive. No fevers or chills. Velez draining clear yellow urine. Review of Systems Review of Systems: All systems reviewed & are unremarkable except as noted in HPI & below Physical Exam Constitutional: well developed; no acute distress Eyes: no conjunctival abnormality and no corneal abnormality ENMT: Mouth: no oral mucosal abnormality and oral mucous membranes not dry Neck: normal visual inspection and trachea midline Respiratory: normal respiratory effort Auscultation: + rales Cardiovascular: Heart Sounds: normal S1 and normal S2 Extremities: no edema Gastrointestinal (Abdomen): Percussion/Palpation: abdomen soft; abdomen nontender Musculoskeletal: Extremities: no cyanosis and no clubbing Skin: normal turgor; no rashes Neurologic: Motor/Sensory: no tremor and no asterixis Results & Data Vital Signs (Past 12 Hours) Vital Signs Temp Pulse Pulse Resp BP Pulse Ox 08/22/19 07:57 92 H 08/22/19 07:46 36.4 C L 104 H 21 139/85 91 08/22/19 07:40 106 H 26 H 93 08/22/19 07:09 85 26 H 84 L 08/22/19 04:08 36.7 C 96 H 20 110/68 90 08/21/19 23:49 105 H 08/21/19 23:34 36.6 C 104 H 19 105/64 83 L 08/21/19 23:24 100 H 20 86 L Laboratory Results Laboratory Results - last 24 hr 08/21/19 08/22/19 08/22/19 09:28 07:14 07:14 WBC RBC Hgb Hct MCV MCH MCHC RDW Std Deviation RDW Coeff of Rupali Plt Count MPV Immature Gran % (Auto) Neut % (Auto) Lymph % (Auto) [place] % (Auto) Eos % (Auto) Baso % (Auto) Immature Gran # (Auto) Neut # (Auto) Lymph # (Auto) [place] # (Auto) Eos # (Auto) Baso # (Auto) Absolute Nucleated RBC Nucleated RBC % (auto) Toxic Granulation Toxic Vacuolation Echinocytes APTT 41.7 H PTT Ratio 1.5 Sodium 140 Potassium 4.0 Chloride 109 H Carbon Dioxide 25 Anion Gap 7.0 BUN 60 H Creatinine 1.77 H Est Cr Clr Drug Dosing 33.5 Est GFR ( Amer) 41.4 Est GFR (Non-Af Amer) 35.7 BUN/Creatinine Ratio 34.0 H Glucose 126 H Calcium 9.2 Phosphorus 4.0 Albumin 2.1 L Procalcitonin 1.72 H 08/22/19 07:14 WBC 23.07 H RBC 3.61 L Hgb 11.2 L Hct 34.7 L MCV 96.1 MCH 31.0 MCHC 32.3 RDW Std Deviation 54.9 H RDW Coeff of Rupali 15.7 H Plt Count 174 MPV 10.9 H Immature Gran % (Auto) 4.5 Neut % (Auto) 88.3 Lymph % (Auto) 3.7 [place] % (Auto) 3.2 Eos % (Auto) 0.1 Baso % (Auto) 0.2 Immature Gran # (Auto) 1.04 H Neut # (Auto) 20.38 H Lymph # (Auto) 0.85 L [place] # (Auto) 0.73 H Eos # (Auto) 0.02 Baso # (Auto) 0.05 Absolute Nucleated RBC 0.09 H Nucleated RBC % (auto) 0.4 Toxic Granulation 1+ Toxic Vacuolation 1+ Echinocytes 1+ APTT PTT Ratio Sodium Potassium Chloride Carbon Dioxide Anion Gap BUN Creatinine Est Cr Clr Drug Dosing Est GFR ( Amer) Est GFR (Non-Af Amer) BUN/Creatinine Ratio Glucose Calcium Phosphorus Albumin Procalcitonin PG Care Time/CCT Total # of Minutes Spent Total Time Spent with Patient: Total time spent is greater than 50% in coordination of care (as documented) at patient's floor/unit and/or counseling patient: (1) Pneumonia Laterality: unspecified laterality Lung location: unspecified part of lung Pneumonia type: due to unspecified organism Qualified Code(s): J18.9 - Pneumonia, unspecified organism
[2019-08-22 09:42] LABS: Allen Test Pos (Pos); Base Excess ABG -2.1 mEq/L (-9-1.8); HCO3 ABG 25 mmol/L (19-24); PCO2 ABG 50 mmHg (35-46); PO2 ABG 63 mm/Hg (80-95); pH ABG 7.31 (7.35-7.45)
--- NOTE | 2019-08-22 09:48 | Hospitalist Progress Note ---
Date of Service August 22, 2019 Assessment & Plan (1) Pneumonia: 79 yo M PMHx emphysema, CKD stage III, pulmonary HTN, anemia presents for 1 week of worsening shortness of breath and found to be bacteremic with a left sided pneumonia and MERLYN, with new-onset AFib with RVR overnight. 1) Acute on Chronic Hypoxic Respiratory Failure - increasing oxygen requirements; desaturating with respiratory treatment this morning to 84% and was switched to high flow NC at 25L with 100% FIO2 - does not tolerate BIPAP/CPAP due to emphysematous bleb - attempting titration to O2 Sat > 90% - mixed picture of source of worsening hypoxia [PNA vs. sepsis vs. fluid accumulation in lungs] - repeat CXR today to evaluate worsening pulm function - pulmonary following 2) Community Acquired Pneumonia - Initially received 1 dose Vanc/Zosyn in ED; adjusted up to Zithromax + Rocephin for past 4 days - WBC bumped up from 14k to 23k today - flutter valve, hypertonic saline nebs, incentive spirometer to move mucus and increase airflow 3) Gram negative Sepsis - started on sepsis protocol with admission; - blood cultures returned positive for gram negative bacilli today - given WBC bump and worsening oxygen demand, will broaden antibiotic coverage. After discussion with pharmacy regarding JOSE of cultures and patient's comorbidities, Azithromycin and Zosyn appear to cover Anaerobe and atypical for both PNA and Gneg sepsis. Levaquin not an option given pt's hx AAA repair. 4) New-Onset AFib with RVR - Attempting rate control with Cardizem drip and Amiodarone drip. Monitoring O2 sat and BP to titrate. - anticoagulation with Heparin drip - Cardiology Dr. Sher following. 4) MERLYN on CKD - MERLYN with Cr 3.28 on admission; baseline 1.3-1.6. Decreased to 2.0 with hydration and several fluid boluses. - Per nephrology NSS 1L @ 80/hr for gentle hydration - held Lasix at admission; restarting now with 20 mgIV given pt is +6L with minimal UOP 5) Pulmonary emphysema - Pt with chronic emphysema and a 50 pack year smoking history on chronic 3-4L NC at home. - CXR 08/18/19: Advanced emphysematous change is again noted. A bleb largely fills the right lung and this is unchanged from prior examinations. - Pulmonary recommendations: added budesonide and Perforomist as well as Spiriva 6) Elevated troponin/CHF - Likely due to worsening renal failure and poor clearance. Patient does not have complaints of chest pain. There are noted T wave inversion in inferior leads, anterior leads and lateral leads. Could be a sign of demand ischemia due to acute infection associated with sepsis and tachycardia. - Troponins trending down from 0.0.141 -> 147 -> 0.111. - TTE 08/19/19 showed EF 60-65%, mild MR, no wall motion abnormalities. - 20 mg Lasix IV to pull fluid from interstitium/lungs - Continue to monitor for cardiac signs and symptoms. 7) Odynophagia - Pt reported sore throat on exam and throat exam reveals whitish patches on tongue and soft palate consistent with oral candidiasis. Pt does use inhalers on a regular basis. - Have educated further on rinsing mouth following use of inhalers. - Have prescribed Nystatin swish and swallows q4h 8) Vitamin D deficiency - Pt receiving supplementation with Vitamin D3 2000IU daily, one dose Vitamin D2 given inpatient. 9) Anemia of chronic disease - Pt's Hgb fluctuates between 9-12 over the last 3 years. 9.9 this AM, down from 12.1 at admission on 08/18. - FOBT ordered to r/o GI bleed on heparin drip 10) Hx of hypokalemia - Pt takes potassium 20meq PO BID at home; on admission had K 5.9 -> 3.8 today. - Will resume potassium supplementation at 20meq qAM; following BMPs - Pt's son Willi asked to be called if his father is either worsening or being considered for discharge. Phone number . - On discharge pt will need [employer] contacted regarding his oxygen services as he uses them to provide his oxygen. Code Status: FULL CODE FEN/GI: Encourage further PO intake DVT ppx: currently on heparin drip due to AFib Dispo: med/surg (2) Acute on chronic kidney failure: (3) Chronic respiratory failure: (4) Pulmonary emphysema: (5) Elevated troponin: (6) Vitamin D deficiency: (7) Pulmonary hypertension, secondary: (8) Anemia: (9) Hypercholesterolemia: Supervising Physician Co-Signing Physician Notes Attending attestation Pt seen and examined in concert with Dr. Salas. In agreement with the documented findings as noted in the resident documentation with any exceptions or additions as noted here. Overnight had increased O2 need and is now on HFNC. At no point did the patient complain of worsened symptoms. Maintains a resiliently optimistic outlook regarding his condition. on examination, S1/S2 nl RRR no MCG. Left lung rhonchi and decreased right sided breath sounds throughout with some transmitted rales and ?basilar crackles. Abd NT/ND BS+ve Left sided pneumonia w/ sepsis on admission - pulmonology consultation - increased WBC and O2 need - broadened coverage to azithro/zosyn, continue budesonide nebs. High flow O2. Goals of care convo as below Emphysema, severe - avoid +ve pressure ventilation 2/2 large unilateral bleb, else as above Atrial fibrillation, new, with RVR - cardiology consultation - rate continues to improve. Continue amiodarone, dilt and AC MERLYN on CKD III - improving. Monitor Considering increasing O2 need, increased WBC count and patient disease chronicity and frailty, conversation re: potential course and goals of care. Patient expresses understanding of the severity of his chronic emphysema and the loss of most of his right lung function, as well as the presence and potential worsening of his left sided PNA. He expresses understanding that he is NOT getting better at present - he feels well because we have been progressively increasing his oxygen need. I reviewed with him in detail the potential course of action ahead of him if his symptoms worsen - the next oxygen support would be +ve pressure by either BIPAP or intubation, both of which would risk the rupture of his right sided bleb. Per previous discussion with pulmonology, this stands a high risk of resulting in inability to D/C ventilatory support and progressive worsening. He states that he understands, but still would like the mechanical/pressure ventilation support if needed. I also discussed with him in detail regarding the chronic state of his disease and his CPR status request - even on discussion of the VERY minimal chances of returning even to his disease status prior to admission, he still wishes to have CPR should he . He is willing to revisit this conversation when his children arrive for our family meeting in the AM @ 1000 Else see resident documentation as noted. Approximate time in and out: 1120 through 1210, > 30 minutes face to face time spent in counseling. Subjective Denies worsening of symptoms. Feels much better on the high flow nasal cannula. Continues to deny pain with breathing or shortness of breath, chest pain or fatigue. Discussed possibility of decompensating airway management and needing intubation. Patient does not believe his breathing will get that bad as he thinks the pneumonia is getting better and his breathing will bounce back. At further discussion he agreed that if intubation was the last option he would be amenable to it, but would prefer medical management prior to that. Additionally discussed his low to non-existent appetite and needing to drink Ensure or other supplementation to maintain caloric intake. Extensive discussion with Dr. Coppola and the patient regarding the real possibility of his breathing decompensating and requiring intubation and compressions with high likelihood of his right lung bleb popping if this occurs. Patient verbalized understanding that if intubated, he might while on ventilation or stay alive but be unable to come off ventilatory support. At this time he wishes to remain full code. Patient's son Willi was also contacted and he will be coming by the hospital with the two other sons for a family meeting regarding the patient's care status and progression of disease. The patient expressed that his eldest son Tung would be POA if he is unable to communicate. Review of Systems Constitutional: no fever, no chills, no body aches and no fatigue no appetite Respiratory: no cough and no dyspnea Cardiovascular: no chest pain, no dyspnea and no edema Gastrointestinal: no abdominal pain, no nausea, no vomiting, no constipation and no diarrhea/loose stools Physical Exam Constitutional: cooperative; no acute distress and not ill appearing Neck: normal visual inspection Respiratory: able to speak in complete sentences Auscultation: lungs clear to auscultation bilaterally and + crackles On high flow nasal cannula. Left lung moving good air, mildly rhonchorous. Right lung has new crackles anteriorly, concern for fluid accumulation. Cardiovascular: Rate/Rhythm: regular rhythm and + tachycardic Heart Sounds: normal S1 and normal S2; no gallop, no murmur and no cardiac rub Vessels: posterior tibial pulses present Extremities: no pedal edema and no edema Gastrointestinal (Abdomen): Inspection/Auscultation: abdomen normal to inspection and normal bowel sounds; abdomen not distended Percussion/Palpation: abdomen soft; abdomen nontender, no guarding, abdomen not rigid and no abdominal mass Results & Data Vital Signs (Past 12 Hours) Vital Signs Temp Pulse Pulse Resp BP Pulse Ox 08/22/19 07:57 92 H 08/22/19 07:46 36.4 C L 104 H 21 139/85 91 08/22/19 07:40 106 H 26 H 93 08/22/19 07:09 85 26 H 84 L 08/22/19 04:08 36.7 C 96 H 20 110/68 90 08/21/19 23:49 105 H 08/21/19 23:34 36.6 C 104 H 19 105/64 83 L 08/21/19 23:24 100 H 20 86 L 08/22/19 08/22/19 08/22/19 Range/Units 14:40 09:44 09:28 WBC 26.25 H (4.8-10.8) K/uL RBC 3.44 L (4.7-6.1) M/uL Hgb 10.6 L (14.0-18.0) g/dL Hct 33.6 L (42-52) % MCV 97.7 (80-100) fL MCH 30.8 (25-34) pg MCHC 31.5 L (32-36) g/dL RDW Std Deviation 56.3 H (36.4-46.3) fL RDW Coeff of Rupali 15.8 H (11.5-14.5) % Plt Count 176 (130-400) K/uL MPV 10.4 (7.4-10.4) fL Immature Gran % (Auto) 4.1 % Neut % (Auto) 88.6 % Lymph % (Auto) 3.3 % [place] % (Auto) 3.6 % Eos % (Auto) 0.2 % Baso % (Auto) 0.2 % Immature Gran # (Auto) 1.08 H (0.00-0.02) K/uL Neut # (Auto) 23.26 H (1.4-6.5) K/uL Lymph # (Auto) 0.87 L (1.2-3.4) K/uL [place] # (Auto) 0.94 H (0.11-0.59) K/uL Eos # (Auto) 0.04 (0-0.5) K/uL Baso # (Auto) 0.06 (0-0.2) K/uL Absolute Nucleated RBC 0.05 H (0-0) K/uL Nucleated RBC % (auto) 0.2 % Toxic Granulation 1+ Toxic Vacuolation Echinocytes 1+ APTT 61.2 H* (21.0-31.0) Seconds PTT Ratio 2.3 ABG pH 7.31 L (7.35-7.45) ABG pCO2 50 H (35-46) mmHg ABG pO2 63 L (80-95) mm/Hg ABG HCO3 25 H (19-24) mmol/L ABG O2 Saturation 89.0 L (90-95) % ABG Base Excess -2.1 (-9-1.8) mEq/L [place] Test Pos (Pos) Barometric Pressure 727.5 mm/Hg Oxygen Given 25 Sodium (136-145) mmol/L Potassium (3.5-5.1) mmol/L Chloride (98-107) mmol/L Carbon Dioxide (21-32) mmol/L Anion Gap (3-11) BUN (7-18) mg/dl Creatinine (0.6-1.4) mg/dl Est Cr Clr Drug Dosing ml/min Est GFR ( Amer) Est GFR (Non-Af Amer) BUN/Creatinine Ratio (10-20) Glucose (70-99) mg/dl Calcium (8.5-10.1) mg/dl Phosphorus (2.5-4.9) mg/dl Albumin (3.4-5.0) gm/dl 08/22/19 08/22/19 08/22/19 Range/Units 07:14 07:14 07:14 WBC 23.07 H (4.8-10.8) K/uL RBC 3.61 L (4.7-6.1) M/uL Hgb 11.2 L (14.0-18.0) g/dL Hct 34.7 L (42-52) % MCV 96.1 (80-100) fL MCH 31.0 (25-34) pg MCHC 32.3 (32-36) g/dL RDW Std Deviation 54.9 H (36.4-46.3) fL RDW Coeff of Rupali 15.7 H (11.5-14.5) % Plt Count 174 (130-400) K/uL MPV 10.9 H (7.4-10.4) fL Immature Gran % (Auto) 4.5 % Neut % (Auto) 88.3 % Lymph % (Auto) 3.7 % [place] % (Auto) 3.2 % Eos % (Auto) 0.1 % Baso % (Auto) 0.2 % Immature Gran # (Auto) 1.04 H (0.00-0.02) K/uL Neut # (Auto) 20.38 H (1.4-6.5) K/uL Lymph # (Auto) 0.85 L (1.2-3.4) K/uL [place] # (Auto) 0.73 H (0.11-0.59) K/uL Eos # (Auto) 0.02 (0-0.5) K/uL Baso # (Auto) 0.05 (0-0.2) K/uL Absolute Nucleated RBC 0.09 H (0-0) K/uL Nucleated RBC % (auto) 0.4 % Toxic Granulation 1+ Toxic Vacuolation 1+ Echinocytes 1+ APTT 41.7 H (21.0-31.0) Seconds PTT Ratio 1.5 ABG pH (7.35-7.45) ABG pCO2 (35-46) mmHg ABG pO2 (80-95) mm/Hg ABG HCO3 (19-24) mmol/L ABG O2 Saturation (90-95) % ABG Base Excess (-9-1.8) mEq/L [place] Test (Pos) Barometric Pressure mm/Hg Oxygen Given Sodium 140 (136-145) mmol/L Potassium 4.0 (3.5-5.1) mmol/L Chloride 109 H (98-107) mmol/L Carbon Dioxide 25 (21-32) mmol/L Anion Gap 7.0 (3-11) BUN 60 H (7-18) mg/dl Creatinine 1.77 H (0.6-1.4) mg/dl Est Cr Clr Drug Dosing 33.5 ml/min Est GFR ( Amer) 41.4 Est GFR (Non-Af Amer) 35.7 BUN/Creatinine Ratio 34.0 H (10-20) Glucose 126 H (70-99) mg/dl Calcium 9.2 (8.5-10.1) mg/dl Phosphorus 4.0 (2.5-4.9) mg/dl Albumin 2.1 L (3.4-5.0) gm/dl (1) Pneumonia Laterality: unspecified laterality Lung location: unspecified part of lung Pneumonia type: due to unspecified organism Qualified Code(s): J18.9 - Pneumonia, unspecified organism
[2019-08-22 09:55] LABS: Hematocrit (blood only) 33.6 % (42-52); Hemoglobin 10.6 g/dL (14.0-18.0); Mean Corpuscular Hemoglobin 30.8 pg (25-34); Mean Corpuscular Hgb Conc 31.5 g/dL (32-36); Mean Corpuscular Volume 97.7 fL (80-100); Mean Platelet Volume 10.4 fL (7.4-10.4); Nucleated RBC # (auto) 0.05 K/uL (0-0); Nucleated RBC % (auto) 0.2 %; Platelet Count 176 K/uL (130-400); RDW Coefficient of Variation 15.8 % (11.5-14.5); RDW Standard Deviation 56.3 fL (36.4-46.3); Red Blood Count 3.44 M/uL (4.7-6.1); White Blood Count 26.25 K/uL (4.8-10.8)
[2019-08-22] MEDS: cefTRIAXone SODIUM 1,000 MG in DEXTROSE 5% 50 ML IV SCH (10:00)
[2019-08-22 10:31] LABS: Basophils # (auto) 0.06 K/uL (0-0.2); Basophils % (auto) 0.2 %; Echinocytes 1+; Eosinophils # (auto) 0.04 K/uL (0-0.5); Eosinophils % (auto) 0.2 %; Immature Granulocytes # (auto) 1.08 K/uL (0.00-0.02); Immature Granulocytes % (auto) 4.1 %; Lymphocytes # (auto) 0.87 K/uL (1.2-3.4); Lymphocytes % (auto) 3.3 %; Monocytes # (auto) 0.94 K/uL (0.11-0.59); Monocytes % (auto) 3.6 %; Neutrophils # (auto) 23.26 K/uL (1.4-6.5); Neutrophils % (auto) 88.6 %; Toxic Granulation 1+
[2019-08-22] MEDS ORDERED: PIPERACILL/TAZOBAC CONSULT ACTIVE PRN (11:50)
[2019-08-22] MEDS ORDERED: PIPERACILLIN/TAZOBACTAM 2.25 GM in DEXTROSE 5% 100 ML IV SCH (12:00)
[2019-08-22] MEDS ORDERED: PIPERACILLIN/TAZOBACTAM 3.375 GM in DEXTROSE 5% 100 ML IV ONE (12:00)
[2019-08-22] MEDS: AMIODARONE / D5W 360 MG/200 ML BAG IV SCH ×2 (12:11→23:27)
[2019-08-22 15:12] LABS: Partial Thromboplastin Ratio 2.3
[2019-08-22 15:13] LABS: Partial Thromboplastin Time 61.2 Seconds (21.0-31.0)
[2019-08-22] MEDS: PIPERACILLIN/TAZOBACTAM 3.375 GM in DEXTROSE 5% 100 ML IV SCH (17:16)
[2019-08-22 23:35] LABS: Base Excess ABG -1.8 mEq/L (-9-1.8); HCO3 ABG 25 mmol/L (19-24); PCO2 ABG 52 mmHg (35-46); PO2 ABG 64 mm/Hg (80-95)
[2019-08-22 23:36] LABS: Allen Test POS (Pos)
[2019-08-23] MEDS: PIPERACILLIN/TAZOBACTAM 3.375 GM in DEXTROSE 5% 100 ML IV SCH (00:28)
--- NOTE | 2019-08-23 01:06 | Critical Care Consultation ---
Date of Consultation August 23, 2019 Assessment & Plan (1) Admitted to intensive care unit: Reason Critically Ill: 79-year-old male presenting with acute on chronic respiratory failure with hypercapnia in the setting of new LEFT-sided pneumonia. Patient found to be bacteremic as well. Developed rapid A. fib requiring diltiazem and heparin drips. Worsening respiratory distress requiring evaluation in the ICU. NEURO - * CAM ICU: NEGATIVE * Patient is awake, alert, and oriented. He provides entire historical information. No focal neurological deficits. CARDIAC/VASCULAR - * A. fib with RVR: * Currently rate controlled with diltiazem drip. * Anticoagulated on heparin drip. * Receiving amiodarone. * Continue per cardiology recommendations. * Right-sided heart strain in the setting of chronic lung disease. * Monitor on telemetry. RESPIRATORY - * Acute on chronic respiratory failure with hypoxia and hypercapnia: * Worsening LEFT-sided pneumonia despite aggressive measures. * Increasing O2 requirements on high settings of high flow. * Significant RIGHT-sided lung bullae essentially rendering the entire RIGHT sided lung useless for ventilation. * Had an extensive conversation with the patient at bedside on multiple occasions. Explained the severity of his illness as well as risks during intubation as well as likelihood of failure to liberate from the ventilator and likely need for tracheostomy tube placement. * Despite aggressive conversations with the patient and his son, Willi, at bedside, patient is adamant that he would want all things performed including intubation, tracheostomy tube placement, aggressive ACLS, amongst others. * Please see CODE STATUS. * Initial ABG demonstrated mild CO2 accumulation on high flow settings of 25 L at 90%. * After conversation with patient and family, patient does admit that he is having increasing work of breathing. Patient agreeable to BiPAP. * Initially, the patient did very well with BiPAP and had decreased work of breathing and reportedly felt better. * Clinically, the patient did look much more comfortable at this time. * Repeat ABG was obtained at 0500 which demonstrated worsening acidosis as well as CO2 retention. Patient appearing more somnolent. At this point, did discuss the need for emergent endotracheal intubation with the patient. Prior to intubation, I did reassess the patient. Again, he is awake, alert, and oriented with questioning. He again is adamant that he would want to be intubated. I did contact my attending physician given the complexity of case and high risk for adverse outcome. He is in route to the ICU. * Arterial line was emergently placed to the RIGHT sided radial artery for c lose hemodynamic monitoring. * RSI medications as well as equipment were present and ready at bedside. * Please see communication note for further information. GI/NUTRITION - * Would make n.p.o. with current respiratory status. RENAL/LYTES - * MERLYN on CKD. * Difficult to treat and the volume overload patient with right-sided heart disease. - * Velez in place - Strict I&Os. ENDO - * No h/o DM or Thyroid Dz * BSGs per unit protocol. ISS --> gtt per unit policy. HEME - * Stable H&H * Monitor while on Heparin gtt. ID - * LEFT sided pneumonia, Gram NEGATIVE bacteremia: * Currently on Zosyn. * Repeat cultures. LINES/IV ACCESS - * PIVs x3 * Velez DVT PROPHYLAXIS - * Heparin gtt. * SCDs I have personally spent 65 minutes of critical care time in the direct management of this patient. This is a life/limb threatening event. This includes time spent evaluating patient, direct bedside care, chart review, placing orders, interpretation of diagnostic studies, discussion with consultants, patient, and family members, as well as other required patient management activities. This time is exclusive of all separately billable procedures, and teaching time and separate from and in addition to any other critical care service time. Thank you for allowing us to participate in the care of this patient. Please refer to my attending physician's documentation for any further recommendations. (2) Acute on chronic respiratory failure: (3) Pneumonia: (4) Sepsis: (5) Gram-negative bacteremia: (6) Atrial fibrillation: (7) Acute kidney injury: (8) Acute on chronic kidney failure: (9) Elevated troponin: (10) Chronic kidney disease, stage IV (severe): (11) Pulmonary hypertension, secondary: (12) Pulmonary emphysema: (13) Anemia: (14) Cardiac failure: (15) Chronic respiratory failure: (16) Hypercholesterolemia: Supervising Physician Co-Signing Physician Notes I have personally evaluated and examined this patient. I agree with assessment and plan of Talya Adames PA-C. I was made aware of the patient via telephone in a subsequent decompensation. I was requested to present for difficult/critical intubation given severe cor pulmonale. Please see additional notes for further details. History of Present Illness Attending Physician: Chang Coppola MD Patient is a 79-year-old male with a significant past medical history of emphysema, CKD 3, chronic respiratory failure requiring home oxygen, hyperlipidemia, presenting to the emergency department on 08/18 with shortness of breath and concerns for COPD with exacerbation. Patient was also found to be bacteremic with initial blood cultures growing gram-negative x2. Patient was initially on Rocephin and azithromycin. His coverage was expanded to Zosyn today. His stay was complicated by the development of A. fib. Initially received doses of metoprolol followed by diltiazem with rate control. He was started on heparin drip. Remained on amiodarone as well. Patient's condition was complicated by new diagnosis of LEFT-sided pneumonia and known history of chronic large RIGHT sided lung bleb. Initially he did well on CPAP, however he then transition to high flow as he did not tolerate the BiPAP for extended periods of time. Despite aggressive management, the patient had persistently worsening pneumonia and tenuous respiratory status. I was contacted by on-call resident who informed me that the patient was becoming more hypoxic on high flow and increasing rates as well as more short of breath. Upon evaluation at bedside, the patient is awake, alert, and oriented. He does have labored breathing, but does answer questions appropriately. He does not finish complete sentences secondary to his breathing. Coarse breath sounds appreciated to the LEFT lung field with little to no breath sounds noted to the RIGHT. ABG was obtained which demonstrated slightly worsening CO2 retention. Decision was made to transfer the patient to the ICU for close monitoring. Allergies Allergy/AdvReac Type Severity Reaction Status Date / Time No Known Allergies Allergy Unknown Verified 08/18/19 16:18 Home Medications Home Medications Medication Instructions Recorded Confirmed Type Oxygen Home #1 ea 06/13/19 06/13/19 History albuterol sulfate 90 mcg/actuation 2 puffs INHALATION Q4H PRN #3 gm 06/13/19 08/18/19 History aerosol inhaler aspirin [Aspir-81] 81 mg PO Q OTHER DAY 08/18/19 08/18/19 History atorvastatin [Lipitor] 80 mg PO QPM 08/18/19 08/18/19 History fluticasone propion-salmeterol 1 ea INHALATION BID 08/18/19 08/18/19 History [Advair Diskus] furosemide [Lasix] 20 mg PO DAILY 08/18/19 08/18/19 History metoprolol succinate [Toprol XL] 25 mg PO DAILY 08/18/19 08/18/19 History potassium chloride [Klor-Con M20] 20 meq PO BID 08/18/19 08/18/19 History tiotropium bromide [Spiriva with 1 cap INHALATION DAILY 08/18/19 08/18/19 History HandiHaler] Patient History Medical History AAA (abdominal aortic aneurysm) s/p PEVAR [address] Villar Acute kidney injury Anemia (Acute) Cardiac failure (Acute) Chronic kidney disease, stage 3 (Acute) Chronic respiratory failure (Acute) COPD (chronic obstructive pulmonary disease) Hypercholesterolemia (Acute) Leukocytosis (Acute) Pulmonary emphysema (Acute) Pulmonary hypertension, secondary (Acute) Vitamin D deficiency (Acute) Family History Other No significant family history Social History Preferred Language: [place] Communication Ability: Effective Meat Cutter Required: No Beliefs That Will Affect Care: None Current Living Situation: Alone Feels Safe at Home: Yes Smoking Status: Former smoker Second Hand Exposure: No ; Hx Alcohol Use: No Hx Substance Use: No Review of Systems Review of Systems: A complete 10 point review of systems was reviewed with the patient with pertinent positives and negatives as per history of present illness. All else were negative. Physical Exam Physical Exam: VITAL SIGNS - Vital signs and nursing notes were reviewed. GENERAL - 79-year-old male appearing older than is stated age who is with labored breathing. Able to answer questions with simple, short answers. SKIN - Thin skin w/ multiple areas of ecchymosis. HEAD - NC/AT. EYES - PERRL with EOMI bilaterally. Sclera anicteric. Palpebral conjunctiva pink and moist with no injection noted. EARS - No deformities of external structures noted on gross examination bilaterally. NOSE - Midline and without cyanosis. No epistaxis or purulent drainage noted. MOUTH/OROPHARYNX - Without perioral cyanosis. Buccal mucosa pink and dry. NECK - Neck with FROM. Supple to palpation. No nuchal rigidity. LUNGS -cachectic appearing male with barrel chest. Tachypneic. Accessory muscle use noted. Coarse rhonchorous breath sounds noted throughout the entire LEFT-sided lung field. Little to no air movement appreciated in the RIGHT lung field. CARDIAC -irregularly irregular. No murmur, rubs, or gallops appreciated. ABDOMEN - Abdominal contour scaphoid without pulsations or visible masses. BS normoactive all four quadrants. No tenderness, palpable masses, hepatosplenomegaly, or ascites noted. EXTREMITIES - Mild pretibial edema present. +3/5 radial and dorsalis pedis pulses palpated throughout. +4/5 strength noted in UE/LE bilaterally. NEUROLOGIC - Cranial nerves II through XII grossly intact. PSYCH - A&Ox3 and cooperates fully with examiner. Pt is very pleasant and interacts well with examiner. Results & Data Vital Signs (Past 12 Hours) Vital Signs Temp Pulse Pulse Resp BP BP Pulse Ox 08/23/19 00:34 89 08/23/19 00:01 106 H 23 100/65 88 L 08/22/19 22:46 81 24 91 08/22/19 22:45 85 24 91 08/22/19 19:56 36.4 C L 96 H 20 104/58 L 94 08/22/19 19:06 107 H 24 93 08/22/19 19:05 107 H 24 93 08/22/19 15:45 36.5 C 103 H 24 102/60 93 08/22/19 15:40 98 H 20 92 08/22/19 15:34 98 H 92 08/22/19 14:45 97 H Coding Level of Care Code Critical Care 1st 30-74 mins Diagnoses Admitted to intensive care unit Z78.9 Acute on chronic respiratory failure J96.21 Respiratory failure complication: hypoxia Pneumonia J18.9 Laterality: unspecified laterality Lung location: unspecified part of lung Pneumonia type: due to unspecified organism Sepsis A41.9 Sepsis acute organ dysfunction status: unspecified Sepsis type: sepsis due to unspecified organism Gram-negative bacteremia R78.81 Atrial fibrillation I48.91 Acute kidney injury N17.9 Acute on chronic kidney failure N17.9; N18.9 Elevated troponin R79.89 Chronic kidney disease, stage IV (severe) N18.4 Pulmonary hypertension, secondary Pulmonary emphysema J43.9 Anemia D64.9 Cardiac failure I50.9 Chronic respiratory failure J96.10 Hypercholesterolemia E78.00 Time Spent (min) 65 (1) Acute on chronic respiratory failure Respiratory failure complication: hypoxia Qualified Code(s): J96.21 - Acute and chronic respiratory failure with hypoxia (2) Sepsis Sepsis acute organ dysfunction status: unspecified Sepsis type: sepsis due to unspecified organism Qualified Code(s): A41.9 - Sepsis, unspecified organism (3) Pneumonia Laterality: unspecified laterality Lung location: unspecified part of lung Pneumonia type: due to unspecified organism Qualified Code(s): J18.9 - Pneumonia, unspecified organism
[2019-08-23] MEDS: ALBUT/IPRATROP 3MG/0.5MG NEB 3 ML VIAL NEB SCH ×2 (03:55→07:41)
[2019-08-23] MEDS ORDERED: RAPID SEQUENCE INDUCTION BAG ONE (05:01)
[2019-08-23] MEDS ORDERED: PHENYLEPHRINE 100MCG/ML 5ML SYR IV PRN (05:01)
[2019-08-23 05:02] LABS: Partial Thromboplastin Ratio 1.7
[2019-08-23 05:05] LABS: Albumin Level 2.1 gm/dl (3.4-5.0); BUN Creatinine Ratio 29.9 (10-20); Calcium 8.9 mg/dl (8.5-10.1); Creatinine Clr Calc Pharmacy 30.1 ml/min; Est GFR (African American) 36.4; Est GFR (Non-African American) 31.4; Potassium 3.7 mmol/L (3.5-5.1)
[2019-08-23 05:08] LABS: Albumin Globulin Ratio 0.5 (0.9-2); Bilirubin,Total 0.6 mg/dl (0.2-1); Globulin 4.3 gm/dl (2.5-4.0); Total Protein 6.4 gm/dl (6.4-8.2)
[2019-08-23 05:09] LABS: iSTAT Allen Test Pass; iSTAT Arterial Blood Gas HCO3 28 meg/L (19-24); iSTAT Arterial Blood Gas pCO2 72 mmHg (35-46); iSTAT Arterial Blood Gas pO2 110 mmHg (80-95); iSTAT Carbon Dioxide 31 mEq/l (24-31); iSTAT FiO2 100 %; iSTAT Site L Radial
[2019-08-23 05:10] LABS: Partial Thromboplastin Time 46.2 Seconds (21.0-31.0)
[2019-08-23 05:13] LABS: Hematocrit (blood only) 33.4 % (42-52); Hemoglobin 11.1 g/dL (14.0-18.0); Mean Corpuscular Hemoglobin 32.3 pg (25-34); Mean Corpuscular Hgb Conc 33.2 g/dL (32-36); Mean Corpuscular Volume 97.1 fL (80-100); Mean Platelet Volume 11.1 fL (7.4-10.4); Nucleated RBC % (auto) 0.3 %; Platelet Count 223 K/uL (130-400); RDW Coefficient of Variation 15.9 % (11.5-14.5); RDW Standard Deviation 55.7 fL (36.4-46.3); Red Blood Count 3.44 M/uL (4.7-6.1); White Blood Count 32.86 K/uL (4.8-10.8)
[2019-08-23] MEDS ORDERED: MIDAZOLAM HCL 125 MG/250 ML BAG IV SCH (05:25)
[2019-08-23 05:42] LABS: ANC (manual) 29.15 K/uL (1.4-6.5); Echinocytes 2+; Hypogranular Neutrophils 1+; Monocytes # (manual) 0.85 K/uL (0.11-0.59); Monocytes % (manual) 2.6 %; Myelocytes # (manual) 0.56 K/uL (0-0); Myelocytes % (manual) 1.7 %; Neutrophils # (manual) 29.15 K/uL (1.4-6.5); Neutrophils % (manual) 88.7 %
[2019-08-23 05:43] LABS: iSTAT Arterial Blood Gas HCO3 27 meg/L (19-24); iSTAT Arterial Blood Gas pCO2 67 mmHg (35-46); iSTAT Arterial Blood Gas pH 7.21 (7.35-7.45); iSTAT Arterial Blood Gas pO2 62 mmHg (80-95); iSTAT Carbon Dioxide 29 mEq/l (24-31); iSTAT FiO2 60 %; iSTAT Site Art Line
[2019-08-23] MEDS: PHENYLEPHRINE HCL 20 MG in DEXTROSE 5% 500 ML IV SCH ×2 (05:43→07:33)
[2019-08-23] MEDS ORDERED: NOREPINEPHRINE (Adult) 8 MG in DEXTROSE 5% 500 ML IV SCH (06:30)
[2019-08-23] MEDS ORDERED: EPINEPHrine 4 MG in DEXTROSE 5% HYPOTENSION IV SCH (06:30)
--- NOTE | 2019-08-23 07:06 | XRay Report ---
XR chest 1V portable CLINICAL HISTORY: hypoxia dyspnea COMPARISON STUDY: 08/22/2019, 04/19/2015. FINDINGS: Endotracheal tube 4 cm above the kimberly. Parenchymal infiltrative process left hemithorax. Shift of the cardiomediastinal silhouette to the left. Large bleb right hemithorax with possible superimposed lateral pneumothorax. IMPRESSION: 1. Large bleb right hemithorax with linear density raising the possibility of a superimposed lateral right pneumothorax. The patient is rotated to the left making exclusion of a true cardiomediastinal s ilhouette shift to the left impossible. 2. Mildly progressive infiltrative changes left hemithorax. 3. Endotracheal tube 4 cm above the kimberly. The above report was generated using voice recognition software. It may contain grammatical, syntax or spelling errors. Electronically signed by: Jairo Lindsay M.D. 08/23/2019 7:04 AM
--- NOTE | 2019-08-23 07:12 | Procedure Note ---
Procedure Note Date of Service August 23, 2019 Procedure: Arterial Line Placement Attending: Dr. Lyles APC: Stephen Adames PA-C Indication: Monitoring on Pressors Anesthesia: Lidocaine 1% Verbal consent was obtained prior to performing the procedure. Given the critical nature of the patient's condition and need for close hemodynamic monitoring prior to emergent endotracheal intubation, consent implied. A time-out was completed verifying correct patient, procedure, site, positioning, and implant(s) or special equipment if applicable. Allens test was performed to ensure adequate perfusion. Patients RIGHT wrist was prepped and draped in the usual sterile fashion. Ultrasound guidance was used to aid needle placement. A 20g Arrow arterial line was introduced into the RIGHT Radial artery. Catheter was threaded, and the needle was removed with appropriate blood return. Good waveform was observed. The patient tolerated the procedure well. Confirmation of placement with ultrasound. Blood Loss: Minimal Complications: None Procedural Ultrasound Guidance: Procedure Date: 08/23/2019 Indication: Pressure monitoring, ABGs, Pressors. Attending: Dr. Lyles APC: Stephen Adames PA-C Artery Identified: YES Line confirmed in Artery with ultrasound: YES Complications: NONE Patient tolerated procedure: WELL Coding CPT Codes Tubes, Drains, and Vasc Access - Tubes, Drains, and Vasc Access: [id number] Insertion Catheter, Artery ([id number])
--- NOTE | 2019-08-23 07:12 | Procedure Note ---
Procedure Note Date of Service August 23, 2019 APC: Stephen Adames PA-C. Attending: Dr. Lyles A time-out was completed verifying correct patient, procedure, site, positioning. Patient was evaluated and required intubation for worsening hypoxic and hypercarbic respiratory failure with increasing fatigue requiring airway protection. Sedative agent used: Etomidate, fentanyl Paralysis agent used: None Emergent consent was implied given patients rapidly declining clinical status and need for airway protection. Extensive conversation was had with patient and family at great length describing the procedure as well as the patient's great risks for extended intubation, likely need for tracheostomy tube placement, risk for secondary to pulmonary status and RIGHT-sided heart disease, amongst others. Despite this extended conversation and the patient/family is understanding, they do wish to proceed with emergent endotracheal intubation. The patient was prepared in the appropriate fashion. Sedation was achieved utilizing Fentanyl, Versed, and Etomidate, per Dr. Lyles administration. The patient was easily ventilated using [id number] to achieve adequate oxygenation. An 8.0 Serbian endotracheal tube was placed using Glidescope to 25 cm at the lip. The stylette was removed and balloon was inflated with 10mL of air. Appropriate Colorimetric change was appreciated. Great breath sounds appreciated over the LEFT-sided lung field. Little to no breath sounds appreciated to the RIGHT. Consistent with preprocedure RIGHT-sided large bleb. Dr. Lyles was present for the entire procedure. Post Intubation Chest X-ray confirms placement without pneumothorax. Patient tolerated the initial procedure well. Coding CPT Codes Resuscitation - Resuscitation: [id number] Endotracheal Intubation, emergency ([id number])
--- NOTE | 2019-08-23 07:13 | Procedure Note ---
Procedure Note Date of Service August 23, 2019 RIGHT IJ Coding
[2019-08-23] MEDS ORDERED: SODIUM BICARBONATE 8.4% 150 MEQ in DEXTROSE 5% 1,000 ML IV SCH (07:15)
[2019-08-23] MEDS ORDERED: MoRPHine SULFATE 4 MG/ML 1 ML CARP\\VIAL IV STA (07:20)
--- NOTE | 2019-08-23 07:36 | Procedure Note ---
Procedure Note Date of Service August 23, 2019 Procedure Note Procedure: Central Line Placement Reason for procedure: Need for pressors, lack of IV access in this patient. Attending Physician: Dr. Lyles Procedure Performed by: Dr. Lala, PGY2, Stephen Adames PA-C Consent was implied in the emergent code blue setting with Full Code status. The patient was placed in supine position. R IJ was visualized with ultrasound guidance and confirmed by compressability. Under strict sterile field, pt was draped in the usual fashion, the skin was prepped with chlorhexidine, at the right IJ area midclavicular, 5 mL 1% lidocaine was injected, using Seldinger technique and ultrasound guidance without a scalpel, a dilator was used, the l ine was placed to 15 cm, all ports were flushed with normal saline, the line was secured with a statlock and 2x sutures at the port, 2x suture at the statlock, covered with surgical dressing, chest x-ray performed which showed adequate placement of the catheter tip near the cavoatrial junction. a large bleb in the R hemithorax was concerning for superimposed lateral right pneumothorax. Procedure was complicated by the formation of a hematoma at the R IJ site during the procedure. The procedure was done by myself, Stephen Adames PA-C, and Dr. Lyles who was present throughout the entire procedure. Supervising Physician Co-Signing Physician Notes I was present and assisted the resident physician through the entire procedure. Dynamic ultrasound guidance of a right internal jugular central venous access. Coding Resident Activity Tracking Resident Involvement: Resident Care Provided Care Provided: [facility]
[2019-08-23] MEDS: BUDESONIDE 0.5 MG/2 ML VIAL (PULMICORT) NEB SCH (07:41)
[2019-08-23] MEDS: FORMOTEROL 20 MCG/2 ML VIAL NEB SCH (07:41)
--- NOTE | 2019-08-23 07:51 | Death Summary ---
Date of Service August 23, 2019 Pronouncement Note Contributing Factors (1) Pneumonia: (2) Acute on chronic kidney failure: (3) Chronic respiratory failure: (4) Pulmonary emphysema: (5) Elevated troponin: (6) Vitamin D deficiency: (7) Pulmonary hypertension, secondary: (8) Anemia: (9) Hypercholesterolemia: Additional Data Attending physician: Chang Coppola MD Patient with severe end-stage bullous emphysema, severe COPD with a gram- negative pneumonia and associated gram-negative bacteremia with acute on chronic hypoxic respiratory failure and severe cor pulmonale the patient required intubation however patient was unable to oxygenate and ventilate secondary to the aforementioned pneumonia and severe COPD. Despite aggressive resuscitative efforts the patient had cessation of all mechanical and electrical cardiac activity and had no spontaneous respirations and subsequently on August 23, 2019 at 0749. Family was present at the bedside and grieving.
--- NOTE | 2019-08-23 09:14 | Discharge Summary ---
Date of Service August 23, 2019 Admission HPI Per Admitting Provider Patient is a 79 years old male with past medical history of abdominal aortic aneurysm without rupture, congestive heart failure, chronic kidney disease stage III, chronic respiratory failure, elevated PSA, hypercholesterolemia, COPD/emphysema who presents to the emergency room with a complaint of constant shortness of breath that started yesterday and it is worsening. She reports that shortness of breath is associated with cough with very small amount of sputum. Patient was given DuoNeb treatments en route to the emergency department which he reports made him feel better. Patient said that he is typically on oxygen 2 to 3L but denies using BiPAP or CPAP. Patient continues chewing tobacco but states that he quit smoking approximately 15 years ago. Patient denies having fever, chills, headache, chest pain, abdominal pain, frequency, urgency, syncope or near syncope. Labs are reviewed: Which shows WBCs of 8.52, hemoglobin 12.1, hematocrit 36.1. PT 10.9, INR 1.1, APTT 34.3. Gas pH 7.23, PCO2 50, PO2 20, HCO2 21, sodium 141, potassium 5.9-we will repeat potassium BMP stat pending, BUN 79, creatinine 3.28, GFR of 17, lactate of 2.7 repeated 1.8, calcium of 9.7, phosphorus 5.9 , magnesium 2.6, total bilirubin 1.3, AST 30, ALT 22, alkaline phosphatase 115, troponin 0 0.141, BNP 64781, lipase 25, procalcitonin 7.4 extremely high TSH 0.624. Blood cultures pending. Chest x-ray significant for a spares consolidation in the left mid to lower lung and there is a small left pleural effusion. The appearance is typical for pneumonia/aspiration pneumonitis. Advanced emphysematous changes is again noted. Labs largely feels the right lung and this is unchanged from the prior examination. Emergency room patient was given DuoNeb x1, 1 L of normal saline bolus, Solu-Medrol 125 mg x 1, Zosyn 4.5 mg x 1, BiPAP. Decision was made to admit patient to PCU on telemetry for further management and treatment of pneumonia, respiratory failure, sepsis and hypoxia. Admission Exam Per Admitting Provider WD/WN, vitals as above well developed and + cachectic Eyes: PERRL, conjunctivae normal, anicteric sclerae ENMT: external ear and nose normal, oropharynx normal Neck: trachea midline, no thyromegaly Respiratory: + respiratory distress Auscultation: + crackles and + wheezes Cardiovascular: Heart Sounds: normal S1 and normal S2 Vessels: dorsalis pedis pulses present Musculoskeletal: no cyanosis or clubbing, extremities motor strength 5/5 Skin: no rashes, warm and dry Neurologic: patellar DTR's 2+ bilat, sensation intact Psychiatric: A+Ox3, euthymic affect Lymphatic: no cervical or axillary lymphadenopathy Principal Diagnosis Sepsis, Acute on Chronic Hypoxic Respiratory Failure Discharge Data Allergies Allergy/AdvReac Type Severity Reaction Status Date / Time No Known Allergies Allergy Unknown Verified 08/18/19 16:18 Consultations 08/18/19 15:27 ED Decision to Admit Stat 08/18/19 18:12 Consult Pulmonology Routine 08/18/19 21:03 Consult Nephrology Routine 08/19/19 18:37 Consult Cardiology Routine 08/22/19 07:22 Consult Nutrition Routine 08/23/19 07:57 Consult Automatic Chief Routine Ordered Studies 08/19/19 US renal/blad retro comp Routine Hospital Course (1) Pneumonia: 79 yo M PMHx emphysema, CKD stage III, pulmonary HTN, anemia presented for 1 week of worsening shortness of breath and found to be bacteremic with a left sided pneumonia and MERLYN, with new-onset AFib with RVR. 1) Acute on Chronic Hypoxic Respiratory Failure During his stay, Mr. Jim required increasing amounts of oxygen to support proper O2 saturation. He was admitted to the hospital on 08/18 using 3L NC at home and required 25L high flow NC at 100%FIO2 by the morning of 08/22. Efforts were made to stay away from BIPAP and CPAP management as there was concern for rupture of his large right pulmonary bleb with pressurized ventilation. Given the progression of increasing oxygen requirements, an extensive conversation was had with him regarding the possibility of needing intubation and compressions, and the high likelihood that either of these options would lead to rupture of his pleural bleb, irreversible intubation or . After hearing all of the possible damage vs net benefit CPR would bring, Mr. Jim opted to stay full code. Decision was made to have a family meeting regarding his status of care the following morning at 10 am. Overnight he was moved to the ICU for increasing oxygen demand and instability. By field cashier he was noted to be having decreasing saturations again and was intubated to provide respiratory support. He continued to decline in cardiac and respiratory status, leading to a code blue and CPR being performed, after which he did not recover cardiac or respiratory function and at 7:49 AM 08/23. 2) Community Acquired Pneumonia and Gram Negative Sepsis Initially received 1 dose Vanc/Zosyn in ED which was adjusted up to Zithromax and Rocephin for 4 days based on initial culture growth. On day 5 repeat blood cultures grew gram negative Bacilli, at which time antibiotic management was escalated with Zithromax and Zosyn. Throughout his admission he received treatments with the flutter valve, hypertonic saline nebs, incentive spirometer to help move mucus and increase airflow. 4) New-Onset AFib with RVR Per cardiology, rate and rhythm control managed with cardizem and amiodarone drips. 5) Pulmonary emphysema His chest xray done on admission showed advanced emphysematous change in his lungs, and a bleb filing the majority of his right lung, though unchanged from previous exams. Pulmonary was consulted, and per their recommendations budesonide, perforomist and Spiriva were added to his medication regimen to control his emphysema. 6) MERLYN on CKD MERLYN on admission with creatinine of 3.28; patient's baseline was 1.3-1.6. Per nephrology, gentle hydration was provided which led to a slow and steady return toward baseline creatinine. Given the number of IV drips he had running, he also received multiple doses of Lasix to try and offload fluid being retained. 7) CHF and elevated troponins TTE on 08/19/19 showed EF 60-65%, mild MR, no wall motion abnormalities. He did not have any complaints of chest pain, though T wave inversions were noted in inferior leads, anterior leads and lateral leads. These could have been a sign of demand ischemia due to acute infection associated with sepsis and tachycardia. Troponins were downtrended and he was monitored for pulmonary congestion from fluid overload and treated with IV lasix as needed to help relieve the fluid backup. (2) Acute on chronic kidney failure: (3) Chronic respiratory failure: (4) Pulmonary emphysema: (5) Elevated troponin: (6) Vitamin D deficiency: (7) Pulmonary hypertension, secondary: (8) Anemia: (9) Hypercholesterolemia: Total Time Total Time Spent Total Time Spent (In Minutes): Discharge Plan Discharge Items Patient Disposition: Reason For Visit: RESPIRATORY FAILURE,SEPSIS,PNA,SEVERE AMPHYSEMA,PL Follow-up/Referrals: Chang Matthews MD [Primary Care Provider] - Medications and DC Order Krames/Other Patient Handouts: Disease Chronic Lung Nutrition, A1C Print Language: Cameroonian Admission Data Admit Date/Time: 08/18/19 16:26 Other DC Date/Time DO NOT enter until pt leaves facility: 08/23/19 10:14 Supervising Physician Co-Signing Physician Notes Attending attestation Pt seen and examined in concert with Dr. Salas. In agreement with the documented findings as noted in the resident documentation with any exceptions or additions as noted here. For full evaluation from this day, please refer to optoelectronic technician documentation. Acute on chronic respiratory failure in the setting of left sided pneumonia w/ sepsis and severe emphysema - pulmonology and optoelectronic technician consultation - progressively worsening oxygen need necessitating pressure support as noted despite increased abx coverage. Goals of care conversation noted below. Resultant transition to ICU for increased level of care and destabilization as noted in ICU documentation. Considering increasing O2 need, increased WBC count and patient disease chronicity and frailty, conversation re: potential course and goals of care. Patient expresses understanding of the severity of his chronic emphysema and the loss of most of his right lung function, as well as the presence and potential worsening of his left sided PNA. He expresses understanding that he is NOT getting better at present - he feels well because we have been progressively i ncreasing his oxygen need. I reviewed with him in detail the potential course of action ahead of him if his symptoms worsen - the next oxygen support would be +ve pressure by either BIPAP or intubation, both of which would risk the rupture of his right sided bleb. Per previous discussion with pulmonology, this stands a high risk of resulting in inability to D/C ventilatory support and progressive worsening. He states that he understands, but still would like the mechanical/pressure ventilation support if needed. I also discussed with him in detail regarding the chronic state of his disease and his CPR status request - even on discussion of the VERY minimal chances of returning even to his disease status prior to admission, he still wishes to have CPR should he . Else see resident documentation as noted. Resident Activity Tracking Resident Involvement: Resident Care Provided Care Provided: Adult Hospital Medicine
[2019-08-23] MEDS ORDERED: SUCCINYLCHOLINE CHLORIDE 20 MG/ML 10 ML VIAL IV ONE (10:13)
[2019-08-23] MEDS ORDERED: KETAMINE HCL INJ 50 MG/ML 10 ML VIAL IV ONE (10:13)
[2019-08-23] MEDS ORDERED: CALCIUM CHLORIDE 10% 10 ML SYR IV ONE (10:13)
[2019-08-23] MEDS ORDERED: SODIUM BICARB 8.4% INJ 50 MEQ/50 ML SYR IV ONE (10:13)
[2019-08-23] MEDS ORDERED: SODIUM CHLORIDE 0.9% 10ML FLUSH IV ONE (10:13)
[2019-08-23] MEDS ORDERED: ETOMIDATE 2 MG/ML 20 ML VIAL IV ONE (10:13)
--- NOTE | 2019-08-23 10:18 | Communication Note ---
Date of Service: August 23, 2019 Shortly before 0500, the patient was noted to be more somnolent. The patient was assessed at bedside. He does awaken to stimuli. He is still communicative. Repeat ABG was obtained which demonstrated worsening acidosis and CO2 accumulation despite utilization of BiPAP. At this point, given the patient's ongoing work of breathing and current state, I am generally concerned the patient was wearing out from his ongoing respiratory struggles. Patient has decreased respiratory rate. BiPAP settings were changed. I did reach out to my attending physician prior to electing to perform intubation given the complexity of the patient's medical conditions. Did have extensive discussion with the patient at bedside. He is awake, alert, and oriented and able to make decisions on his own. Despite my ongoing expression of concerns for risk of injury, , or prolonged intubation and need for tracheostomy tube placement, the patient wished for us to proceed with endotracheal intubation. In preparation, RSI kit was readied for my attending's arrival. Daniel-Synephrine pushes were present for blood pressure support in the RIGHT-sided heart failure patient with labile blood pressures. Arterial line was placed for close hemodynamic monitoring. Please see separate note. Transition of care was handed off to my attending physician at 0600. Please see his dictation for continuation of care from this point on. I have personally spent 60 minutes of critical care time in the direct management of this patient. This is a life/limb threatening event. This includes time spent evaluating patient, direct bedside care, chart review, placing orders, interpretation of diagnostic studies, discussion with consultants, patient, and family members, as well as other required patient management activities. This time is exclusive of all separately billable procedures, and teaching time and separate from and in addition to any other critical care service time.
[2019-08-23 11:28] LABS: iSTAT Arterial Blood Gas HCO3 33 meg/L (19-24); iSTAT Arterial Blood Gas pCO2 87 mmHg (35-46); iSTAT Arterial Blood Gas pH 7.18 (7.35-7.45); iSTAT Arterial Blood Gas pO2 55 mmHg (80-95); iSTAT Carbon Dioxide 35 mEq/l (24-31); iSTAT FiO2 100 %; iSTAT Site Art Line
[2019-08-23 11:28] LABS: iSTAT Creatinine 1.9 mg/dl (0.6-1.3); iSTAT Hemoglobin 10.2 g/dl (14.0-18.0); iSTAT Ionized Calcium 1.17 mmol/l (1.12-1.32); iSTAT Potassium 3.6 mEq/L (3.3-5.0)
[2019-08-24 13:54] LABS: iSTAT Arterial Blood Gas pCO2 < 10 mmHg (35-46); iSTAT Arterial Blood Gas pH 7.02 (7.35-7.45); iSTAT Arterial Blood Gas pO2 74 mmHg (80-95); iSTAT Carbon Dioxide < 5 mEq/l (24-31); iSTAT FiO2 100 %; iSTAT Site Art Line
--- NOTE | 2019-08-24 17:33 | Procedure Note ---
Procedure Note Date of Service August 23, 2019 Procedure date: Noted above Procedure: Cardiopulmonary resuscitation Pre-procedure Diagnosis: CODE BLUE, cardiac arrest Post-procedure Diagnosis: same as above Prior to Procedure: Informed Consent: Emergent Attending Staff: Deandre Lyles DO Please refer to nursing code flowsheet for further details Description of Procedure: ACS protocols were followed for a pulseless electrical activity following shortly after transition to positive pressure ventilation. There was return of spontaneous circulation for a short time interval. The patient required supratherapeutic doses of multiple vasoactive medications. Total CPR time was 5 minutes. Family was present at the bedside during the entire procedure, ultimately decision was made to transition to comfort care and the patient ultimately despite heroic efforts. Complications: Patient was felt to enter an end-stage terminal condition without meaningful chance of recovery, son present at the bedside elected to discontinue heroic resuscitative efforts and the patient at 0749 Coding CPT Codes Resuscitation - Resuscitation: [id number] Heart/lung resuscitation CPR ([id number])
--- NOTE | 2019-08-24 17:48 | Communication Note ---
Date of Service: August 23, 2019 Care was transitioned from Talya Adames to myself at 0 5:00, I supervised him during the intubation. Patient had family members at the bedside, we extensively discovered the risks and benefits of intubation, the patient has severe bullous emphysema, severe cor pulmonale, bacteremia, bacterial pneumonia and I was very explicit that the simple fact of intubation may cause the patient to enter cardiac arrest. All family members agree that this is consistent with the patient's desire to pursue all her heroic efforts. I also discussed this with the patient who wanted to proceed with aggressive resuscitative efforts. Shortly after intubation the patient became bradycardic and during a pulse check he was noted to be in pulseless electrical activity. CODE BLUE was called and the patient underwent approximately 5 minutes of CPR and had return of spontaneous circulation however he required aggressive supratherapeutic doses of vasoactive medication. Different medications were utilized in an attempt to decrease pulmonary vascular resistance because it was obvious that the patient was also having difficulty oxygenating as well as ventilating which was anticipated prior to the intubation. We checked serial ABGs, and the patient continued to have a profound acidosis, profound hypercarbia and profound hypoxia. I was in frequent update with the family, after approximately 90 minutes of ongoing high-dose vasopressor use and ongoing hypoxia it was felt that the patient had entered a terminal state and was no longer responding to heroic measures and we were in fact sustaining his life. Since the patient was clear that he did not want to be permanently attached to machines and wanted a high level of independence and this would be incompatible with his current state the son decided to discontinue efforts. The patient was extubated and vasoactive medications were stopped, pain medications were ordered if there was any evidence of discomfort and the patient ultimately at 0749.
--- NOTE | 2019-08-24 17:49 | Billing Data ---
Coding Level of Care Code Critical Care chong addt'l 30 min
== END 2019-08-23 10:14 | disposition expired | DRG 871 ==
LOC: ED 14:00 → SUATTDRO 16:26 → 2S 16:26 → 1E 08-23 00:50